=== PATIENT | male | born 1930 | race Caucasian/White ===

== ENCOUNTER 2017-12-14 12:53 | Emergency (ER) | payer MEDICARE, MEDICAID ==
[~2017-12-14] VITALS: Ht 162.6 cm; Wt 77.6 kg
[2017-12-14 12:55] VITALS: BP 145/70
== END 2017-12-14 13:26 | disposition home or self-care (01) ==
LOC: ER 12:56
DX: I95.9 Hypotension, unspecified (principal); F03.90 Unspecified dementia, unspecified severity, without behavioral disturbance, psychotic disturbance, mood disturbance, and anxiety; E11.9 Type 2 diabetes mellitus without complications; I10 Essential (primary) hypertension; I45.10 Unspecified right bundle-branch block; N40.0 Benign prostatic hyperplasia without lower urinary tract symptoms
CPT/HCPCS: A4606; Z7610

== ENCOUNTER 2018-02-24 18:03 | Inpatient (IN) | payer MEDICARE, MEDICAID ==
[~2018-02-24] VITALS: Ht 167.6 cm; Wt 72.1 kg
--- NOTE | 2018-02-24 18:10 | NUR ---
PT BIB RA C/O GENERALIZED WEAKNESS AND LETHARGY. DENIES PAIN, SOB, OR ACUTE DISTRESS. FOUND TO HAVE LOW BP AND BRADYCARDIA. NO CHEST PAIN. CAP REFILL WNL. RESP EVEN UNLABORED. SKIN WARM DRY. IN ER BED 14 ON MONITOR.
[2018-02-24] MEDS ORDERED: IV NS 0.9% 500 ML BAG IV ONE (19:00)
--- NOTE | 2018-02-24 19:09 | NUR ---
REPORT REC'D FROM DIMA ONEILL FOR LILLIAN.
--- NOTE | 2018-02-24 19:09 | NUR ---
Emi wallace in [facility] - 02/24/18 at 1911 by JOAO REPORT BAILEY FROM DIMA ONEILL FOR LILLIAN.
[2018-02-24 19:21] LABS: BASOPHILS # (AUTO) 0.1 /CMM (0.0-0.2); EOSINOPHILS % (AUTO) 0.1 % (0.0-6.0); HEMATOCRIT 31 % (39-51); HEMOGLOBIN 10.7 g/dL (13.5-17.5); LYMPHOCYTES # (AUTO) 0.6 /CMM (0.8-4.8); LYMPHOCYTES % (AUTO) 4.9 % (20.0-44.0); MEAN CORPUSCULAR HGB CONC 35 g/dl (31.0-36.0); MEAN CORPUSCULAR VOLUME 86 fL (80-96); MONOCYTES # (AUTO) 0.6 /CMM (0.1-1.30); MONOCYTES % (AUTO) 5.5 % (2.0-12.0); NEUTROPHILS % (AUTO) 88.5 % (43.0-81.0); PLATELET COUNT (AUTO) 402 /CMM (150-450); RDW COEFFICIENT OF VARIATION 14.1 (11.5-15.0); RED BLOOD CELL COUNT(AUTO) 3.62 MIL/uL (4.5-6.0); WHITE BLOOD COUNT (AUTO) 11.3 K/uL (4.3-11.0)
--- NOTE | 2018-02-24 19:24 | NUR ---
DR. MALONE IS AT THE BEDSIDE SPEAKING TO THE PT. PT IS MARCELLUS AT 39, HYPOXIC WITH O2 SAT AT 89-90% ON RA. PT PLACED ON 3L O2 VIA NC. SATURATING AT 94%. PT HAS 250ML NS INFUSING. PT'S BP IS LOW 89/49.
--- NOTE | 2018-02-24 19:26 | NUR ---
PER DR. MALONE, CALL DR. CARRILLO FOR CONSULT.
--- NOTE | 2018-02-24 19:26 | NUR ---
DR. MALONE IS SPEAKING TO Jarrod RHOD[facility]-
[2018-02-24 19:36] LABS: CALCIUM, SERUM 8.9 mg/dL (8.5-10.1); CARBON DIOXIDE 18 mmol/L (21-32); CHLORIDE 99 mmol/L (98-107); CREATININE 6.8 mg/dL (0.6-1.3); GLUCOSE 217 mg/dL (74-106); SODIUM SERUM 131 mmol/L (136-145); UREA NITROGEN, BLOOD 65 mg/dL (7-18)
[2018-02-24 19:38] LABS: INR 1.06 (0.85-1.15); POTASSIUM 8.2 mmol/L (3.5-5.1)
--- NOTE | 2018-02-24 19:39 | NUR ---
RECEIVED CRITICAL LAB VALUE, POTASSIUM 8.2
[2018-02-24] MEDS ORDERED: Calcium Gluconate 0.465 MEQ/ML VIAL IV ONE (19:46)
[2018-02-24 19:47] LABS: TROPONIN I 0.029 ng/mL (0.00-0.056)
[2018-02-24] MEDS ORDERED: INSULIN REGULAR, HUMAN 100 UNIT/ML 10 ML VIAL ONE (19:47)
[2018-02-24] MEDS ORDERED: DEXTROSE 50%-WATER 50 ML DISP.SYRIN ONE (19:47)
[2018-02-24] MEDS ORDERED: SODIUM POLYSTYRENE SULFONATE 15 G/60 ML BOTTLE ONE (19:47)
--- NOTE | 2018-02-24 19:50 | NUR ---
CALLED [facility] NEPHROLOGY MARKETING COMMUNICATIONS LEADER WAS PAGED.
[2018-02-24] MEDS ORDERED: SODIUM BICARBONATE SYR 50 MEQ/50 ML DISP.SYRIN ONE (19:56)
--- NOTE | 2018-02-24 19:57 | NUR ---
PT IS REC'ING MEDICATION ORDERED.
[2018-02-24] MEDS ORDERED: INSULIN REGULAR, HUMAN 100 UNIT/ML 10 ML VIAL IV ONE (20:00)
[2018-02-24] MEDS ORDERED: SODIUM BICARBONATE SYR 50 MEQ/50 ML DISP.SYRIN IV ONE (20:00)
[2018-02-24] MEDS ORDERED: DEXTROSE 50%-WATER 50 ML DISP.SYRIN IVP ONE (20:00)
[2018-02-24] MEDS ORDERED: ALBUTEROL FS 2.5 MG/3 ML VIAL.NEB NEB ONE (20:00)
[2018-02-24] MEDS ORDERED: Calcium Gluconate 1GM/10ML 4.65 MEQ in IV NS 0.9% 50 ML IV ONE (20:00)
[2018-02-24] MEDS ORDERED: SODIUM POLYSTYRENE SULFONATE 15 G/60 ML BOTTLE PO ONE (20:00)
--- NOTE | 2018-02-24 20:04 | NUR ---
INSULINE DOSAGE VERIFIED WITH HIDE SPLITTER MOISES.
--- NOTE | 2018-02-24 20:10 | NUR ---
CALLED DR FAISAL FLORES WAS PAGED.
--- NOTE | 2018-02-24 20:10 | NUR ---
CALLED RT RE: BREATHING TX FOR PT. PT'S FAMILY IS AT THE BEDSIDE.
--- NOTE | 2018-02-24 20:11 | NUR ---
2ND EKG DONE AT THE BEDSIDE. JUNCTIONAL RHYTHM NOTED. DR. PADILLA IS AWARE. Jarrod RHODES, [facility]
[2018-02-24] MEDS ORDERED: ALBUTEROL FS 2.5 MG/3 ML VIAL.NEB ONE (20:20)
--- NOTE | 2018-02-24 20:20 | NUR ---
CALLED DR CARMONA ON THE PHONE WITH DIA ESPITIA
--- NOTE | 2018-02-24 20:20 | NUR ---
CONSENT FOR JENNY CATH INERSTION IN CHART
[2018-02-24] MEDS ORDERED: HEPARIN SODIUM, PORCINE 5000 UNITS/1 ML VIAL ONE (20:33)
--- NOTE | 2018-02-24 20:45 | NUR ---
DR. CARMONA IS AT THE BEDSIDE FOR JENNY CATH INSERTION.
--- NOTE | 2018-02-24 20:55 | NUR ---
REPORT GIVEN TO DIMA JOHNS - ICU
[2018-02-24] MEDS ORDERED: VANCOMYCIN 1 GM in IV D5W 250 ML IV STA (20:58)
[2018-02-24] MEDS ORDERED: CEFTRIAXONE 2 G in IV D5W 100 ML IV ONE (21:00)
[2018-02-24] MEDS ORDERED: AZITHROMYCIN 500 MG in IV D5W 250 ML IV ONE (21:00)
--- NOTE | 2018-02-24 21:01 | NUR ---
JENNY CATH BEING INSERTED BY DR CARMONA - US GUIDED STERILE PROCEDURE
[2018-02-24] MEDS ORDERED: CEFTRIAXONE 1GM BAG (ER ONLY) 50 ML IV ONE ×2 (21:09→21:19)
--- NOTE | 2018-02-24 21:10 | NUR ---
CXR DONE AT THE BEDSIDE. JENNY CATH IN PLACE PER DR. CARMONA. OK TO USE FOR HD.
--- NOTE | 2018-02-24 21:11 | NUR ---
ENDORSING VANCO AND ZITHROMYCIN IVPB'S TO ICU NURSE. ORDERS IN CHART.
--- NOTE | 2018-02-24 21:25 | NUR ---
BLOOD CULTURES X2 DRAWN
[2018-02-24 21:39] LABS: PHOSPHORUS 3.2 mg/dL (2.5-4.9)
--- NOTE | 2018-02-24 21:43 | NUR ---
PT TRANSPORTED TO ICU PER PROTOCOL.
[2018-02-24 21:50] VITALS: BP 132/49
[2018-02-24 21:54] LABS: MAGNESIUM 1.1 mg/dL (1.8-2.4)
[2018-02-24 22:00] VITALS: BP 132/49
[2018-02-24] MEDS: PANTOPRAZOLE 40 MG VIAL IV SCH (22:10)
[2018-02-24] MEDS ORDERED: VANCOMYCIN 1 GM VIAL ONE (22:22)
--- NOTE | 2018-02-24 22:30 | NUR ---
RN NOTES 2150PM - BIANCA FROM LAB CALLED AND REPORT LACTIC ACID 7.0 AND MAGNESIUM = 1.1 , CALLED DR. DOLAN AND INFORMED THAT PT IS ON DIALYSIS AT THIS TIME. PER MD LACTIC ACID IS OK FOR NOW LONG PT IS ALERT AND NO FEVER. WITH NEW ORDER TO DO BMP AFTER DIALYSIS THEN IF THE POTASSIUM IS => 5.5 GIVE KAYEXALATE 30 GM., CBC AND BMP IN AM, AND GIVE ZOSYN 3.325 MG IV ONCE AND CHECK THE URINE OUTPUT OF THE PT. NOTED AND ACKNOWLEDGE ORDER.
[2018-02-24] MEDS ORDERED: AZITHROMYCIN 500 MG VIAL ONE (22:36)
[2018-02-24] MEDS: IV NS 0.9% 250 ML IV PRN (22:38)
--- NOTE | 2018-02-24 22:40 | NUR ---
RN NOTES 0 PM - ADMITTED AN 87Y/O MALE LATVIAN AOX3 WITH PERIODS OF CONFUSION AND FORGETFUL.UNDER DR. RIOS WITH HISTORY OF DEMENTIA, ALZHEIMER, HTN, BPH, DM, WITH NEW HD CATH INSERTED IN ER ON RIGHT CHEST WALL, NO ACTIVE BLEEDING PRESENT. NO ACUTE RESP DISTRESS ON O2 3LPM VIA NC SATING 95% PLACED ON TELE MONITOR REVEALS JUNCTIONAL RHYTHM HR 83. DENIES PAIN. PT IS PALE LOOKING AND FEELING OF COLD, PT IS AFEBRILE. IV SITE ON LFA G 18 AND RAC G 20 RUNNING WITH CEFTRIAXONE TOLERATED WELL IV SITE INTACT AND PATENT. FLUSHED WELL WITHOUT INFILTRATION. VANCOMYCIN AND AZITHROMYCIN WAS ORDERED IN ER BUT NOT GIVEN YET. PT STARTED DIALYSIS AT BEDSIDE WILL WAIT FOR DIALYSIS TO BE DONE THEN WILL GIVE THE REST OF IV ATB. KEPT PT CLEAN AND DRY. KEPT PT COMFORTABLE IN BED. WILL CLOSELY MONITOR.
[2018-02-24 23:00] VITALS: BP 97/60
[2018-02-24 23:58] LABS: CALCIUM, SERUM 8.2 mg/dL (8.5-10.1); CARBON DIOXIDE 20 mmol/L (21-32); CHLORIDE 99 mmol/L (98-107); GLUCOSE 209 mg/dL (74-106); POTASSIUM 5.6 mmol/L (3.5-5.1); SODIUM SERUM 135 mmol/L (136-145); UREA NITROGEN, BLOOD 44 mg/dL (7-18)
[2018-02-25] VITALS (28 sets, daily range): BP systolic 102–152; BP diastolic 35–94
[2018-02-25 00:04] LABS: BILIRUBIN,DIRECT 0.1 mg/dL (0.0-0.2); BILIRUBIN,TOTAL 0.2 mg/dL (0.2-1.0)
[2018-02-25] MEDS ORDERED: PIPERACILLIN /TAZOBACTAM 3.375 G in IV D5W 50 ML IV SCH (00:30)
[2018-02-25] MEDS ORDERED: SODIUM POLYSTYRENE SULFONATE 15 G/60 ML BOTTLE PO ONE (00:30)
[2018-02-25] MEDS ORDERED: PIPERACILLIN /TAZOBACTAM 3.375 G VIAL IV ONE (01:31)
--- NOTE | 2018-02-25 01:35 | NUR ---
RN NOTES INFORMED PT THAT MD ORDERED TO INSERT WEIR CATHETER TO HIM BUT AFTER EXPLAINING TO PATIENT TRANSLATED TO INDONESIAN LANGUAGE BY DOYLE OPTOMETRIST/PRACTICE OWNER, PT REFUSED RISK AND BENEFITS EXPLAINED BY DOYLE INEFFECTIVE
--- NOTE | 2018-02-25 03:35 | NUR ---
RN NOTES AFTER 15 MINUTES KAYEXALATE 30 GM. GIVEN PT HAD A VERY LARGE AMT. WATERY STOOL WITH SOME PARTICLES EVERY 30 MINUTES EXPLAINED AGAIN TO PATIENT REGARDING THE MEDS THAT HE TOOK. PT ASSISTED TO BEDSIDE COMMODE.
--- NOTE | 2018-02-25 06:24 | NUR ---
RN NOTES PT ASLEEP WELL ON BED AT THIS TIME. AFEBRILE. NO ACUTE RESP DISTRESS NO HYPOTENSION SHOWN. WITH FIRST DEGREE AVB WITH BBB HR 80'S DENIES PAIN. IV SITE INTACT AND PATENT. RCW JENNY CATH INTACT NO ACTIVE BLEEDING SHOWS. DIALYSIS TOLERATED WELL WITHOUT S/S OF HYPOTENSION. KEPT PT CLEAN AND DRY. WILL ENDORSED CONTINUITY OF CARE TO AM NURSE.
[2018-02-25 08:04] LABS: EOSINOPHILS % (AUTO) 0.1 % (0.0-6.0); HEMATOCRIT 29 % (39-51); HEMOGLOBIN 9.9 g/dL (13.5-17.5); LYMPHOCYTES # (AUTO) 0.7 /CMM (0.8-4.8); LYMPHOCYTES % (AUTO) 7.5 % (20.0-44.0); MEAN CORPUSCULAR HGB CONC 34 g/dl (31.0-36.0); MEAN CORPUSCULAR VOLUME 86 fL (80-96); MONOCYTES # (AUTO) 0.6 /CMM (0.1-1.30); MONOCYTES % (AUTO) 6.7 % (2.0-12.0); NEUTROPHILS # (AUTO) 7.9 /CMM (1.8-8.9); NEUTROPHILS % (AUTO) 85.7 % (43.0-81.0); PLATELET COUNT (AUTO) 355 /CMM (150-450); RDW COEFFICIENT OF VARIATION 14.9 (11.5-15.0); RED BLOOD CELL COUNT(AUTO) 3.35 MIL/uL (4.5-6.0); WHITE BLOOD COUNT (AUTO) 9.2 K/uL (4.3-11.0)
[2018-02-25] MEDS: PIPERACILLIN /TAZOBACTAM 2.25 G in IV D5W 50 ML IV SCH ×3 (08:23→21:06)
[2018-02-25] MEDS ORDERED: ACETAMINOPHEN 325 MG/SUPP.RECT RC PRN (08:30)
[2018-02-25] MEDS ORDERED: ASCO500T9 PO (09:25)
[2018-02-25] MEDS ORDERED: AMIN30LI4 PO (09:25)
[2018-02-25] MEDS ORDERED: ONDA4TAB5 PO (09:25)
[2018-02-25] MEDS ORDERED: MAGN400T26 PO (09:25)
[2018-02-25] MEDS ORDERED: MECL-102 PO (09:25)
[2018-02-25] MEDS ORDERED: CLON1PAT TD (09:25)
[2018-02-25] MEDS ORDERED: METF-441 PO (09:25)
[2018-02-25] MEDS ORDERED: PANT40TA2 PO (09:25)
[2018-02-25] MEDS ORDERED: POLY17PO4 PO (09:25)
[2018-02-25] MEDS ORDERED: INSU100V11 SQ (09:25)
[2018-02-25] MEDS ORDERED: BLOO-668 IN (09:25)
[2018-02-25] MEDS ORDERED: AMLO5TAB7 PO (09:25)
[2018-02-25] MEDS ORDERED: TAMS-12 PO (09:25)
[2018-02-25] MEDS ORDERED: DONE5TAB34 PO (09:25)
[2018-02-25] MEDS ORDERED: ACET-868 PO (09:25)
[2018-02-25] MEDS ORDERED: AMIO200T4 PO (09:25)
[2018-02-25] MEDS ORDERED: MULT-447 PO (09:25)
[2018-02-25 09:30] LABS: CALCIUM, SERUM 8.7 mg/dL (8.5-10.1); CHLORIDE 102 mmol/L (98-107); CREATININE 5.8 mg/dL (0.6-1.3); GLUCOSE 200 mg/dL (74-106); POTASSIUM 5.6 mmol/L (3.5-5.1); SODIUM SERUM 139 mmol/L (136-145); UREA NITROGEN, BLOOD 46 mg/dL (7-18)
[2018-02-25 09:41] LABS: CARBON DIOXIDE 24 mmol/L (21-32)
--- NOTE | 2018-02-25 10:02 | NUR ---
SPKE TO ATTENDING NURSE AT 0930, ORDERED WAS CLARIFIED, AND NURSE WILL CALL WHEN READY
[2018-02-25 11:13] LABS: MAGNESIUM 1.4 mg/dL (1.8-2.4)
[2018-02-25] MEDS ORDERED: PIPERACILLIN /TAZOBACTAM 2.25 G in IV D5W 50 ML IV SCH (13:00)
[2018-02-25] MEDS: Magnesium 1GM/D5W 100ML PREMIX 100 ML IV SCH ×2 (14:30→14:55)
[2018-02-25] MEDS ORDERED: ACETAMINOPHEN 650 MG/SUPP.RECT RC PRN (16:30)
[2018-02-25 18:44] LABS: FREE PSA 1.48 ng/mL (0.00-45); PROSTATE SPECIFIC ANTIGEN SCR 3.05 ng/mL (0.00-4.00); THYROID STIMULATING HORMONE 1.261 uIU/mL (0.358-3.74)
[2018-02-25] MEDS: PANTOPRAZOLE 40 MG VIAL IV SCH (21:05)
[2018-02-26] VITALS (24 sets, daily range): BP systolic 102–142; BP diastolic 47–78
[2018-02-26 04:49] LABS: BASOPHILS % (AUTO) 0.3 % (0.0-2.0); EOSINOPHILS % (AUTO) 2.7 % (0.0-6.0); HEMATOCRIT 29 % (39-51); HEMOGLOBIN 10.1 g/dL (13.5-17.5); LYMPHOCYTES # (AUTO) 0.9 /CMM (0.8-4.8); LYMPHOCYTES % (AUTO) 13.3 % (20.0-44.0); MEAN CORPUSCULAR HGB CONC 34 g/dl (31.0-36.0); MEAN CORPUSCULAR VOLUME 87 fL (80-96); MONOCYTES # (AUTO) 0.6 /CMM (0.1-1.30); MONOCYTES % (AUTO) 8.2 % (2.0-12.0); NEUTROPHILS # (AUTO) 5.2 /CMM (1.8-8.9); NEUTROPHILS % (AUTO) 75.5 % (43.0-81.0); PLATELET COUNT (AUTO) 326 /CMM (150-450); RDW COEFFICIENT OF VARIATION 14.8 (11.5-15.0); RED BLOOD CELL COUNT(AUTO) 3.38 MIL/uL (4.5-6.0); WHITE BLOOD COUNT (AUTO) 6.8 K/uL (4.3-11.0)
[2018-02-26 04:59] LABS: ALANINE AMINOTRANSFERASE 27 U/L (12-78); ALBUMIN 2.2 g/dL (3.4-5.0); ALKALINE PHOSPHATASE 51 U/L (46-116); ASPARTATE AMINOTRANSFERASE 17 U/L (15-37); BILIRUBIN,TOTAL 0.3 mg/dL (0.2-1.0); CALCIUM, SERUM 8.2 mg/dL (8.5-10.1); CARBON DIOXIDE 32 mmol/L (21-32); CHLORIDE 104 mmol/L (98-107); GLUCOSE 114 mg/dL (74-106); MAGNESIUM 2.8 mg/dL (1.8-2.4); PHOSPHORUS 3.4 mg/dL (2.5-4.9); POTASSIUM 4.3 mmol/L (3.5-5.1); SODIUM SERUM 141 mmol/L (136-145); TOTAL PROTEIN, SERUM 5.8 g/dL (6.4-8.2); UREA NITROGEN, BLOOD 23 mg/dL (7-18)
[2018-02-26] MEDS: PIPERACILLIN /TAZOBACTAM 2.25 G in IV D5W 50 ML IV SCH ×3 (05:01→21:22)
[2018-02-26] MEDS: IV NS 0.9% 1,000 ML IV PRN (05:43)
--- NOTE | 2018-02-26 06:52 | NUR ---
ICU/WARPER CREELER POSITIVE BLOOD CULTURE OF GRAM COCCI AND CLUSTER IN BLOOD. CHARGE AWARE PT IS ON ANTIBIOTICS, WILL PASS ON TO DAY NURSE.
--- NOTE | 2018-02-26 07:30 | NUR ---
JANITORIAL MAINTENANCE WORKER RECEIVED PATIENT ASLEEP, EASY TO WAKE UP ON 4 LITERS NASAL CANNULA SATURATING 98% WARM TO TOUCH LOW GRADE FEVER AT 99.0 MAINTAINED ON NPO ABLE TO USE URINAL MONITORED CLOSELY
[2018-02-26] MEDS: SOD FERRIC GLUC 125 MG in IV NS 0.9% 100 ML IV SCH (15:00)
[2018-02-26] MEDS: PANTOPRAZOLE 40 MG VIAL IV SCH (21:22)
[2018-02-27] VITALS (24 sets, daily range): BP systolic 122–169; BP diastolic 54–93
[2018-02-27] MEDS: IV NS 0.9% 1,000 ML IV PRN (00:30)
[2018-02-27] MEDS: PIPERACILLIN /TAZOBACTAM 2.25 G in IV D5W 50 ML IV SCH ×2 (04:31→12:59)
[2018-02-27 05:06] LABS: ALANINE AMINOTRANSFERASE 25 U/L (12-78); ALBUMIN 2.2 g/dL (3.4-5.0); ALKALINE PHOSPHATASE 49 U/L (46-116); ASPARTATE AMINOTRANSFERASE 15 U/L (15-37); BILIRUBIN,TOTAL 0.3 mg/dL (0.2-1.0); CALCIUM, SERUM 8.2 mg/dL (8.5-10.1); CARBON DIOXIDE 29 mmol/L (21-32); CHLORIDE 106 mmol/L (98-107); CREATININE 4.4 mg/dL (0.6-1.3); GLUCOSE 135 mg/dL (74-106); SODIUM SERUM 142 mmol/L (136-145); TOTAL PROTEIN, SERUM 5.8 g/dL (6.4-8.2); UREA NITROGEN, BLOOD 25 mg/dL (7-18)
[2018-02-27 05:19] LABS: BASOPHILS % (AUTO) 0.4 % (0.0-2.0); EOSINOPHILS % (AUTO) 4.6 % (0.0-6.0); HEMATOCRIT 31 % (39-51); HEMOGLOBIN 10.4 g/dL (13.5-17.5); LYMPHOCYTES # (AUTO) 1.2 /CMM (0.8-4.8); LYMPHOCYTES % (AUTO) 15.6 % (20.0-44.0); MEAN CORPUSCULAR HGB CONC 34 g/dl (31.0-36.0); MEAN CORPUSCULAR VOLUME 88 fL (80-96); MONOCYTES # (AUTO) 0.6 /CMM (0.1-1.30); MONOCYTES % (AUTO) 7.2 % (2.0-12.0); NEUTROPHILS # (AUTO) 5.6 /CMM (1.8-8.9); NEUTROPHILS % (AUTO) 72.2 % (43.0-81.0); PLATELET COUNT (AUTO) 354 /CMM (150-450); RDW COEFFICIENT OF VARIATION 14.9 (11.5-15.0); RED BLOOD CELL COUNT(AUTO) 3.56 MIL/uL (4.5-6.0); WHITE BLOOD COUNT (AUTO) 7.7 K/uL (4.3-11.0)
[2018-02-27 06:32] LABS: MAGNESIUM 1.6 mg/dL (1.8-2.4); PHOSPHORUS 3.1 mg/dL (2.5-4.9)
--- NOTE | 2018-02-27 07:36 | NUR ---
ICU/RN - Initial Notes Received pt in bed awake, alert and oriented x3, Italian speaking. Respirations even and unlabored on O2 @ 4lpm via nasal cannula. No s/s of pain or discomfort. On tele reading SR 73 1st deg block with BB. IV patent and intact with IVF infusing well. Safety and comfort measures in place. Will continue to monitor pt closely.
[2018-02-27] MEDS ORDERED: Magnesium 1GM/D5W 100ML PREMIX 100 ML IV SCH (11:30)
--- NOTE | 2018-02-27 11:30 | NUR ---
ICU/RN - Notes Hemodialysis completed with no output noted. VSS.
[2018-02-27] MEDS: IV NS 0.9% 250 ML IV PRN (12:59)
[2018-02-27] MEDS: SOD FERRIC GLUC 125 MG in IV NS 0.9% 100 ML IV SCH (13:58)
[2018-02-27] MEDS ORDERED: VANCOMYCIN 500 MG in IV D5W 100 ML IV PRN (14:30)
[2018-02-27] MEDS ORDERED: FEE PK DOSING 1 MIN EA MC ONE (14:44)
[2018-02-27 15:09] LABS: CREATININE, URINE 15.3 MG/DL (30.0-125.0)
[2018-02-27] MEDS ORDERED: VANCOMYCIN 1 GM in IV D5W 250 ML IV ONE (16:00)
--- NOTE | 2018-02-27 18:30 | NUR ---
ICU/RN - Notes Dr Ferrell at bedside for evaluation. Per MD would like to keep pt in ICU for one more night. PT/OT evaluation ordered. Pt in no acute distress at this time. Resting comfortably in bed.
[2018-02-27] MEDS: Magnesium 1GM/D5W 100ML PREMIX 100 ML IV SCH ×2 (18:36→20:09)
--- NOTE | 2018-02-27 19:30 | NUR ---
RN NOTES PT RESTING ON BED WITH RESPIRATION EVEN AND UNLABORED. PT IS AOX3 ABLE TO VERBALIZED NEEDS IN POLISH LANGUAGE. DENIES PAIN. SR WITH FIRST DEGREE BLOCK WITH BBB HR 79 ON TELE MONITOR. IV SITE ON RAC G 20 AND RFA G 22 RUNNING WITH FIRST BAG OF MAGNESIUM INTACT AND PATENT. RIGHT JENNY CATH WITH CLEANED DRESSING. KEPT PT CLEANED AND DRY. BED LOCKED AND SECURED ALARMED ON. WILL MONITORED CLOSELY.
[2018-02-27] MEDS: PANTOPRAZOLE 40 MG VIAL IV SCH (21:24)
[2018-02-28] VITALS (24 sets, daily range): BP systolic 119–183; BP diastolic 48–83
--- NOTE | 2018-02-28 00:50 | NUR ---
RN NOTES REPORT GIVEN TO CASSANDRA CH FOR CONTINUITY OF CARE
[2018-02-28 05:04] LABS: BASOPHILS % (AUTO) 0.3 % (0.0-2.0); EOSINOPHILS % (AUTO) 5.4 % (0.0-6.0); HEMATOCRIT 30 % (39-51); HEMOGLOBIN 10.3 g/dL (13.5-17.5); LYMPHOCYTES % (AUTO) 14.3 % (20.0-44.0); MEAN CORPUSCULAR HGB CONC 34 g/dl (31.0-36.0); MEAN CORPUSCULAR VOLUME 87 fL (80-96); MONOCYTES # (AUTO) 0.6 /CMM (0.1-1.30); NEUTROPHILS # (AUTO) 5.3 /CMM (1.8-8.9); PLATELET COUNT (AUTO) 338 /CMM (150-450); RDW COEFFICIENT OF VARIATION 14.9 (11.5-15.0); RED BLOOD CELL COUNT(AUTO) 3.48 MIL/uL (4.5-6.0); WHITE BLOOD COUNT (AUTO) 7.3 K/uL (4.3-11.0)
[2018-02-28 05:29] LABS: ALANINE AMINOTRANSFERASE 21 U/L (12-78); ALBUMIN 2.1 g/dL (3.4-5.0); ALKALINE PHOSPHATASE 45 U/L (46-116); ASPARTATE AMINOTRANSFERASE 17 U/L (15-37); BILIRUBIN,TOTAL 0.2 mg/dL (0.2-1.0); CALCIUM, SERUM 7.7 mg/dL (8.5-10.1); CARBON DIOXIDE 29 mmol/L (21-32); CHLORIDE 103 mmol/L (98-107); CREATININE 2.8 mg/dL (0.6-1.3); GLUCOSE 133 mg/dL (74-106); MAGNESIUM 2.1 mg/dL (1.8-2.4); PHOSPHORUS 2.7 mg/dL (2.5-4.9); POTASSIUM 3.9 mmol/L (3.5-5.1); SODIUM SERUM 140 mmol/L (136-145); TOTAL PROTEIN, SERUM 5.6 g/dL (6.4-8.2); UREA NITROGEN, BLOOD 13 mg/dL (7-18)
--- NOTE | 2018-02-28 06:59 | NUR ---
RN NOTE NO CHANGES ON MY SHIFT, PATIENT IS STABLE, RESTED WELL AT NIGHT, SO2 99% ON 4 L VIA NASAL CANULA, SR ON THE MONITOR, ALL SAFETY MEASURES TAKEN, BED ALARM ACTIVATED, BED IN THE LOWEST POSITION, CALL LIGHT WITHIN REACH, SIDE RAILS UP X 2, WILL ENDORSE TO THE NEXT SHIFT FOR LILLIAN
--- NOTE | 2018-02-28 07:30 | NUR ---
ICU/RN - AM NOTES RECEIVED PT IN BED, AAO X 3, SYRIAC SPEAKING BUT ABLE TO MAKE NEEDS KNOWN, ON O2 AT 4L NC, NOT IN ANY DISTRESS, BEDSIDE READING SR HR 86 WITH 1ST DEG BLOCK WITH BB, DENIES CHEST PAIN OR DISCOMFORT, RAC G 20 AND LEFT FA GSS, FLUSHES WELL, BOTH SITES CLEAR, IVF TKO. ON CCHO DIET. USES BSC AND URINAL. NEEDS ANTICIPATED, CALL LIGHT WITHIN REACH. SAFETY MEASURES IN PLACE. WILL CONTINUE TO MONITOR.
--- NOTE | 2018-02-28 09:35 | NUR ---
PING PONG TABLE ASSEMBLER NOTES PATIENT SEEN BY DR. DOLAN EARLIER. OK TO TRANSFER TO TELEMETRY.
--- NOTE | 2018-02-28 15:30 | NUR ---
QUALITY AUDITOR NOTES PATIENT TRANSFERRED TO ROOM 314-1 WITH ALL THE BELONGINGS. REPORT GIVEN TO SANDRITA CH FOR LILLIAN. FERRLECIT IV CALLED TO PHARMACY EARLIER NOT YET AVAILABLE.
--- NOTE | 2018-02-28 15:38 | NUR ---
PLUG SORTER INFORMED FIELD APPRAISER THAT MEDICAL RECONCILIATION IS NOT YET DONE, JOHN FIELD APPRAISER WILL CALL DR. DOLAN SHE SAID TO TRANSFER PATIENT RIGHT AWAY
--- NOTE | 2018-02-28 15:45 | NUR ---
WHOLESALER NOTES RECEIVED PATIENT IN STABLE CONDITION FROM ICU VIA HOSPITAL BED. A/O X3 KHMER SPEAKING. HARD OF HEARING, HAS RIGHT HEARING AID ON BEDSIDE. NO ACUTE DISTRESS, NO SOB NOTED. DENIES PAIN OR DISCOMFORT. FAMILY AT BEDSIDE. IV SITE INTACT AND PATENT. KEPT PATIENT SAFE AND COMFORTABLE. ALL BELONGINGS CHECKED AT BEDSIDE, CHECKLIST DONE. BED IN LOW/LOCKED POSITION, SIDERAILS UP, CALL LIGHT IN REACH. WILL CONTINUE TO MONITOR ACCORDINGLY.
[2018-02-28] MEDS: SOD FERRIC GLUC 125 MG in IV NS 0.9% 100 ML IV SCH (17:11)
--- NOTE | 2018-02-28 19:30 | NUR ---
RN CLOSING NOTES PATIENT IN STABLE CONDITION. NO ACUTE DISTRESS, NO SOB NOTED. ALL NEED ATTENDED AND PROVIDED. KEPT PATIENT SAFE AND COMFORTABLE. BED IN LOW/LOCKED POSITION, CALL LIGHT IN REACH. ENDORSED TO FILTERING MACHINE TENDER HELPER RN FOR LILLIAN.
--- NOTE | 2018-02-28 19:31 | NUR ---
RN NOTES RECEIVED PT AWAKE, HOB ELEVATED, WITH O2 INHALATION AT 4LPM VIA NC. PT ALERT AND ORIENTED X3, [place]ER SPEAKING WITH FAMILY AT BEDSIDE. DENIES ANY PAIN AND DISCOMFORT AT THIS TIME. IV ACCESS ON RIGHT FOREARM AND RIGHT AC PATENT AND INTACT. KEPT BED IN THE LOWEST POSITION, LOCKED, SIDE RAILS X2 UP WITH CALL LIGHT WITHIN REACH. PLAN OF CARE DISCUSSED WITH PT AND FAMILY AND VERBALIZED UNDERSTANDING. WILL CONTINUE TO MONITOR PT.
[2018-02-28] MEDS: PANTOPRAZOLE 40 MG VIAL IV SCH (21:59)
[2018-03-01] VITALS (7 sets, daily range): BP systolic 127–154; BP diastolic 56–80
--- NOTE | 2018-03-01 06:20 | NUR ---
RN NOTES PT REMAINS STABLE OVERNIGHT. VITAL SIGNS STABLE, ON O2 INHALATION AT 2LPM VIA NC AND TOLERATED WELL. TELE MONITOR READS SINUS RHYTHM WITH 1ST DEGREE AVB AND BBB WITH HEART RATE AT 66. DENIES PAIN, NAUSEA AND VOMITING. VOIDING WELL WITH GOOD OUTPUT. SAFETY MEASURES AND FALL PRECAUTION OBSERVED. ALL NEEDS ATTENDED. WILL ENDORSE TO MORNING RN FOR CONTINUITY OF CARE.
[2018-03-01 06:45] LABS: BASOPHILS % (AUTO) 0.2 % (0.0-2.0); EOSINOPHILS % (AUTO) 4.7 % (0.0-6.0); HEMATOCRIT 30 % (39-51); HEMOGLOBIN 10.3 g/dL (13.5-17.5); LYMPHOCYTES # (AUTO) 1.1 /CMM (0.8-4.8); MEAN CORPUSCULAR HGB CONC 34 g/dl (31.0-36.0); MEAN CORPUSCULAR VOLUME 87 fL (80-96); MONOCYTES # (AUTO) 0.5 /CMM (0.1-1.30); MONOCYTES % (AUTO) 6.6 % (2.0-12.0); NEUTROPHILS # (AUTO) 5.4 /CMM (1.8-8.9); NEUTROPHILS % (AUTO) 73.5 % (43.0-81.0); PLATELET COUNT (AUTO) 339 /CMM (150-450); RDW COEFFICIENT OF VARIATION 14.9 (11.5-15.0); RED BLOOD CELL COUNT(AUTO) 3.46 MIL/uL (4.5-6.0); WHITE BLOOD COUNT (AUTO) 7.4 K/uL (4.3-11.0)
[2018-03-01 07:11] LABS: CALCIUM, SERUM 7.9 mg/dL (8.5-10.1); CARBON DIOXIDE 32 mmol/L (21-32); CHLORIDE 105 mmol/L (98-107); CREATININE 3.1 mg/dL (0.6-1.3); GLUCOSE 116 mg/dL (74-106); MAGNESIUM 1.9 mg/dL (1.8-2.4); SODIUM SERUM 141 mmol/L (136-145); UREA NITROGEN, BLOOD 15 mg/dL (7-18); VANCOMYCIN,TROUGH 12 ug/ml (12-20)
--- NOTE | 2018-03-01 07:46 | NUR ---
LOAD TALLIER/OPENING NOTES RECEIVED PT. IN BED SLEEPING. BREATHING UNLABORED, AND EVENLY ON OXYGEN AT 4L/MIN VIA NASAL CANNULA. NO S/S OF SOB, AND NO SIGNS OF ACUTE DISTRESS. BED IS IN LOWEST, AND LOCKED POSITION. 2 SIDE RAILS UP, AND CALL LIGHT IS WITHIN REACH. ALL NEEDS MET. WILL CONTINUE TO ASSESS AND MONITOR.
--- NOTE | 2018-03-01 10:13 | NUR ---
RN NOTES PT. WAS SEEN AND EXAMINED BY DR. JOSTIN V. PER PT. NEEDS TO CONTINUE TO TELE MONITORING.
[2018-03-01] MEDS ORDERED: LORAZEPAM 1 MG TABLET ONE (14:58)
[2018-03-01] MEDS: SOD FERRIC GLUC 125 MG in IV NS 0.9% 100 ML IV SCH (15:09)
--- NOTE | 2018-03-01 15:25 | NUR ---
RN NOTES PT. RECEIVED HEMODIALYSIS, AND 2000 CC REMOVED. PT. IS IN MEDICALLY STABLE CONDITION.
--- NOTE | 2018-03-01 16:04 | NUR ---
PT. IS BEING SEEN AND EXAMINED BY PHYSICAL THERAPIST.
--- NOTE | 2018-03-01 18:46 | NUR ---
INTEGRATION SOLUTION ARCHITECT/CLOSING NOTES PT. IS IN BED A&OX3. TELE READING SINUS RHYTHM AV 1 DEGREE BLOCK WITH BUNDLE BRANCH BLOCK AT 76 BPM. BREATHING UNLABORED, AND EVENLY ON ROOM AIR. NO S/S OF SOB, AND NO SIGNS OF ACUTE DISTRESS. IV ACCESS ON RIGHT FOREARM IS INTACT AND PATENT. BED IS IN LOWEST, AND LOCKED POSITION. URINAL NEAR BEDSIDE. PT. RECEIVED PHYSICAL THERAPY TODAY, AND HAS FWW AT BEDSIDE. 2 SIDE RAILS UP, AND CALL LIGHT IS WITHIN REACH. ALL NEEDS MET. WILL CONTINUE TO ASSESS AND MONITOR.
--- NOTE | 2018-03-01 19:23 | NUR ---
RN NOTES RECEIVE PT IN BED A/O X3 , NO S/S OF DISTRESS, STABLE, SAFETY MEASURES IN PLACE, CALL LIGHT WITHIN REACH, WILL CONTINUE TO MONITOR
[2018-03-01] MEDS: PANTOPRAZOLE 40 MG VIAL IV SCH (21:08)
[2018-03-02] VITALS (7 sets, daily range): BP systolic 139–164; BP diastolic 71–87
--- NOTE | 2018-03-02 00:40 | NUR ---
PAGED DR. DOLAN SPOKE TO DR. DOLAN RELAYED M.D BP OF THE PATIENT 164/[address] DOLAN GIVE CLONIDINE 0.1 MG PO 1 TAB PO Q8HR PRN FOR SBP >160 AND NORVASC 5 MG 1 TAB PO Q12HR HOLD IF SBP LESS THAN 110 READ BACK AND VERIFIED NOTED AND CARRIED OUT
[2018-03-02] MEDS ORDERED: CLONIDINE HCL 0.1 MG TABLET PO PRN (01:00)
--- NOTE | 2018-03-02 06:21 | NUR ---
CHAIN BUILDER LOOM CONTROL NOTES PT ASLEEP COMFORTABLY IN BED AND EASILY AWAKEN HEAD OF BED ELEVATED FOR BETTER LUNG EXPANSION AND GOOD CIRCULATION. ON 2LPM VIA NC 02 SAT 94% NOT IN RESPIRATORY DISTRESS. . NO COMPLAINS OF PAIN. STABLE CONDITION. PT KEPT CLEAN AND DRY AND COMFORT. NURSING CARE RENDERED. NEEDS ATTENDED AND ANTICIPATED. GOOD SKIN CARE PROVIDED. ASSISTED REPOSITION EVERY 2 HOURS. ON LOW BED TO ENSURE SAFETY, CALL LIGHT WITHIN REACH, WILL ENDORSE TO THE NEXT SHIFT CONTINUE PLAN OF CARE
--- NOTE | 2018-03-02 07:15 | NUR ---
RN OPENING TELE NOTES RECEIVED PT. IN BED A&OX3. PT. REPORTED HE DID NOT SLEEP WELL LAST NIGHT. TELE MONITOR READING SINUS RHYTHM WITH 1ST DEGREE AV BLOCK AND BBB AT 62 BPM. BREATHING UNLABORED ON OXYGEN AT 3L/MIN VIA NASAL CANNULA. NO SOB. NO S/S OF ACUTE DISTRESS. URINAL AT BEDSIDE. BED IS IN LOWEST, AND LOCKED POSITION, AND 2 SIDE RAILS UP. INSTRUCTED PT. TO USE CALL LIGHT FOR ASSISTANCE. ALL NEEDS MET. WILL CONTINUE TO ASSESS AND MONITOR.
[2018-03-02] MEDS: AMLODIPINE BESYLATE 5 MG TABLET PO SCH ×2 (08:45→20:50)
[2018-03-02] MEDS ORDERED: IRON ASPGLY&PS/C/B12/FA/CA/SUC 1 CAP CAPSULE PO SCH (09:30)
[2018-03-02] MEDS: SOD FERRIC GLUC 125 MG in IV NS 0.9% 100 ML IV SCH (14:08)
[2018-03-02] MEDS: hydrALAZINE HCL 25 MG TABLET PO SCH (17:02)
--- NOTE | 2018-03-02 19:30 | NUR ---
RN CLOSING TELE NOTES PT. IS IN BED A&OX3. PT. REPORTED HE DID NOT SLEEP WELL LAST NIGHT. TELE MONITOR READING SINUS RHYTHM WITH 1ST DEGREE AV BLOCK AND BBB. BREATHING UNLABORED ON ROOM AIR. NO SOB. NO S/S OF ACUTE DISTRESS. URINAL AT BEDSIDE. BED IS IN LOWEST, AND LOCKED POSITION, AND 2 SIDE RAILS UP. INSTRUCTED PT. TO USE CALL LIGHT FOR ASSISTANCE. ALL NEEDS MET. WILL ENDORSE TO NURSE, PT. IS NPO AFTER MIDNIGHT FOR A PERMCATH PLACEMENT PROCEDURE WITH DR. CARMONA SCHEDULED IN THE AFTERNOON, AND PT. WAS INFORMED ABOUT PROCEDURE, AND VERBALIZED UNDERSTANDING.
--- NOTE | 2018-03-02 20:00 | NUR ---
TELE/RN OPENING NOTES PATIENT IN BED, ALERT, ORIENTED, ABLE TO VERBALIZE NEEDS, CAN UNDERSTAND CHINESE BUT SPEAKS SWEDISH, DISCUSSED PLAN OF CARE,CONSENT RECEIVED AND SIGNED FOR PROCEDURE DISCUSSED BY MD FOR PERMACATHETER PLACEMENT TOMORROW, MADE AWARE, BELONGINGS CHECK, WITH DENTURES, YELLOW RING AND WATCH, TELE READING SR AT 70 AV BLOCK WITH BBB, , RFA PATENT W/ NO S/S OF INFILTRATION, PROVIDE FLUIDS, O2 SAT AT 2l, RESPIRATIONS EVEN AND UNLABORED, USES URINAL. CALL LIGHTS WITHIN REACH, BED IN LOCK POSITION, DENIES PAIN. WILL MONITOR, RECEIVED ENDORSEMENT FROM AM RN FOR LILLIAN.
[2018-03-02] MEDS: PANTOPRAZOLE 40 MG VIAL IV SCH (21:27)
[2018-03-03] VITALS: BP 140/62
[2018-03-03 04:00] VITALS: BP 145/74
--- NOTE | 2018-03-03 06:40 | NUR ---
327-2 PATIENT IN BED, ABLE TO SLEEP DURING THE NIGHT, KEEP COMFORTABLE, RESPIRATIONS EVEN AND UNLABORED, USES URINAL,REPOSITION FOR COMFORT. WILL ENDORSE TO AM RN FOR LILLIAN. BED IN LOCK POSITION, WILL ENDORSE TO AM RN FOR LILLIAN.
[2018-03-03 08:00] VITALS: BP 155/77
--- NOTE | 2018-03-03 08:00 | NUR ---
RN NOTES SEEN PATIENT IN THE BED A/O X3,DIVEHI SPEAKER MALE. PATIENT ON TELE MONITOR, SR-69/70 AT THIS TIME. PATIENT ON O2-2L NC, PATIENT HAS NO RESPIRATORY DISTRESS. PATIENT HAS HARD OF HEARING, V/S STABLE, NPO BECAUSE PERMCATH PLACEMENT. SCHEDULED MEDICATION ADMINISTERED, PATIENT AMBULATORY. PATIENT REFUSED PAIN AT THIS TIME. NEEDS ATTENDED AND ANTICIPATED, CONTINUED MONITORING. CALL LIGHT WITHIN TO REACH.
[2018-03-03 08:22] LABS: BASOPHILS % (AUTO) 0.2 % (0.0-2.0); HEMATOCRIT 31 % (39-51); HEMOGLOBIN 10.8 g/dL (13.5-17.5); LYMPHOCYTES # (AUTO) 1.5 /CMM (0.8-4.8); LYMPHOCYTES % (AUTO) 18.2 % (20.0-44.0); MEAN CORPUSCULAR HGB CONC 35 g/dl (31.0-36.0); MEAN CORPUSCULAR VOLUME 85 fL (80-96); MONOCYTES # (AUTO) 0.6 /CMM (0.1-1.30); MONOCYTES % (AUTO) 6.8 % (2.0-12.0); NEUTROPHILS % (AUTO) 70.8 % (43.0-81.0); PLATELET COUNT (AUTO) 317 /CMM (150-450); RDW COEFFICIENT OF VARIATION 13.6 (11.5-15.0); WHITE BLOOD COUNT (AUTO) 8.4 K/uL (4.3-11.0)
[2018-03-03 08:36] LABS: ALANINE AMINOTRANSFERASE 15 U/L (12-78); ALBUMIN 2.3 g/dL (3.4-5.0); ALKALINE PHOSPHATASE 51 U/L (46-116); ASPARTATE AMINOTRANSFERASE 19 U/L (15-37); BILIRUBIN,TOTAL 0.2 mg/dL (0.2-1.0); CALCIUM, SERUM 8.2 mg/dL (8.5-10.1); CARBON DIOXIDE 30 mmol/L (21-32); CHLORIDE 106 mmol/L (98-107); CREATININE 2.8 mg/dL (0.6-1.3); GLUCOSE 142 mg/dL (74-106); MAGNESIUM 2.1 mg/dL (1.8-2.4); POTASSIUM 3.9 mmol/L (3.5-5.1); SODIUM SERUM 142 mmol/L (136-145); TOTAL PROTEIN, SERUM 5.8 g/dL (6.4-8.2); UREA NITROGEN, BLOOD 20 mg/dL (7-18)
[2018-03-03] MEDS: AMLODIPINE BESYLATE 5 MG TABLET PO SCH ×2 (09:42→21:15)
[2018-03-03] MEDS: hydrALAZINE HCL 25 MG TABLET PO SCH ×2 (09:42→18:10)
--- NOTE | 2018-03-03 12:37 | NUR ---
rn notes FINISHED HEMODIALYSIS AT THIS TIME, OUTPUT WAS 2000ML, BP -112/65, P- 68, PATIENT ALSO URINATED 200 ML, CALL LIGHT WITHIN TO REACH. PATIENT STILL NPO GOING TO PERMCATH PLACEMENT SCHEDULED 1499. NO ACUTE DISTRESS. CONTINUED MONITORING.
[2018-03-03] MEDS ORDERED: LIDOCAINE 1% INJ 50 ML MDV IJ ONE (15:14)
[2018-03-03] MEDS ORDERED: HEPARIN SODIUM, PORCINE 1,000 UNIT/ML VIAL ONE (15:14)
[2018-03-03 16:00] VITALS: BP 134/71
--- NOTE | 2018-03-03 16:00 | NUR ---
RN NOTES PATIENT COMPUTER LABORATORY TECHNICIAN AT THIS TIME FOR PERMCATH PLACEMENT.
--- NOTE | 2018-03-03 18:00 | NUR ---
RN NOTES PATIENT BACK FROM SURGERY, AWAKE, A/O X3, NO ACUTE RESPIRATORY DISTRESS, PATIENT HAS A HEMODIALYSIS CATH ON RIGHT UPPER CHEST INTACT. V/S TAKEN BP -158/78, P-68, R-18. PATIENT REFUSED PAIN AT THIS TIME. NEEDS ATTENDED AND ANTICIPATED, CALL LIGHT WITHIN TO REACH, ORDERS FAXED TO THE PHARMACY. SCHEDULED MEDICATION ADMINISTERED. CONTINUED MONITORING.
--- NOTE | 2018-03-03 18:30 | NUR ---
RN NOTES PATIENT EATING AT THIS TIME, NO ACUTE RESPIRATORY DISTRESS, FAMILY NEXT TO THE BED. NEEDS ATTENDED AND ANTICIPATED, CALL LIGHT WITHIN TO REACH, ENDORSED ONCOMING NURSE FOR LILLIAN.
[2018-03-03 20:00] VITALS: BP 135/68
[2018-03-03] MEDS: PANTOPRAZOLE 40 MG VIAL IV SCH (21:15)
[2018-03-03] MEDS ORDERED: CEFAZOLIN 1 GM in IV D5W 50 ML IV SCH (22:30)
[2018-03-03] MEDS ORDERED: CEFAZOLIN 1 GM ONE (22:53)
[2018-03-04 00:37] VITALS: BP 134/57
[2018-03-04 04:44] VITALS: BP 137/60
--- NOTE | 2018-03-04 06:58 | NUR ---
LVN NOTES AWAKE & RESPONSIVE. NOT IN ANY DISTRESS. NO SOB NOTED. DENIES ANY PAIN OR DISCOMFORT AT THIS TIME. ON TELE SR @ 75 WITH IV-HL PATENT & INTACT. MONITORED ACCORDINGLY. CALL LIGHT WITHIN REACH. BED IN LOWEST POSITION. SR UP X 2 FOR SAFETY. WILL ENDORSE TO NEXT SHIFT.
[2018-03-04] MEDS ORDERED: CEFAZOLIN SODIUM/DEXTROSE,ISO 50 ML IV ONE (07:00)
--- NOTE | 2018-03-04 07:15 | NUR ---
MS RN OPENING NOTES RECEIVED PT FROM NIGHTSHIFT NURSE IN STABLE CONDITION .PT IS A/O X3. NO SOB OR SIGNS OF DISTRESS NOTED. BREATHING IS EVEN AND UNLABORED. HE DENIES ANY PAIN AT THIS TIME. OV TO RIGHT FA IS NOTED TO BE PATENT AND INTACT. NO REDNESS OR SIGNS OF INFILTRATION NOTED. NEW HD CATHETER TO RIGHT CHEST WALL NOTED. BED IS IN LOW LOCKED POSITION, SIDE RAILS UP X2, CALL LIGHT WITHIN REACH, WILL CONTINUE TO MONITOR
[2018-03-04 08:00] VITALS: BP 127/69
[2018-03-04] MEDS ORDERED: CEFAZOLIN SODIUM/DEXTROSE,ISO 50 ML IV SCH (09:00)
[2018-03-04 09:07] VITALS: BP 127/69
[2018-03-04] MEDS: AMLODIPINE BESYLATE 5 MG TABLET PO SCH (09:07)
[2018-03-04] MEDS: hydrALAZINE HCL 25 MG TABLET PO SCH (09:07)
[2018-03-04] MEDS ORDERED: ACET650S11 RC (09:10)
[2018-03-04] MEDS ORDERED: [UNRECOGNIZED DRUG - OTHER] PO (09:10)
[2018-03-04] MEDS ORDERED: PANT40VI IV (09:10)
[2018-03-04] MEDS ORDERED: AMLO5TAB7 PO (09:10)
[2018-03-04] MEDS ORDERED: HYDR-4076 PO (09:10)
[2018-03-04] MEDS ORDERED: CLON0.1T14 PO (09:20)
[2018-03-04] MEDS ORDERED: ATOR20TA PO (09:20)
--- NOTE | 2018-03-04 10:28 | NUR ---
MS RN NOTES PT'S DAUGHTER NICOLE CALLED IN REGARDS TO PT'S CONDITION AND TO INQUIRE ABOUT HOME DIALYSIS UPON DISCHARGE. PER NICOLE "WE NEED MY DAD TO HAVE DIALYSIS AT HOME BECAUSE WE CAN'T GET HIM TO THE FACILITY". SHE WAS DIRECTED TO SPEAK TO THE WATER ATTENDANT I HAVE NOT KNOWLEDGE OF THIS. WATER ATTENDANT FATUMA MADE AWARE AND STATES THE SHE WILL SPEAK TO THE FAMILY
--- NOTE | 2018-03-04 11:24 | NUR ---
MS RN NOTES PT'S DAUGHTER IN LAW CHRIS CALLED IN REGARDS TO PT;S D/C AND STATES THAT SHE WILL BE HERE AROUND 3 OR 4 TO TAKE THE PT HOME
--- NOTE | 2018-03-04 16:35 | NUR ---
MS RAIL CAR WELDER NOTES PT WAS DISCHARGED FROM FACILITY IN STABLE CONDITION. ALL NEEDS WERE MET DURING SHIFT AND ORDERS CARRIED OUT ACCORDINGLY. ALL DUE MEDS GIVEN. DISCHARGE INSTRUCTIONS PROVIDED UTILIZING EXITCARE AND DISCHARGE MATERIALS TO BOTH THE PT AND HIS DAUGHTER IN LAW. HE WAS SAFELY ESCORTED TO THE LOBBY AND LEFT VIA PRIVATE VEHICLE.
[2018-03-05] MEDS ORDERED: MULTIVIT, IRON, MIN NO. 8, FA 1 TAB PO SCH (09:00)
[2018-03-23] MEDS ORDERED: INSU100V28 SQ (08:47)
[2018-03-23] MEDS ORDERED: AMLO5TAB7 PO (08:47)
[2018-03-23] MEDS ORDERED: INSU100I30 SQ (08:47)
[2018-03-23] MEDS ORDERED: Blood Sugar Diagnostic IN (08:47)
[2018-03-23] MEDS ORDERED: PANT40VI PO (08:47)
[2018-03-23] MEDS ORDERED: Polyvinyl Alcohol EACHEYE (08:47)
[2018-03-23] MEDS ORDERED: CLON1PAT2 TD (08:47)
[2018-03-23] MEDS ORDERED: HYDR20VI4 IV (08:47)
[2018-05-19] MEDS ORDERED: AMLO5TAB7 GT (19:28)
== END 2018-03-04 16:14 | disposition home or self-care (01) | DRG 871 ==
LOC: ER 18:06 → ICU 20:49 → TELE 02-28 15:16 → MED 03-01 08:00 → TELE 03-01 10:30 → MED 03-02 08:53 → TELE 03-02 08:55 → MED 03-04 08:31
PROVIDERS: ADMIT Family Medicine; ATTEND Family Medicine
PROC: 05HM33Z Insertion of Infusion Device into Right Internal Jugular Vein, Percutaneous Approach (ICD-10-PCS; principal; 2018-02-24)
PROC: B543ZZA Ultrasonography of Right Jugular Veins, Guidance (ICD-10-PCS; 2018-02-24)
PROC: 5A1D70Z Performance of Urinary Filtration, Intermittent, Less than 6 Hours Per Day (ICD-10-PCS; 2018-02-24)
PROC: 5A1D70Z Performance of Urinary Filtration, Intermittent, Less than 6 Hours Per Day (ICD-10-PCS; 2018-02-25)
PROC: 5A1D70Z Performance of Urinary Filtration, Intermittent, Less than 6 Hours Per Day (ICD-10-PCS; 2018-02-27)
PROC: 5A1D70Z Performance of Urinary Filtration, Intermittent, Less than 6 Hours Per Day (ICD-10-PCS; 2018-03-01)
PROC: 5A1D70Z Performance of Urinary Filtration, Intermittent, Less than 6 Hours Per Day (ICD-10-PCS; 2018-03-03)
PROC: 5A1D70Z Performance of Urinary Filtration, Intermittent, Less than 6 Hours Per Day (ICD-10-PCS; 2018-03-04)
DX: A41.9 Sepsis, unspecified organism (principal); N18.6 End stage renal disease; I13.2 Hypertensive heart and chronic kidney disease with heart failure and with stage 5 chronic kidney disease, or end stage renal disease; G93.41 Metabolic encephalopathy; N17.9 Acute kidney failure, unspecified; E87.2 Acidosis; Q61.3 Polycystic kidney, unspecified; E11.22 Type 2 diabetes mellitus with diabetic chronic kidney disease; E11.36 Type 2 diabetes mellitus with diabetic cataract; E83.42 Hypomagnesemia; E87.5 Hyperkalemia; E78.5 Hyperlipidemia, unspecified; G30.9 Alzheimer's disease, unspecified; F02.80 Dementia in other diseases classified elsewhere, unspecified severity, without behavioral disturbance, psychotic disturbance, mood disturbance, and anxiety; R29.6 Repeated falls; Z95.0 Presence of cardiac pacemaker; Z86.73 Personal history of transient ischemic attack (TIA), and cerebral infarction without residual deficits; Z82.49 Family history of ischemic heart disease and other diseases of the circulatory system; Z79.899 Other long term (current) drug therapy; R26.9 Unspecified abnormalities of gait and mobility; H91.90 Unspecified hearing loss, unspecified ear; D63.8 Anemia in other chronic diseases classified elsewhere; M19.90 Unspecified osteoarthritis, unspecified site; M81.0 Age-related osteoporosis without current pathological fracture; J44.9 Chronic obstructive pulmonary disease, unspecified; N40.0 Benign prostatic hyperplasia without lower urinary tract symptoms; I25.10 Atherosclerotic heart disease of native coronary artery without angina pectoris; Z87.442 Personal history of urinary calculi; R63.0 Anorexia; Z68.25 Body mass index [BMI] 25.0-25.9, adult; E66.01 Morbid (severe) obesity due to excess calories; I50.9 Heart failure, unspecified; Z98.890 Other specified postprocedural states
CPT/HCPCS: 36415; 70450-TC; 71045-TC; 71250-TC; 72074-TC; 72100-TC; 72125-TC; 74018; 76700-TC; 76856-TC; 80048-TC; 80053-TC; 80074; 80202-TC; 82247-TC; 82248-TC; 82378; 82570-TC; 82962-TC; 83540-TC; 83605-TC; 83735-TC; 84100-TC; 84132-TC; 84153-TC; 84154-TC; 84300-TC; 84443-TC; 84484-TC; 85025-TC; 85730-TC; 87040-TC; 87081-TC; 90935-TC; 92611-TC; 93307-TC; 93880-TC; 94762-TC; 94799-TC; 97116-TC; 97530-TC; A4216; A4606; A6402; C1750; C1751; C9113; J0456; J0610; J0690; J0696; J1644; J1815; J2543; J2704; J2916; J3370; J3475; J3490; J7030; J7040; J7050; J7060; Z7610

== ENCOUNTER 2018-03-14 20:01 | Inpatient (IN) | payer MEDICARE, MEDICAID ==
[~2018-03-14 20:01] MED LIST: ACET-868 PO; ACET650S11 RC; AMIN30LI4 PO; AMIO200T4 PO; AMLO5TAB7 PO; ASCO500T9 PO; ATOR20TA PO; BLOO-668 IN; CLON0.1T14 PO; CLON1PAT TD; DONE5TAB34 PO; HYDR-4076 PO; INSU100V11 SQ; MAGN400T26 PO; MECL-102 PO; METF-441 PO; MULT-447 PO; ONDA4TAB5 PO; PANT40TA2 PO; PANT40VI IV; POLY17PO4 PO; TAMS-12 PO; [UNRECOGNIZED DRUG - OTHER] PO
[2018-03-14] MEDS ORDERED: methylPREDNISolone SOD SUCC 125 MG/2ML VIAL ONE (20:29)
[2018-03-14] MEDS ORDERED: IPRATROPIUM NEB FS 0.5 MG/2.5 ML AMPUL.NEB NEB ONE ×2 (20:30→21:30)
[2018-03-14] MEDS ORDERED: methylPREDNISolone SOD SUCC 125 MG/2ML VIAL IV ONE (20:30)
[2018-03-14] MEDS ORDERED: ALBUTEROL FS 2.5 MG/3 ML VIAL.NEB NEB ONE ×3 (20:30→22:00)
[2018-03-14] MEDS ORDERED: IPRATROPIUM NEB FS 0.5 MG/2.5 ML AMPUL.NEB ONE ×2 (20:52→21:48)
[2018-03-14] MEDS ORDERED: ALBUTEROL FS 2.5 MG/3 ML VIAL.NEB ONE ×2 (20:52→21:48)
[2018-03-14] MEDS ORDERED: DEXTROSE 50%-WATER 50 ML DISP.SYRIN ONE (21:41)
[2018-03-14] MEDS ORDERED: INSULIN REGULAR, HUMAN 100 UNIT/ML 10 ML VIAL ONE (21:42)
[2018-03-14] MEDS ORDERED: CALCIUM CHLORIDE 1,000 MG/10 ML DISP.SYRIN ONE (21:44)
[2018-03-14] MEDS ORDERED: SODIUM BICARBONATE SYR 50 MEQ/50 ML DISP.SYRIN ONE (21:44)
[2018-03-14] MEDS ORDERED: SODIUM BICARBONATE SYR 50 MEQ/50 ML DISP.SYRIN IV ONE ×2 (22:00→23:30)
[2018-03-14] MEDS ORDERED: IV NS 0.9% 1,000 ML BAG IV ONE ×2 (22:00→23:30)
[2018-03-14] MEDS ORDERED: CALCIUM CHLORIDE 1,000 MG/10 ML DISP.SYRIN IV ONE (22:00)
[2018-03-14] MEDS ORDERED: INSULIN REGULAR, HUMAN 100 UNIT/ML 10 ML VIAL IV ONE (22:00)
[2018-03-14] MEDS ORDERED: DEXTROSE 50%-WATER 50 ML DISP.SYRIN IV ONE (22:00)
[2018-03-14] MEDS ORDERED: VANCOMYCIN 1 GM in IV D5W 250 ML IV ONE (22:30)
[2018-03-14] MEDS ORDERED: PIPERACILLIN /TAZOBACTAM 3.375 G in IV D5W 50 ML IV ONE (22:30)
[2018-03-14] MEDS ORDERED: PIPERACILLIN /TAZOBACTAM 3.375 G VIAL IV ONE ×2 (23:12→23:16)
[2018-03-14] MEDS ORDERED: VANCOMYCIN 1 GM VIAL ONE (23:12)
[2018-03-14] MEDS ORDERED: NOREPINEPHRINE 4 MG/4 ML AMPUL IV ONE (23:16)
[2018-03-14] MEDS ORDERED: VANCOMYCIN 1 GM in IV D5W 250 ML IV SCH (23:30)
[2018-03-14] MEDS ORDERED: IV D5W 500 ML IV PRN (23:30)
[2018-03-14] MEDS: NOREPINEPHRINE 16 MG in IV D5W 500 ML IV PRN (23:31)
[2018-03-14] MEDS: IV NS 0.9% 1,000 ML BAG IV PRN (23:35)
[2018-03-15] MEDS ORDERED: PROPOFOL 100 ML ONE (00:01)
[2018-03-15] MEDS: PROPOFOL 100 ML IV PRN ×3 (00:09→21:26)
[2018-03-15] MEDS ORDERED: SODIUM BICARBONATE SYR 50 MEQ/50 ML DISP.SYRIN IV ONE ×3 (01:00→08:37)
[2018-03-15] MEDS ORDERED: VANCOMYCIN 1 GM in IV NS 0.9% 250 ML IV ONE (01:00)
[2018-03-15] MEDS ORDERED: IV NS 0.9% 500 ML IV ONE (01:45)
[2018-03-15] MEDS ORDERED: IV NS 0.9% 250 ML IV PRN (02:00)
[2018-03-15] MEDS: BLOOD SUGAR DIAGNOSTIC 1 EACH STRIP IN SCH ×12 (02:52→23:51)
[2018-03-15] MEDS: PANTOPRAZOLE 40 MG VIAL IV SCH (02:53)
[2018-03-15] MEDS: INSULIN REGULAR, HUMAN 100 UNIT/ML 3 ML VIAL SQ PRN ×6 (02:55→13:45)
[2018-03-15] MEDS ORDERED: BLOOD SUGAR DIAGNOSTIC 1 EACH STRIP IN SCH ×2 (03:00→07:30)
[2018-03-15] MEDS ORDERED: PIPERACILLIN /TAZOBACTAM 2.25 G VIAL IV ONE (04:36)
[2018-03-15] MEDS: PIPERACILLIN /TAZOBACTAM 2.25 G in IV D5W 50 ML IV SCH ×3 (04:43→21:25)
[2018-03-15] MEDS: IV NS 0.9% 1,000 ML BAG IV PRN ×2 (05:51→06:11)
[2018-03-15] MEDS ORDERED: SODIUM BICARBONATE SYR 50 MEQ/50 ML DISP.SYRIN ONE (06:22)
[2018-03-15] MEDS: Sodium Bicarbonate 100 MEQ in IV D5/0.45 NACL 1,000 ML IV PRN ×2 (06:29→17:27)
[2018-03-15] MEDS ORDERED: IV NS 0.9% 1,000 ML BAG IV PRN (06:30)
[2018-03-15] MEDS ORDERED: FEE PK DOSING 1 MIN EA MC ONE (08:23)
[2018-03-15] MEDS ORDERED: ROCURONIUM BROMIDE 50 MG/5 ML IV ONE (08:29)
[2018-03-15] MEDS ORDERED: ETOMIDATE 2 MG/ML VIAL IV ONE (08:29)
[2018-03-15] MEDS ORDERED: VANCOMYCIN 500 MG in IV D5W 100 ML IV PRN (09:00)
[2018-03-15] MEDS ORDERED: DEXTROSE 50%-WATER 50 ML DISP.SYRIN IV PRN (09:30)
[2018-03-15] MEDS: NOREPINEPHRINE 16 MG in IV D5W 500 ML IV PRN (11:19)
[2018-03-15] MEDS: DEXTROSE 50%-WATER 50 ML DISP.SYRIN IV PRN (20:03)
[2018-03-15] MEDS: INSULIN GLARGINE, 100 UNIT/ML CARTRIDGE SQ SCH (23:00)
[2018-03-16] MEDS: BLOOD SUGAR DIAGNOSTIC 1 EACH STRIP IN SCH ×6 (00:56→21:11)
[2018-03-16] MEDS ORDERED: RENAL NOVASOURCE 1,000 ML BOTTLE GT PRN (01:00)
[2018-03-16] MEDS: PANTOPRAZOLE 40 MG VIAL IV SCH (03:08)
[2018-03-16] MEDS: Sodium Bicarbonate 100 MEQ in IV D5/0.45 NACL 1,000 ML IV PRN (05:01)
[2018-03-16] MEDS: PROPOFOL 100 ML IV PRN ×4 (05:02→23:17)
[2018-03-16] MEDS: PIPERACILLIN /TAZOBACTAM 2.25 G in IV D5W 50 ML IV SCH ×3 (05:02→20:52)
[2018-03-16] MEDS: INSULIN REGULAR, HUMAN 100 UNIT/ML 3 ML VIAL SQ PRN ×2 (09:11→21:13)
[2018-03-16] MEDS: NOREPINEPHRINE 16 MG in IV D5W 500 ML IV PRN (09:12)
[2018-03-16] MEDS: IV NS 0.9% 1,000 ML IV PRN (10:52)
[2018-03-16] MEDS ORDERED: NEPRO 1,000 ML BOTTLE GT PRN (12:30)
[2018-03-16] MEDS: DEXTROSE 50%-WATER 50 ML DISP.SYRIN IV PRN (13:33)
[2018-03-16] MEDS: SOD FERRIC GLUC 125 MG in IV NS 0.9% 100 ML IV SCH (15:50)
[2018-03-16] MEDS ORDERED: IV NS 0.9% 500 ML IV ONE (16:00)
[2018-03-16] MEDS ORDERED: VANCOMYCIN 1 GM in IV D5W 250 ML IV ONE (16:00)
[2018-03-16] MEDS: INSULIN GLARGINE, 100 UNIT/ML CARTRIDGE SQ SCH (22:48)
[2018-03-17] MEDS: BLOOD SUGAR DIAGNOSTIC 1 EACH STRIP IN SCH ×6 (02:05→20:14)
[2018-03-17] MEDS: PANTOPRAZOLE 40 MG VIAL IV SCH (02:08)
[2018-03-17] MEDS: IV NS 0.9% 1,000 ML IV PRN ×2 (03:20→22:05)
[2018-03-17] MEDS: PROPOFOL 100 ML IV PRN (03:38)
[2018-03-17] MEDS ORDERED: VANCOMYCIN 500 MG in IV D5W 100 ML IV PRN (06:00)
[2018-03-17] MEDS: PIPERACILLIN /TAZOBACTAM 2.25 G in IV D5W 50 ML IV SCH ×3 (06:01→20:14)
[2018-03-17] MEDS ORDERED: POTASSIUM CHLORIDE 20 MEQ POWDER PACKET GT ONE (09:00)
[2018-03-17] MEDS ORDERED: POTASSIUM CHLORIDE 20 MEQ POWDER PACKET GT SCH (09:00)
[2018-03-17] MEDS: CYANOCOBALAMIN 1,000 MCG/ML VIAL IM SCH (09:20)
[2018-03-17] MEDS: FOLIC ACID 1 MG TABLET GT SCH (09:20)
[2018-03-17] MEDS: PROSOURCE / PROSTAT (PYXIS) 30 ML UDC GT SCH ×2 (09:21→17:00)
[2018-03-17] MEDS: Magnesium 1GM/D5W 100ML PREMIX 100 ML IV SCH ×2 (09:21→10:27)
[2018-03-17] MEDS: HEPARIN SODIUM, PORCINE 5000 UNITS/1 ML VIAL SQ SCH ×2 (09:23→20:15)
[2018-03-17] MEDS ORDERED: NEUTRA PHOS 1 POWD.PACKET PO ONE (09:30)
[2018-03-17] MEDS ORDERED: DC PROPOFOL WHEN EXTUBATED XX PRN (10:00)
[2018-03-17] MEDS: SOD FERRIC GLUC 125 MG in IV NS 0.9% 100 ML IV SCH (15:17)
[2018-03-17] MEDS: DEXTROSE 50%-WATER 50 ML DISP.SYRIN IV PRN (20:06)
[2018-03-17] MEDS: INSULIN GLARGINE, 100 UNIT/ML CARTRIDGE SQ SCH (22:00)
[2018-03-18] MEDS: BLOOD SUGAR DIAGNOSTIC 1 EACH STRIP IN SCH ×6 (01:33→21:30)
[2018-03-18] MEDS: PANTOPRAZOLE 40 MG VIAL IV SCH (01:33)
[2018-03-18] MEDS ORDERED: CEFEPIME 1 GM in IV D5W 50 ML IV SCH (05:00)
[2018-03-18] MEDS ORDERED: CEFEPIME 1 GM VIAL ONE (06:09)
[2018-03-18] MEDS: FOLIC ACID 1 MG TABLET GT SCH (09:00)
[2018-03-18] MEDS: PROSOURCE / PROSTAT (PYXIS) 30 ML UDC GT SCH ×2 (09:00→17:00)
[2018-03-18] MEDS: Magnesium 1GM/D5W 100ML PREMIX 100 ML IV SCH ×2 (10:00→11:12)
[2018-03-18] MEDS: CYANOCOBALAMIN 1,000 MCG/ML VIAL IM SCH (10:01)
[2018-03-18] MEDS: HEPARIN SODIUM, PORCINE 5000 UNITS/1 ML VIAL SQ SCH ×2 (10:02→21:30)
[2018-03-18] MEDS ORDERED: POTASSIUM CHLORIDE 20 MEQ TAB.PRT.SR PO ONE (11:00)
[2018-03-18] MEDS ORDERED: IPRATROPIUM NEB FS 0.5 MG/2.5 ML AMPUL.NEB NEB PRN (11:30)
[2018-03-18] MEDS ORDERED: POTASSIUM CL. PREMIX PERIPHER. 50 ML IV ONE (12:00)
[2018-03-18] MEDS: Z GUARD REMEDY 4 OZ OINT TP PRN (12:28)
[2018-03-18] MEDS: INSULIN REGULAR, HUMAN 100 UNIT/ML 3 ML VIAL SQ PRN (12:29)
[2018-03-18] MEDS: methylPREDNISolone SOD SUCC 40 MG/ML VIAL IV SCH ×2 (14:55→17:02)
[2018-03-18] MEDS: ALBUTEROL FS 2.5 MG/3 ML VIAL.NEB NEB SCH ×2 (15:04→22:56)
[2018-03-18] MEDS: IPRATROPIUM NEB FS 0.5 MG/2.5 ML AMPUL.NEB NEB SCH ×3 (15:04→22:56)
[2018-03-18] MEDS: SOD FERRIC GLUC 125 MG in IV NS 0.9% 100 ML IV SCH (15:50)
[2018-03-18] MEDS: POLYVINYL ALCOHOL 15 ML BOTTLE EACHEYE PRN (17:25)
[2018-03-18] MEDS: INSULIN GLARGINE, 100 UNIT/ML CARTRIDGE SQ SCH (22:14)
[2018-03-19] MEDS: BLOOD SUGAR DIAGNOSTIC 1 EACH STRIP IN SCH ×6 (00:24→21:45)
[2018-03-19] MEDS: INSULIN REGULAR, HUMAN 100 UNIT/ML 3 ML VIAL SQ PRN ×4 (00:29→21:44)
[2018-03-19] MEDS: PANTOPRAZOLE 40 MG VIAL IV SCH (02:38)
[2018-03-19] MEDS: CEFEPIME 1 GM in IV D5W 50 ML IV SCH (05:52)
[2018-03-19] MEDS: FOLIC ACID 1 MG TABLET GT SCH (08:06)
[2018-03-19] MEDS: PROSOURCE / PROSTAT (PYXIS) 30 ML UDC GT SCH ×2 (08:06→17:00)
[2018-03-19] MEDS: methylPREDNISolone SOD SUCC 40 MG/ML VIAL IV SCH (08:36)
[2018-03-19] MEDS: HEPARIN SODIUM, PORCINE 5000 UNITS/1 ML VIAL SQ SCH ×2 (08:36→21:43)
[2018-03-19] MEDS: ALBUTEROL FS 2.5 MG/3 ML VIAL.NEB NEB SCH ×3 (08:40→23:15)
[2018-03-19] MEDS: IPRATROPIUM NEB FS 0.5 MG/2.5 ML AMPUL.NEB NEB SCH ×3 (08:40→23:15)
[2018-03-19] MEDS: POLYVINYL ALCOHOL 15 ML BOTTLE EACHEYE PRN (08:44)
[2018-03-19] MEDS: Z GUARD REMEDY 4 OZ OINT TP PRN (08:45)
[2018-03-19] MEDS: CYANOCOBALAMIN 1,000 MCG/ML VIAL IM SCH (11:40)
[2018-03-19] MEDS: SOD FERRIC GLUC 125 MG in IV NS 0.9% 100 ML IV SCH (14:50)
[2018-03-19] MEDS ORDERED: CLONIDINE HCL 0.2MG/24H PTWK 1 EA PATCH TD SCH (19:30)
[2018-03-19] MEDS ORDERED: AMLODIPINE BESYLATE 5 MG TABLET PO PRN (19:30)
[2018-03-19] MEDS: INSULIN GLARGINE, 100 UNIT/ML CARTRIDGE SQ SCH (21:43)
[2018-03-20] MEDS: BLOOD SUGAR DIAGNOSTIC 1 EACH STRIP IN SCH ×6 (00:35→21:16)
[2018-03-20] MEDS: INSULIN REGULAR, HUMAN 100 UNIT/ML 3 ML VIAL SQ PRN ×3 (00:35→21:37)
[2018-03-20] MEDS: PANTOPRAZOLE 40 MG VIAL IV SCH (02:56)
[2018-03-20] MEDS: DEXTROSE 50%-WATER 50 ML DISP.SYRIN IV PRN (05:16)
[2018-03-20] MEDS: CEFEPIME 1 GM in IV D5W 50 ML IV SCH (05:59)
[2018-03-20] MEDS: ALBUTEROL FS 2.5 MG/3 ML VIAL.NEB NEB SCH ×3 (07:35→22:47)
[2018-03-20] MEDS: FOLIC ACID 1 MG TABLET GT SCH (08:18)
[2018-03-20] MEDS: POLYVINYL ALCOHOL 15 ML BOTTLE EACHEYE PRN (08:19)
[2018-03-20] MEDS: PROSOURCE / PROSTAT (PYXIS) 30 ML UDC GT SCH ×2 (08:20→17:51)
[2018-03-20] MEDS: CYANOCOBALAMIN 1,000 MCG/ML VIAL IM SCH (08:20)
[2018-03-20] MEDS: Z GUARD REMEDY 4 OZ OINT TP PRN (08:31)
[2018-03-20] MEDS: HEPARIN SODIUM, PORCINE 5000 UNITS/1 ML VIAL SQ SCH ×2 (08:38→21:30)
[2018-03-20] MEDS ORDERED: methylPREDNISolone SOD SUCC 40 MG/ML VIAL IV SCH (09:00)
[2018-03-20] MEDS: IPRATROPIUM NEB FS 0.5 MG/2.5 ML AMPUL.NEB NEB SCH ×3 (09:52→22:46)
[2018-03-20] MEDS: Potassium Phosphate meq 11 MEQ in IV D5W 100 ML IV SCH ×2 (12:37→17:08)
[2018-03-20] MEDS ORDERED: FEE PK DOSING 1 MIN EA MC ONE (13:54)
[2018-03-20] MEDS ORDERED: GENTAMICIN 100 MG in IV D5W 100 ML IV PRN ×2 (14:00→21:00)
[2018-03-20] MEDS ORDERED: GENTAMICIN 140 MG in IV D5W 100 ML IV ONE (14:00)
[2018-03-20] MEDS ORDERED: VANCOMYCIN 1 GM in IV D5W 250 ML IV ONE (15:00)
[2018-03-20] MEDS: SOD FERRIC GLUC 125 MG in IV NS 0.9% 100 ML IV SCH (15:46)
[2018-03-20] MEDS ORDERED: VANCOMYCIN 500 MG in IV D5W 100 ML IV PRN (21:00)
[2018-03-20] MEDS ORDERED: GENTAMICIN 80 MG/2 ML VIAL ONE (21:14)
[2018-03-20] MEDS: INSULIN GLARGINE, 100 UNIT/ML CARTRIDGE SQ SCH (21:38)
[2018-03-21] MEDS: BLOOD SUGAR DIAGNOSTIC 1 EACH STRIP IN SCH ×6 (01:21→21:10)
[2018-03-21] MEDS: INSULIN REGULAR, HUMAN 100 UNIT/ML 3 ML VIAL SQ PRN ×5 (01:26→17:50)
[2018-03-21] MEDS: PANTOPRAZOLE 40 MG VIAL IV SCH (03:21)
[2018-03-21] MEDS: hydrALAZINE HCL IV 20 MG VIAL IV PRN (04:00)
[2018-03-21] MEDS: CEFEPIME 1 GM in IV D5W 50 ML IV SCH (05:18)
[2018-03-21] MEDS: IPRATROPIUM NEB FS 0.5 MG/2.5 ML AMPUL.NEB NEB SCH ×3 (07:46→23:26)
[2018-03-21] MEDS: ALBUTEROL FS 2.5 MG/3 ML VIAL.NEB NEB SCH ×3 (07:46→23:26)
[2018-03-21] MEDS: FOLIC ACID 1 MG TABLET GT SCH (08:17)
[2018-03-21] MEDS: HEPARIN SODIUM, PORCINE 5000 UNITS/1 ML VIAL SQ SCH ×2 (08:18→21:12)
[2018-03-21] MEDS: PROSOURCE / PROSTAT (PYXIS) 30 ML UDC GT SCH ×2 (08:19→16:08)
[2018-03-21] MEDS ORDERED: DEXTROSE 50%-WATER 50 ML DISP.SYRIN IV PRN (09:00)
[2018-03-21] MEDS ORDERED: GENTAMICIN 140 MG in IV D5W 100 ML IV ONE (12:00)
[2018-03-21] MEDS: CYANOCOBALAMIN 1,000 MCG/ML VIAL IM SCH (12:09)
[2018-03-21] MEDS ORDERED: VANCOMYCIN 1 GM in IV D5W 250 ML IV ONE (17:00)
[2018-03-21] MEDS: AMLODIPINE BESYLATE 5 MG TABLET PO SCH (21:11)
[2018-03-21] MEDS: INSULIN GLARGINE, 100 UNIT/ML CARTRIDGE SQ SCH (21:31)
[2018-03-22] MEDS: PANTOPRAZOLE 40 MG VIAL IV SCH (02:07)
[2018-03-22] MEDS: IPRATROPIUM NEB FS 0.5 MG/2.5 ML AMPUL.NEB NEB SCH ×3 (07:58→23:30)
[2018-03-22] MEDS: ALBUTEROL FS 2.5 MG/3 ML VIAL.NEB NEB SCH ×3 (07:58→23:30)
[2018-03-22] MEDS: PROSOURCE / PROSTAT (PYXIS) 30 ML UDC GT SCH ×2 (08:02→16:49)
[2018-03-22] MEDS: BLOOD SUGAR DIAGNOSTIC 1 EACH STRIP IN SCH ×4 (08:03→21:19)
[2018-03-22] MEDS: FOLIC ACID 1 MG TABLET GT SCH (09:52)
[2018-03-22] MEDS: AMLODIPINE BESYLATE 5 MG TABLET PO SCH ×2 (09:52→21:00)
[2018-03-22] MEDS: HEPARIN SODIUM, PORCINE 5000 UNITS/1 ML VIAL SQ SCH ×2 (09:53→21:20)
[2018-03-22] MEDS: CYANOCOBALAMIN 1,000 MCG/ML VIAL IM SCH (10:36)
[2018-03-22] MEDS: INSULIN REGULAR, HUMAN 100 UNIT/ML 3 ML VIAL SQ PRN (16:50)
[2018-03-22] MEDS: INSULIN GLARGINE, 100 UNIT/ML CARTRIDGE SQ SCH (21:23)
[2018-03-23] MEDS: PANTOPRAZOLE 40 MG VIAL IV SCH (02:16)
[2018-03-23] MEDS: hydrALAZINE HCL IV 20 MG VIAL IV PRN (03:38)
[2018-03-23] MEDS: BLOOD SUGAR DIAGNOSTIC 1 EACH STRIP IN SCH ×2 (08:18→11:56)
[2018-03-23] MEDS: CYANOCOBALAMIN 1,000 MCG/ML VIAL IM SCH (08:19)
[2018-03-23] MEDS: AMLODIPINE BESYLATE 5 MG TABLET PO SCH (08:19)
[2018-03-23] MEDS: FOLIC ACID 1 MG TABLET GT SCH (08:19)
[2018-03-23] MEDS: HEPARIN SODIUM, PORCINE 5000 UNITS/1 ML VIAL SQ SCH (08:31)
[2018-03-23] MEDS ORDERED: AMLO5TAB7 PO (08:47)
[2018-03-23] MEDS ORDERED: HYDR20VI4 IV (08:47)
[2018-03-23] MEDS ORDERED: INSU100I30 SQ (08:47)
[2018-03-23] MEDS ORDERED: PANT40VI PO (08:47)
[2018-03-23] MEDS ORDERED: Blood Sugar Diagnostic IN (08:47)
[2018-03-23] MEDS ORDERED: INSU100V28 SQ (08:47)
[2018-03-23] MEDS ORDERED: CLON1PAT2 TD (08:47)
[2018-03-23] MEDS ORDERED: Polyvinyl Alcohol EACHEYE (08:47)
[2018-03-23] MEDS: PROSOURCE / PROSTAT (PYXIS) 30 ML UDC GT SCH (09:00)
[2018-03-23] MEDS: ALBUTEROL FS 2.5 MG/3 ML VIAL.NEB NEB SCH ×2 (09:15→14:33)
[2018-03-23] MEDS: IPRATROPIUM NEB FS 0.5 MG/2.5 ML AMPUL.NEB NEB SCH ×2 (09:15→14:33)
[2018-03-23] MEDS: INSULIN REGULAR, HUMAN 100 UNIT/ML 3 ML VIAL SQ PRN (11:57)
[2018-05-19] MEDS ORDERED: MEGE40TA PO (19:28)
[2018-05-19] MEDS ORDERED: ACET650S11 RC (19:28)
[2018-05-19] MEDS ORDERED: PANT40VI IV (19:28)
[2018-05-19] MEDS ORDERED: METO25TA20 PO (19:28)
[2018-05-19] MEDS ORDERED: AMLO5TAB7 GT (19:28)
[2018-05-19] MEDS ORDERED: DOXA4TAB19 PO (19:28)
[2018-05-19] MEDS ORDERED: ALLA266C2 TP (19:28)
[2018-05-19] MEDS ORDERED: METO10TA3 PO (19:28)
[2018-05-19] MEDS ORDERED: HYDR25TA4 PO (19:28)
[2018-05-19] MEDS ORDERED: IPRA0.2S9 NEB (19:28)
[2018-05-19] MEDS ORDERED: ONDA4TAB11 PO (19:28)
[2018-05-19] MEDS ORDERED: CLON0.1T14 PO (19:28)
[2018-05-19] MEDS ORDERED: ALBUT2 NEB (19:28)
== END 2018-03-23 15:50 | DRG 871 ==
DX: A41.9 Sepsis, unspecified organism (principal); J96.02 Acute respiratory failure with hypercapnia; J69.0 Pneumonitis due to inhalation of food and vomit; J96.01 Acute respiratory failure with hypoxia; R65.21 Severe sepsis with septic shock; E87.4 Mixed disorder of acid-base balance; I13.2 Hypertensive heart and chronic kidney disease with heart failure and with stage 5 chronic kidney disease, or end stage renal disease; G92 Toxic encephalopathy; N18.6 End stage renal disease; Q61.3 Polycystic kidney, unspecified; E87.6 Hypokalemia; E83.42 Hypomagnesemia; E87.5 Hyperkalemia; E11.22 Type 2 diabetes mellitus with diabetic chronic kidney disease; E11.42 Type 2 diabetes mellitus with diabetic polyneuropathy; E11.649 Type 2 diabetes mellitus with hypoglycemia without coma; D63.8 Anemia in other chronic diseases classified elsewhere; Z79.4 Long term (current) use of insulin; Z79.84 Long term (current) use of oral hypoglycemic drugs; Z79.899 Other long term (current) drug therapy; Z86.73 Personal history of transient ischemic attack (TIA), and cerebral infarction without residual deficits; H26.9 Unspecified cataract; H10.9 Unspecified conjunctivitis; Z99.2 Dependence on renal dialysis; Z87.891 Personal history of nicotine dependence; Z87.442 Personal history of urinary calculi; Z87.01 Personal history of pneumonia (recurrent); Z82.49 Family history of ischemic heart disease and other diseases of the circulatory system; G89.29 Other chronic pain; E78.5 Hyperlipidemia, unspecified; I25.10 Atherosclerotic heart disease of native coronary artery without angina pectoris; R29.6 Repeated falls; I45.10 Unspecified right bundle-branch block; H91.90 Unspecified hearing loss, unspecified ear; E53.8 Deficiency of other specified B group vitamins; I50.9 Heart failure, unspecified; F07.81 Postconcussional syndrome; K21.9 Gastro-esophageal reflux disease without esophagitis; M19.90 Unspecified osteoarthritis, unspecified site; M81.0 Age-related osteoporosis without current pathological fracture; N40.0 Benign prostatic hyperplasia without lower urinary tract symptoms

== ENCOUNTER 2018-05-09 15:18 | Inpatient (IN) | payer MEDICARE, OTHER ==
[~2018-05-09] VITALS: Ht 167.6 cm; Wt 63.5 kg
[2018-05-09] VITALS (24 sets, daily range): BP systolic 71–106; BP diastolic 27–51
[~2018-05-09 15:18] MED LIST changes: +AMIO200T2 PO; -AMIO200T4 PO; +AMLO5TAB2 PO; -AMLO5TAB7 PO; +Blood Sugar Diagnostic IN; +CLON1PAT2 TD; +HYDR20VI4 IV; +INSU100I30 SQ; +INSU100V28 SQ; -METF-441 PO; +METF850T2 PO; +PANT40VI PO; +Polyvinyl Alcohol EACHEYE
--- NOTE | 2018-05-09 15:24 | NUR ---
BIB RA C/O EPISODE OF LOW BP (85 SBP) AT HOME. PT IS DIVEHI SPEAKING ONLY. PERMACATH NOTED TO RT CHEST WALL. PT GOWNED AND PLACED ON CONT CARDIAC AND POX MONITORING. ALL NEEDS ARE ATTENDED, KEPT COMFORTABLE. PENDING ER MD QUEVEDO
[2018-05-09] MEDS ORDERED: IV NS 0.9% 1,000 ML BAG IV ONE ×2 (15:30→17:00)
[2018-05-09 15:45] LABS: BASOPHILS # (AUTO) 0.4 /CMM (0.0-0.2); BASOPHILS % (AUTO) 2.6 % (0.0-2.0); EOSINOPHILS % (AUTO) 0.1 % (0.0-6.0); HEMATOCRIT 45 % (39-51); HEMOGLOBIN 15.1 g/dL (13.5-17.5); LYMPHOCYTES # (AUTO) 1.2 /CMM (0.8-4.8); LYMPHOCYTES % (AUTO) 7.4 % (20.0-44.0); MEAN CORPUSCULAR HEMOGLOBIN 30 PG (26.0-33.0); MEAN CORPUSCULAR HGB CONC 33 g/dl (31.0-36.0); MEAN CORPUSCULAR VOLUME 90 fL (80-96); MONOCYTES # (AUTO) 0.5 /CMM (0.1-1.30); MONOCYTES % (AUTO) 3.2 % (2.0-12.0); NEUTROPHILS # (AUTO) 13.6 /CMM (1.8-8.9); NEUTROPHILS % (AUTO) 86.7 % (43.0-81.0); PLATELET COUNT (AUTO) 226 /CMM (150-450); RDW COEFFICIENT OF VARIATION 17.9 (11.5-15.0); RED BLOOD CELL COUNT(AUTO) 5.02 MIL/uL (4.5-6.0); WHITE BLOOD COUNT (AUTO) 15.8 K/uL (4.3-11.0)
[2018-05-09 15:59] LABS: INR 1.21 (0.85-1.15)
--- NOTE | 2018-05-09 16:00 | NUR ---
CALLED NURSE SUP FOR ALESHIA BED
[2018-05-09 16:01] LABS: ALANINE AMINOTRANSFERASE 14 U/L (12-78); ALBUMIN 2.9 g/dL (3.4-5.0); ALKALINE PHOSPHATASE 84 U/L (46-116); ASPARTATE AMINOTRANSFERASE 17 U/L (15-37); BILIRUBIN,DIRECT 0.1 mg/dL (0.0-0.2); BILIRUBIN,TOTAL 0.4 mg/dL (0.2-1.0); CALCIUM, SERUM 10.4 mg/dL (8.5-10.1); CHLORIDE 93 mmol/L (98-107); CREATININE 6.1 mg/dL (0.6-1.3); GLUCOSE 119 mg/dL (74-106); POTASSIUM 4.7 mmol/L (3.5-5.1); SODIUM SERUM 134 mmol/L (136-145); TOTAL PROTEIN, SERUM 7.8 g/dL (6.4-8.2); UREA NITROGEN, BLOOD 24 mg/dL (7-18)
[2018-05-09 16:03] LABS: TROPONIN I 0.023 ng/mL (0.00-0.056)
[2018-05-09 16:12] LABS: APPEARANCE,URINE Turbid (CLEAR); BILIRUBIN,URINE Negative (NEGATIVE); BLOOD, URINE Large Ery/uL (NEGATIVE); COLOR,URINE Yellow (YELLOW); KETONES,URINE 15 (NEGATIVE); LEUKOCYTE ESTERASE ,URINE Large (NEGATIVE); NITRITE, URINE Negative (NEGATIVE); PROTEIN,URINE >=300 mg/dl (NEGATIVE); UGLUCOSE Negative (NEGATIVE); UROBILINOGEN,URINE 0.2 EU/dL (0.2)
[2018-05-09] MEDS ORDERED: METO25TA20 PO (16:14)
[2018-05-09] MEDS ORDERED: LOSA100T15 PO (16:14)
[2018-05-09] MEDS ORDERED: DOXE75CA4 PO (16:14)
[2018-05-09] MEDS ORDERED: INSU100V11 SQ (16:14)
[2018-05-09] MEDS ORDERED: ESOM40CA PO (16:14)
[2018-05-09] MEDS ORDERED: DOXA4TAB2 PO (16:14)
[2018-05-09] MEDS ORDERED: UMEC1BLS IH (16:14)
[2018-05-09] MEDS ORDERED: GLIM4TAB2 PO (16:14)
[2018-05-09] MEDS ORDERED: CLON0.1T PO (16:14)
[2018-05-09] MEDS ORDERED: BLOO-668 IN (16:14)
[2018-05-09] MEDS ORDERED: SIMV10TA6 PO (16:14)
[2018-05-09] MEDS ORDERED: MEGE40TA PO (16:14)
[2018-05-09] MEDS ORDERED: HYDR25TA4 PO (16:14)
[2018-05-09] MEDS ORDERED: NIFE60TA69 PO (16:14)
--- NOTE | 2018-05-09 16:17 | NUR ---
TRANSFER TO BED 119-1
--- NOTE | 2018-05-09 16:19 | NUR ---
INFORMED NURSE SUP THAT PATIENT IS UPGRADED TO ICU BED
[2018-05-09 16:20] LABS: BACTERIA,URINE Few /HPF (None Seen); SQUAMOUS EPITHELIAL CELL,UR Few /HPF (None Seen); WBC,URINE TOO NUMEROUS TO COUN /HPF (0-3)
--- NOTE | 2018-05-09 16:28 | NUR ---
Emi wallace in [facility] - 05/09/18 at 1629 by KARLI CO2- 5
--- NOTE | 2018-05-09 16:29 | NUR ---
CO2- 5
--- NOTE | 2018-05-09 16:37 | NUR ---
PAGED DR DOLAN
[2018-05-09] MEDS ORDERED: VANCOMYCIN 1 GM in IV D5W 250 ML IV ONE (17:00)
[2018-05-09] MEDS ORDERED: PIPERACILLIN /TAZOBACTAM 3.375 G in IV D5W 50 ML IV ONE (17:00)
--- NOTE | 2018-05-09 17:25 | NUR ---
REPORT GIVEN TO PORTIA CH
--- NOTE | 2018-05-09 17:40 | NUR ---
PT TRANSFERRED TO FLOOR VIA [facility] PROTOCOL
--- NOTE | 2018-05-09 18:10 | NUR ---
ASSESSMENT MANAGER RECEIVED PATIENT FORM ED ON A GURNEY. AGONAL BREATHING NOTED. 2L NC AT THIS TIME. AFEBRILE. STABLE VITAL SINGS. TURNED AND REPOSITIONED FOR COMFORT AND WOUND PREVENTION. WILL CONTINUE TO MONITOR AND PROVIDE CARE.
[2018-05-09 18:23] LABS: ABG BASE EXCESS -31.6 mmol/L; ABG OXYGEN SATURATION 97.1 % (92.0-98.5); ABG PCO2 13.2 mmHg (35.0-45.0); ABG PH 6.793 (7.350-7.450); ABG PO2 159.5 mmHg (75.0-100.0); AaDO2 53.2 mmHg; COHb 0.3 % (0.5-1.5); MetHb 0.9 % (0.0-1.5); O2Hb 95.9 % (94.0-97.0); SITE, ABG Right Radial; VENT MODE, BG 3L/MIN N/C
--- NOTE | 2018-05-09 18:59 | NUR ---
PT ORALLY INTUBATED WITH 7.5 ETT @ 23 CM AT THE LIP LINE ON [facility] VENT WITH NOTED SETTINGS, AC 24,500, PEEP O ,100%. PT IS TOLERATING VENT SETTINGS. VENT ALARMS SET AND AUDIBLE, VENT PLUGGED INTO RED OUTLET, AMBU BAG @ BEDSIDE. SUCTIONED SMALL AMOUNT OF WHITE THICK SECRETIONS. NO RESPIRATORY DISTRESS NOTED AT THIS TIME. WILL CONTINUE TO MONITOR.
--- NOTE | 2018-05-09 18:59 | NUR ---
COMMUNITY RESOURCE CONSULTANT RN SPOKE TO PRIMARY MD AND ER MD REGARDING PATIENT'S CODE STATUS. PRIMARY MD AND ER MD SPOKE TO FAMILY REGARDING PATIENT'S CODE STATUS. FULL CODE STATUS ESTABLISHED. ORALLY INTUBATED PER MD ORDER AT 1859H DUE TO ABNORMAL ABG. FAMILY AWARE. REPORT GIVEN TO RECEIVING RN ON SAFE CONDITIONS FOR CONTINUITY OF CARE.
[2018-05-09] MEDS ORDERED: PROPOFOL 100 ML IV PRN (19:00)
[2018-05-09] MEDS ORDERED: ETOMIDATE 2 MG/ML VIAL IV ONE (19:08)
[2018-05-09] MEDS ORDERED: SUCCINYLCHOLINE CHLORIDE 20 MG/ML VIAL IV ONE (19:08)
[2018-05-09] MEDS ORDERED: FEE PK DOSING 1 MIN EA MC ONE (19:18)
[2018-05-09] MEDS ORDERED: VANCOMYCIN 500 MG in IV D5W 100 ML IV PRN (19:30)
--- NOTE | 2018-05-09 19:48 | NUR ---
Dr rajan called and notified of pt low bp, new orders received, dr rajan ordered a central line. I called nursing building services supervisor for a picc line and called ER for a central line, awaiting response, will follow up
[2018-05-09] MEDS ORDERED: ENOXAPARIN SODIUM 40 MG/0.4 ML DISP.SYRIN SQ SCH (20:00)
[2018-05-09] MEDS ORDERED: SODIUM BICARBONATE SYR 50 MEQ/50 ML DISP.SYRIN IV ONE ×4 (20:00→21:30)
[2018-05-09] MEDS ORDERED: ACETAMINOPHEN 650 MG/SUPP.RECT RC PRN (20:00)
[2018-05-09] MEDS ORDERED: IV NS 0.9% 1,000 ML IV ONE (20:00)
[2018-05-09] MEDS ORDERED: IV NS 0.9% 250 ML IV ONE (20:00)
[2018-05-09] MEDS: PANTOPRAZOLE 40 MG VIAL IV SCH (20:03)
[2018-05-09 20:25] LABS: ABG OXYGEN SATURATION 98.7 % (92.0-98.5); ABG PCO2 16.2 mmHg (35.0-45.0); ABG PH 6.875 (7.350-7.450); ABG PO2 376.5 mmHg (75.0-100.0); AaDO2 320.3 mmHg; COHb 0.3 % (0.5-1.5); MetHb 1.1 % (0.0-1.5); O2Hb 97.3 % (94.0-97.0); PEEP,BG 0 cm H2O; SITE, ABG Right Radial; VT, ABG 500 mL
[2018-05-09] MEDS: Z GUARD REMEDY 2 OZ OINT TP SCH (20:43)
[2018-05-09] MEDS: NOREPINEPHRINE 16 MG in IV D5W 500 ML IV PRN (20:51)
[2018-05-09] MEDS ORDERED: IV NS 0.9% 1,000 ML IV PRN (21:00)
--- NOTE | 2018-05-09 21:14 | NUR ---
picc line nurse at bedside to insert picc line
[2018-05-09] MEDS ORDERED: SODIUM BICARBONATE SYR 50 MEQ/50 ML DISP.SYRIN ONE (21:32)
--- NOTE | 2018-05-09 22:35 | NUR ---
picc line nurse unable to place picc line after [address] kaur notified, he said to get ER doctor to place central line.
--- NOTE | 2018-05-09 23:00 | NUR ---
nursing shipping track supervisor Petra notified about no picc line and need for central line, ER doctor notified about pts need for central line, but ER doctor is very busy with critical pts, will see if able to place central line later. will follow up
[2018-05-09] MEDS: PIPERACILLIN /TAZOBACTAM 2.25 G in IV D5W 50 ML IV SCH (23:34)
[2018-05-09] MEDS: Sodium Bicarbonate 150 MEQ in IV D5W 1,000 ML IV PRN (23:38)
[2018-05-10] VITALS (102 sets, daily range): BP systolic 76–176; BP diastolic 31–131
[2018-05-10] MEDS ORDERED: IPRATROPIUM NEB FS 0.5 MG/2.5 ML AMPUL.NEB NEB PRN ×2 (01:00→01:22)
[2018-05-10] MEDS ORDERED: ALBUTEROL FS 2.5 MG/3 ML VIAL.NEB NEB PRN (01:00)
[2018-05-10] MEDS: PIPERACILLIN /TAZOBACTAM 2.25 G in IV D5W 50 ML IV SCH ×3 (05:38→17:16)
[2018-05-10 05:57] LABS: ALANINE AMINOTRANSFERASE 16 U/L (12-78); ALBUMIN 2.1 g/dL (3.4-5.0); ALKALINE PHOSPHATASE 92 U/L (46-116); ASPARTATE AMINOTRANSFERASE 23 U/L (15-37); BILIRUBIN,TOTAL 0.4 mg/dL (0.2-1.0); CALCIUM, SERUM 7.9 mg/dL (8.5-10.1); CHLORIDE 98 mmol/L (98-107); CREATININE 5.7 mg/dL (0.6-1.3); MAGNESIUM 1.9 mg/dL (1.8-2.4); POTASSIUM 4.5 mmol/L (3.5-5.1); SODIUM SERUM 141 mmol/L (136-145); TOTAL PROTEIN, SERUM 5.6 g/dL (6.4-8.2); UREA NITROGEN, BLOOD 30 mg/dL (7-18)
[2018-05-10 05:58] LABS: VANCOMYCIN,TROUGH 11 ug/ml (12-20)
[2018-05-10 06:26] LABS: CARBON DIOXIDE 6 mmol/L (21-32)
[2018-05-10 06:27] LABS: GLUCOSE 368 mg/dL (74-106)
[2018-05-10 06:59] LABS: IRON, SERUM 55 ug/dl (50-175); THYROID STIMULATING HORMONE 1.548 uIU/mL (0.358-3.74)
[2018-05-10] MEDS ORDERED: INSULIN REGULAR, HUMAN 100 UNIT/ML 3 ML VIAL SQ ONE (07:00)
[2018-05-10 07:28] LABS: BASOPHILS % (AUTO) 0.1 % (0.0-2.0); HEMATOCRIT 30 % (39-51); HEMOGLOBIN 10.1 g/dL (13.5-17.5); LYMPHOCYTES # (AUTO) 0.4 /CMM (0.8-4.8); LYMPHOCYTES % (AUTO) 2.1 % (20.0-44.0); MEAN CORPUSCULAR HEMOGLOBIN 33 PG (26.0-33.0); MEAN CORPUSCULAR HGB CONC 34 g/dl (31.0-36.0); MEAN CORPUSCULAR VOLUME 98 fL (80-96); MONOCYTES # (AUTO) 0.6 /CMM (0.1-1.30); MONOCYTES % (AUTO) 3.1 % (2.0-12.0); NEUTROPHILS # (AUTO) 16.9 /CMM (1.8-8.9); NEUTROPHILS % (AUTO) 94.7 % (43.0-81.0); PLATELET COUNT (AUTO) 144 /CMM (150-450); RDW COEFFICIENT OF VARIATION 19.3 (11.5-15.0); RED BLOOD CELL COUNT(AUTO) 3.04 MIL/uL (4.5-6.0); WHITE BLOOD COUNT (AUTO) 17.9 K/uL (4.3-11.0)
--- NOTE | 2018-05-10 07:36 | NUR ---
GRAPHIC PRODUCTION ARTIST RECEIVED PATIENT FROM THE PREVIOUS SHIFT. PATIENT IS IN BED. RESTING COMFORTABLY. ON 12 MCG LEVOPHED FOR BP SUPPORT. VENT SETTINGS REVIEWED AND VERIFIED. LABS MONITORED. WILL CONTINUE TO MONITOR AND PROVIDE CARE.
--- NOTE | 2018-05-10 07:43 | NUR ---
SHIFT PRODUCTION ASSOCIATE RN INFORMED DRAWER IN STITCH BONDING MACHINE ON AN URGENT MESSAGE REGARDING NO CENTRAL VENOUS ACCESS FOR LEVOPHED. PATIENT IS RECEIVING 12 MCG/MIN LEVOPHED THROUGH PERIPHERAL ACCESS. RN CONNECTED LEVOPHED GTT TO LEFT CHEST JENNY CATH DUE TO THE URGENT NATURE OF THE SITUATION.
[2018-05-10 08:13] LABS: ABG BASE EXCESS -22.1 mmol/L; ABG OXYGEN SATURATION 98.5 % (92.0-98.5); ABG PH 7.124 (7.350-7.450); ABG PO2 219.1 mmHg (75.0-100.0); AaDO2 191.1 mmHg; COHb 0.3 % (0.5-1.5); MetHb 1.1 % (0.0-1.5); O2Hb 97.1 % (94.0-97.0); SITE, ABG Right Radial; VT, ABG 500 mL
[2018-05-10] MEDS: Sodium Bicarbonate 150 MEQ in IV D5W 1,000 ML IV PRN ×2 (08:29→15:36)
[2018-05-10] MEDS: Z GUARD REMEDY 2 OZ OINT TP SCH ×2 (08:30→21:35)
[2018-05-10] MEDS ORDERED: HEPARIN SODIUM, PORCINE 5000 UNITS/1 ML VIAL SQ SCH (09:00)
--- NOTE | 2018-05-10 10:43 | NUR ---
VIRTUAL ASSISTANT NO SEDATION PER COUNTY NURSE.
--- NOTE | 2018-05-10 10:49 | NUR ---
CONSTRUCTION SALES REPRESENTATIVE PRIMARY MD SPOKE TO FAMILY REGARDING CODE STATUS. CHEMICAL CODE STATUS ESTABLISHED WITH FAMILY. EVENT WITNESSED BY SALES RELATIONSHIP MANAGER. ORDERS PLACED.
[2018-05-10] MEDS ORDERED: ALBUMIN 25% 25 GM in PREMIX 1 EA IV ONE (11:00)
--- NOTE | 2018-05-10 11:17 | NUR ---
WOUND CARE CONSULT: PT HAVING DIALYSIS AT THIS TIME. UNABLE TO DO SKIN ASSESSMENT DUE TO DIALYSIS IN PROGRESS. PER NURSING DOCUMENTATION PT HAS SACRAL INTACT DEEP TISSUE INJURY PRESENT ON ADMISSION. RECOMMENDATIONS MADE BASED ON PHOTO DOCUMENTATION AND NURSING DOCUMENTATION. FIRST STEP MATTRESS ORDERED. ALL SKIN PROTECTION MEASURES IN PLACE AND DISCUSSED WITH NURSING STAFF. WILL SEE PRN. VANESSA IN AGREEMENT WITH PLAN OF CARE.
[2018-05-10] MEDS: BLOOD SUGAR DIAGNOSTIC 1 EACH STRIP IN SCH ×2 (12:20→17:16)
[2018-05-10] MEDS: INSULIN REGULAR, HUMAN 100 UNIT/ML 3 ML VIAL SQ PRN (12:21)
[2018-05-10 15:00] LABS: ABG BASE EXCESS -8.7 mmol/L; ABG OXYGEN SATURATION 54.1 % (92.0-98.5); ABG PCO2 27.6 mmHg (35.0-45.0); ABG PH 7.366 (7.350-7.450); ABG PO2 25.1 mmHg (75.0-100.0); AaDO2 156.4 mmHg; COHb 0.3 % (0.5-1.5); O2Hb 53.4 % (94.0-97.0); PEEP,BG 0 cm H2O; SITE, ABG Left Radial; VT, ABG 500 mL
[2018-05-10 15:16] LABS: ABG BASE EXCESS -7.4 mmol/L; ABG OXYGEN SATURATION 97.1 % (92.0-98.5); ABG PCO2 19.5 mmHg (35.0-45.0); ABG PH 7.488 (7.350-7.450); ABG PO2 101.1 mmHg (75.0-100.0); AaDO2 89.9 mmHg; COHb 0.2 % (0.5-1.5); MetHb 0.9 % (0.0-1.5); PEEP,BG 0 cm H2O; SITE, ABG Right Radial
[2018-05-10] MEDS: LORAZEPAM INJ 2 MG/ML VIAL IV PRN ×2 (15:42→21:36)
[2018-05-10] MEDS ORDERED: HEPARIN SODIUM, PORCINE 5000 UNITS/1 ML VIAL IV ONE (16:00)
[2018-05-10] MEDS ORDERED: VANCOMYCIN 1 GM in IV D5W 250 ML IV ONE (16:00)
[2018-05-10] MEDS: NOREPINEPHRINE 16 MG in IV D5W 500 ML IV PRN (17:15)
--- NOTE | 2018-05-10 17:37 | NUR ---
RT SHIFT REPORT, PT. 87 Y OLD MALE REMAIN NON RESPONSIVE ORALLY INTUBATED ETT # 7.5 @ 23 CM LIP LINE SECURED. WITH NOTED SETTINGS, VENT ALARMS ARE SET AND AUDIBLE WITH AMBU BAG AT THE BEDSIDE. GUEST SERVICE REPRESENTATIVE CUFF PRESSURE NOTED. HME CHANGES, X2 ABG'S DONE AND NO CHANGES DONE PER PULMO. VENT IS PLUGGED INTO RED OUTLET. B/S BILATERALLY RALES EQUAL CHEST RISE NOTED. SX'D FOR SMALL WHITE SECRETIONS. NO RESPIRATORY DISTRESS NOTED T/O SHIFT, NO CHANGES AMBU BAG REMAIN AT THE BEDSIDE. PT. REMAIN STABLE WILL CONTINUE TO MONITOR. REPORT WILL BE GIVEN TO PM SHIFT. Addendum: 05/10/18 at 1740 by MARISOL WHITFIELD RT Amended: Links added.
[2018-05-10] MEDS: HEPARIN INFUSION/D5W 500 ML IV PRN (17:57)
--- NOTE | 2018-05-10 19:30 | NUR ---
RN NOTES RECEIVED PT WITH ETT 7. @ LIP CONNECTED TO VENT SETTING AC 24 TV 500 FIO2 30%, ZERO PEEP. PT IS OBTUNDED ST ON TELE MONITOR. NO ACUTE RESP DISTRESS. BILATERAL BREATH SOUND DIMINISHED. OGT INTACT AND PATENT WITH NO RESIDUAL. IV SITE ON RIGHT FEMORAL TLC WITH HEPARIN @ 1100 UNITS/ HR WILL TITRATE ACCORDING TO PTT RESULT , LEVOPHED @ 8 MCG/MIN, AND TKO, IV ON RIGHT FOREARM RUNNING WITH BICARB 3AMP IN D5W @ 75 ML/HR INTACT AND PATENT WITH GOOD BLOOD RETURN. UPPER EXT AND LOWER EXT SWOLLEN . REPOSITIONED PROTOCOL AND PRN. TEMP AT THIS TIME WAS 99.6. REPOSITIONED PT FOR SKIN MANAGEMENT. KEPT PT CLEAN AND DRY. WILL CONTINUE TO MONITOR.
[2018-05-10] MEDS: PANTOPRAZOLE 40 MG VIAL IV SCH (19:33)
[2018-05-10] MEDS: FLUCONAZOLE IN NS 100 MG in PREMIX 1 EA IV SCH ×2 (19:34)
--- NOTE | 2018-05-10 20:36 | NUR ---
RECEIVED PT INTUBATED 7.5 ETT SECURED AT 23CM AT THE LIP. AC 24, 500, 30%. PT TOLERATING SETTINGS. SX'D FOR SML AMT OF THIN WHITE SECRETIONS. BS CL/DM BILAT. VENT ALARMS SET AND AUDIBLE. AMBU BAG AT BEDSIDE. VENT PLUGGED INTO RED OUTLET. WILL CONTINUE TO MONITOR. Addendum: 05/10/18 at 2039 by ELIDA PARK RT Amended: Links added.
[2018-05-11] VITALS (110 sets, daily range): BP systolic 84–158; BP diastolic 23–112
[2018-05-11] MEDS: PIPERACILLIN /TAZOBACTAM 2.25 G in IV D5W 50 ML IV SCH ×5 (00:20→23:18)
[2018-05-11] MEDS: BLOOD SUGAR DIAGNOSTIC 1 EACH STRIP IN SCH ×5 (00:33→23:20)
--- NOTE | 2018-05-11 00:35 | NUR ---
RN NOTES RECEIVED A CALL FROM LAB REPORTING ABOUT PT PTT RESULT OF 300. CALL TIFFANI ALVARES AND INFORMED THAT THE PT IS ON HEPARIN DRIP DUE TO LEFT LEG DVT , NO ACTIVE BLEEDING PRESENT. WITH ORDER TO HOLD HEPARIN AND REPEAT PTT BEFORE RESTART THE HEPARIN DRIP. NOTED AND CARRIED OUT THE ORDER.
[2018-05-11] MEDS: INSULIN REGULAR, HUMAN 100 UNIT/ML 3 ML VIAL SQ PRN ×2 (00:42→12:22)
--- NOTE | 2018-05-11 04:00 | NUR ---
RN NOTES REPORTED BY GIULIA SILVA THAT PTT= 95 PER PROTOCOL DECREASED DRIP BY 3 UNIT/KG/HR = 60 KG X 3U =180U/KG. PREVIOUS DOSE WAS 1100. CURRENT DOSE WILL BE 1100 - 180 = 920 UNITS/KG/HR
[2018-05-11] MEDS: Sodium Bicarbonate 150 MEQ in IV D5W 1,000 ML IV PRN ×2 (05:21→21:14)
[2018-05-11] MEDS: DEXTROSE 50%-WATER 50 ML DISP.SYRIN IV PRN (05:37)
--- NOTE | 2018-05-11 06:54 | NUR ---
RN NOTES PT ASLEEP WELL ON BED. NO ACUTE RESP DISTRESS. AFEBRILE TMAX 99.6. OGT INTACT AND PATENT. CONTINUE WITH LEVOPHED @ 8 MCG/MIN., BP REMAINED STABLE., HEPARIN @ 920 UNITS, BICARB @ 75 CC/HR. IV SITE REMAINED INTACT AND PATENT. NO ACTIVE BLEEDING NOTED, WILL ENDORSED CONTINUITY OFCARE TO AM NURSE AND TO CHECKED PTT @ 1000AM TODAY.
--- NOTE | 2018-05-11 07:53 | NUR ---
RT PT RECEIVED ORALLY INTUBATED WITH A 7.5 ET SECURED AT 23CM AT THE LIP LINE. PT IS ON THE VENT WITH NOTED SETTINGS. PT RESPONDS TO STIMULI WHEN SX'D. VENT ALARMS ARE SET AND AUDIBLE WITH BVM BY BEDSIDE. PRODUCTION LAPPING MACHINE OPERATOR CUFF PRESSURE NOTED. VENT IS PLUGGED INTO RED OUTLET. PT SX'D SMALL THICK PALE YELLOW SECRETIONS. NO RESPIRATORY DISTRESS NOTED AT THIS TIME, WILL CONTINUE TO MONITOR. Addendum: 05/11/18 at 0755 by RIVKA DECKER RT Amended: Links added.
[2018-05-11] MEDS: HYDROCHLOROTHIAZIDE 25 MG TABLET PO SCH (09:00)
[2018-05-11] MEDS ORDERED: CLONIDINE HCL 0.1 MG TABLET PO PRN (09:00)
[2018-05-11] MEDS: NIFEdipine XL 60 MG TAB PO SCH (09:00)
[2018-05-11] MEDS: DOXAZOSIN MESYLATE (4 MG) 4 MG TABLET PO SCH (09:00)
[2018-05-11] MEDS: METOPROLOL TARTRATE 25 MG TABLET PO SCH ×2 (09:00→16:22)
[2018-05-11 09:39] LABS: BASOPHILS % (AUTO) 0.1 % (0.0-2.0); HEMATOCRIT 28 % (39-51); HEMOGLOBIN 9.2 g/dL (13.5-17.5); LYMPHOCYTES # (AUTO) 0.7 /CMM (0.8-4.8); LYMPHOCYTES % (AUTO) 6.1 % (20.0-44.0); MEAN CORPUSCULAR HEMOGLOBIN 30 PG (26.0-33.0); MEAN CORPUSCULAR HGB CONC 33 g/dl (31.0-36.0); MEAN CORPUSCULAR VOLUME 91 fL (80-96); MONOCYTES # (AUTO) 1.6 /CMM (0.1-1.30); MONOCYTES % (AUTO) 14.3 % (2.0-12.0); NEUTROPHILS # (AUTO) 8.6 /CMM (1.8-8.9); NEUTROPHILS % (AUTO) 79.5 % (43.0-81.0); PLATELET COUNT (AUTO) 121 /CMM (150-450); RDW COEFFICIENT OF VARIATION 18.3 (11.5-15.0); RED BLOOD CELL COUNT(AUTO) 3.06 MIL/uL (4.5-6.0); WHITE BLOOD COUNT (AUTO) 10.8 K/uL (4.3-11.0)
[2018-05-11 09:55] LABS: ALANINE AMINOTRANSFERASE 12 U/L (12-78); ALKALINE PHOSPHATASE 67 U/L (46-116); ASPARTATE AMINOTRANSFERASE 25 U/L (15-37); BILIRUBIN,TOTAL 0.4 mg/dL (0.2-1.0); CALCIUM, SERUM 7.4 mg/dL (8.5-10.1); CARBON DIOXIDE 23 mmol/L (21-32); CHLORIDE 97 mmol/L (98-107); CREATININE 2.8 mg/dL (0.6-1.3); GLUCOSE 160 mg/dL (74-106); POTASSIUM 3.2 mmol/L (3.5-5.1); SODIUM SERUM 141 mmol/L (136-145); TOTAL PROTEIN, SERUM 4.8 g/dL (6.4-8.2); UREA NITROGEN, BLOOD 13 mg/dL (7-18)
[2018-05-11] MEDS ORDERED: ONDANSETRON 4 MG TAB.RAPDIS PO PRN (10:00)
[2018-05-11] MEDS: GLIMEPIRIDE 4 MG TABLET PO SCH (10:17)
[2018-05-11] MEDS: MEGESTROL ACETATE 40 MG TABLET PO SCH ×3 (10:17→16:22)
[2018-05-11] MEDS: Z GUARD REMEDY 2 OZ OINT TP SCH ×2 (10:20→20:27)
--- NOTE | 2018-05-11 10:45 | NUR ---
aptt 166. Dr. Ferrell notified. will hold for 1h than decrease bu 3units/kg/h. = 720 u/h at 11:45
--- NOTE | 2018-05-11 10:45 | NUR ---
Dr. Ferrell notified that pt is on Levo, OK to hold BP meds. K 3.2 will give 20 meq voa ngt.
[2018-05-11] MEDS ORDERED: POTASSIUM CHLORIDE 20 MEQ POWDER PACKET GT ONE (11:30)
--- NOTE | 2018-05-11 11:45 | NUR ---
Heparin restarted at 720 unit/h. will recheck in 6h.
[2018-05-11] MEDS ORDERED: BLOOD SUGAR DIAGNOSTIC 1 EACH STRIP IN SCH (12:00)
[2018-05-11 12:03] LABS: ABG BASE EXCESS -2.3 mmol/L; ABG OXYGEN SATURATION 93.6 % (92.0-98.5); ABG PCO2 22.7 mmHg (35.0-45.0); ABG PH 7.544 (7.350-7.450); ABG PO2 65.3 mmHg (75.0-100.0); AaDO2 121.9 mmHg; COHb 0.3 % (0.5-1.5); MetHb 0.9 % (0.0-1.5); O2Hb 92.5 % (94.0-97.0); PEEP,BG 0 cm H2O; SITE, ABG Left Radial; VT, ABG 500 mL
[2018-05-11] MEDS ORDERED: UMECLIDINIUM VILANTEROL INH SCH (17:00)
--- NOTE | 2018-05-11 18:00 | NUR ---
aptt sent to lab, result pending.
[2018-05-11] MEDS: NOREPINEPHRINE 16 MG in IV D5W 500 ML IV PRN (18:29)
[2018-05-11] MEDS: VANCOMYCIN 500 MG in IV D5W 100 ML IV PRN (18:30)
[2018-05-11] MEDS: SIMVASTATIN 10 MG TABLET PO SCH (18:35)
--- NOTE | 2018-05-11 19:05 | NUR ---
aptt 80. heparin gtt decreased by 2unit/kg/h = 620 units/h. as per cindy Washington RN, it is ok to round up to 600.
--- NOTE | 2018-05-11 19:21 | NUR ---
PT RECEIVED ORALLY INTUBATED WITH A 7.5 ET SECURED AT 23CM AT THE LIP LINE. PT IS ON THE VENT WITH NOTED SETTINGS. VENT ALARMS ARE SET AND AUDIBLE, AMBU BAG @ BEDSIDE. PEST CONTROL CHEMICAL TECHNICIAN CUFF PRESSURE NOTED. VENT IS PLUGGED INTO RED OUTLET. PT SX'D SMALL THICK PALE YELLOW SECRETIONS. NO RESPIRATORY DISTRESS NOTED AT THIS TIME, WILL CONTINUE TO MONITOR.
--- NOTE | 2018-05-11 20:00 | NUR ---
RN NOTES PT IS RESPONSIVE TO TACTILE STIMULI WITH ETT CONNECTED TO VENT SETTING TOLERATED WELL. TELE MONITOR REVEALS ST. HEPARIN DRIP CHANGED TO 600 U PROTOCOL FOLLOWED FOR PTT 80, LEVOPHED @ 2 MCG/MIN AND BICARB WITH D5W @ 75 ML/HR ONGOING ON RIGHT FEMORAL TLC. . REPOSITIONED FOR SKIN MANAGEMENT, PT IS CLEANED AND DRY. WILL CONTINUE TO MONITOR.
[2018-05-11] MEDS: LORAZEPAM INJ 2 MG/ML VIAL IV PRN (20:27)
[2018-05-11] MEDS: PANTOPRAZOLE 40 MG VIAL IV SCH (20:27)
[2018-05-11] MEDS: FLUCONAZOLE IN NS 100 MG in PREMIX 1 EA IV SCH ×2 (20:27)
[2018-05-11] MEDS: PROPOFOL 100 ML IV PRN (21:02)
--- NOTE | 2018-05-11 21:15 | NUR ---
RN NOTES RECEIVED A CALL FROM DR. RIOS WITH ORDER TO START DIPRIVAN TO TITRATE PER PROTOCOL ORDER NOTED AND CARRIED OUT. FAMILY AT BEDSIDE. AND MADE AWARE. PT IS MODERATE AGITATED AT THIS TIME. STARTED DIPRIVAN @ 5 MCG/KG/MIN. WILL MONITOR CLOSELY
[2018-05-12] VITALS (106 sets, daily range): BP systolic 57–177; BP diastolic 25–95
--- NOTE | 2018-05-12 02:22 | NUR ---
RN NOTES PTT = 56 SECS. , NO CHANGE RATE. CONTINUE WITH HEPARIN @ 600 UNITS, CHECKED PTT TOMORROW @ 2AM. PER PROTOCOL.
[2018-05-12 04:45] LABS: BASOPHILS # (AUTO) 0.2 /CMM (0.0-0.2); BASOPHILS % (AUTO) 1.8 % (0.0-2.0); EOSINOPHILS % (AUTO) 0.5 % (0.0-6.0); HEMATOCRIT 27 % (39-51); LYMPHOCYTES # (AUTO) 0.9 /CMM (0.8-4.8); LYMPHOCYTES % (AUTO) 9.3 % (20.0-44.0); MEAN CORPUSCULAR HEMOGLOBIN 31 PG (26.0-33.0); MEAN CORPUSCULAR HGB CONC 34 g/dl (31.0-36.0); MEAN CORPUSCULAR VOLUME 91 fL (80-96); MONOCYTES # (AUTO) 0.2 /CMM (0.1-1.30); MONOCYTES % (AUTO) 2.2 % (2.0-12.0); NEUTROPHILS # (AUTO) 8.2 /CMM (1.8-8.9); NEUTROPHILS % (AUTO) 86.2 % (43.0-81.0); PLATELET COUNT (AUTO) 106 /CMM (150-450); RDW COEFFICIENT OF VARIATION 18.4 (11.5-15.0); RED BLOOD CELL COUNT(AUTO) 2.94 MIL/uL (4.5-6.0); WHITE BLOOD COUNT (AUTO) 9.5 K/uL (4.3-11.0)
[2018-05-12 04:59] LABS: CALCIUM, SERUM 7.5 mg/dL (8.5-10.1); CARBON DIOXIDE 27 mmol/L (21-32); CHLORIDE 97 mmol/L (98-107); CREATININE 3.5 mg/dL (0.6-1.3); GLUCOSE 51 mg/dL (74-106); POTASSIUM 2.9 mmol/L (3.5-5.1); SODIUM SERUM 141 mmol/L (136-145); UREA NITROGEN, BLOOD 18 mg/dL (7-18)
[2018-05-12] MEDS: PIPERACILLIN /TAZOBACTAM 2.25 G in IV D5W 50 ML IV SCH ×4 (05:25→23:40)
[2018-05-12] MEDS: HEPARIN INFUSION/D5W 500 ML IV PRN (05:27)
[2018-05-12 05:28] LABS: BAND % (MANUAL) 18 % (0.0-5.0); LYMPHOCYTES % (MANUAL) 6 % (16-48); MONOCYTES % (MANUAL) 1 % (0-11.0); NEUTROPHILS % (MANUAL) 75 (42-76)
[2018-05-12] MEDS: DEXTROSE 50%-WATER 50 ML DISP.SYRIN IV PRN (05:36)
[2018-05-12] MEDS: BLOOD SUGAR DIAGNOSTIC 1 EACH STRIP IN SCH ×4 (05:36→23:40)
--- NOTE | 2018-05-12 06:48 | NUR ---
RN NOTES PT IS SEDATED WITH DIPRIVAN @ 10 MCG/KG.MIN. ETT AND VENT SETTING TOLERATED WELL SATURATION >92%. AFEBRILE. IV SITE KEPT TACT AND PATENT WITH ONGOING HEPARIN DRIP @ 600 UNIT/HR =12 ML/HR TITRATED PER PROTOCOL ORDER, BICARB @ 75 CC/HR, DIPRIVAN @ 10 MCG/KG/MIN AND LEVOPHED AT 2 MCG/MIN. TOLERATED WELL.VS WNL. ALL DUE MEDICINE ADMINISTERED WITHOUT ASE SHOWN. NO ACTIVE BLEEDING NOTED. BUE OOZING FROM THE SWELLING. F/C DRAINED WITH YELLOW CLOUDY URINE. KEPT CLEAN AND DRY WILL ENDORSED CONTINUITY OF CARE TO AM NURSE.
--- NOTE | 2018-05-12 07:15 | NUR ---
POTATO CHIP SACKING MACHINE OPERATOR NOTES RECEIVED PATIENT SEDATED , RESPONSIVE TO TACTILE STIMULI , NOT IN ACUTE DISTRESS , RESPIRATIONS EVEN AND AND UNLABORED WITH SPO2 OF 100% VIA MECHANICAL VENT SETTINGS ORDERED , ETT 7.[address] , ST 105 ON BEDSIDE MONITOR , OGT PATENT AND INTACT , FC DRAINING WELL VIA GRAVITY , RIGHT FEMORAL TLC WITH HEPARIN DRIP @ 600UNITS/HR , LEVOPHED @ 2MCG/MIN , D5W WITH 3 AMPS SODIUM BICARBONATE @ 75ML/HR INFUSING WELL , BILATERAL SOFT WRIST RESTRAINS IN PLACE , ALL NEEDS ATTENDED , BED ON LOW AND LOCKED POSITION , SIDE RAILS X2 , CALL LIGHT WITHIN REACH , HOB @ 35, WILL CONTINUE TO MONITOR
[2018-05-12] MEDS: METOPROLOL TARTRATE 25 MG TABLET PO SCH ×2 (08:02→17:00)
[2018-05-12] MEDS: MEGESTROL ACETATE 40 MG TABLET PO SCH ×3 (08:02→17:00)
[2018-05-12] MEDS: HYDROCHLOROTHIAZIDE 25 MG TABLET PO SCH (08:02)
[2018-05-12] MEDS: DOXAZOSIN MESYLATE (4 MG) 4 MG TABLET PO SCH (08:03)
[2018-05-12] MEDS: GLIMEPIRIDE 4 MG TABLET PO SCH (08:03)
[2018-05-12] MEDS: NIFEdipine XL 60 MG TAB PO SCH (08:03)
[2018-05-12] MEDS: Z GUARD REMEDY 2 OZ OINT TP SCH ×2 (08:04→21:35)
--- NOTE | 2018-05-12 08:06 | NUR ---
ASSOCIATE PROFESSOR OF EDUCATION NOTES GLIMEPIRIDE HELD PATIENT IS NPO WITH EPISODES OF HYPOGLYCEMIA , WILL CONTINUE TO MONITOR
[2018-05-12] MEDS ORDERED: FLUTICASONE/VILANTEROL 1 EACH BLST.W.DEV IH SCH (09:00)
[2018-05-12] MEDS ORDERED: POTASSIUM CHLORIDE 20 MEQ POWDER PACKET GT ONE (11:00)
[2018-05-12 11:03] LABS: ABG BASE EXCESS 4.3 mmol/L; ABG OXYGEN SATURATION 97.7 % (92.0-98.5); ABG PCO2 22.2 mmHg (35.0-45.0); ABG PH 7.656 (7.350-7.450); AaDO2 68.8 mmHg; COHb 0.3 % (0.5-1.5); MetHb 0.8 % (0.0-1.5); O2Hb 96.6 % (94.0-97.0); PEEP,BG 0 cm H2O; SITE, ABG Right Radial; VT, ABG 500 mL
--- NOTE | 2018-05-12 11:05 | NUR ---
RT NOTE: ABG REPORTED AND DECREASED SET RR TO 16 PER 'S ORDER.
--- NOTE | 2018-05-12 11:32 | NUR ---
MEASURING CLERK NOTES RESTARTED DIPRIVAN DUE TO MODERATE AGITATION , AWAKE , DROWSY , WILL CONTINUE TO MONITOR
[2018-05-12 11:44] LABS: IRON, SERUM 21 ug/dl (50-175); TOTAL IRON BINDING CAPACITY 65 ug/dl (250-450)
--- NOTE | 2018-05-12 11:58 | NUR ---
DIRECTOR TALENT ACQUISITION NOTES SPOKE WITH DR MALONE , DISCUSSED LABS , CHEST XRAY , PATIENT IS OFF DIPRIVAN SINCE 0900 , NOTED WITH AGITATION , OPENS EYES , ABLE TO FOLLOW SIMPLE COMMANDS IN [place] , OH HEPARIN DRIP @ 600U/HR , LEVO @ 2MCG/MIN , AND D5W WITH NA BICARB 3 AMPS @ 75ML/HR , PER MD CHANGE IVF RATE TO 50ML , MAY START FEEDING PER DIETARY AND CHANGE SSI TO Q6 MILD SLIDING SCALE , ORDER IRON PANEL , IF IRON IS BELOW 40 , START PT ON FERRLECIT IV X 3 DAYS , ORDERS CARRIED OUT
--- NOTE | 2018-05-12 13:15 | NUR ---
PROPERTY FIELD INSPECTOR NOTES PATIENT STABLE PRIOR TO HD , V/S STABLE ,AFEBRILE , WILL CONTINUE TO MONITOR
[2018-05-12] MEDS: Sodium Bicarbonate 150 MEQ in IV D5W 1,000 ML IV PRN (13:42)
--- NOTE | 2018-05-12 13:47 | NUR ---
RT NOTE: PATIENT RECEIVED ORALLY INTUBATED WITH 7.5 SECURED AT 23CM MID LIP LINE ON VENT. ALARMS VERIFIED AND AUDIBLE. SUCTIONED AND LAVAGED MODERATE-LARGE AMOUNT OF THICK GONZALEZ SECRETIONS. VENT PLUGGED INTO RED OUTLET. AMBU BAG AT [facility].
[2018-05-12] MEDS: PROPOFOL 100 ML IV PRN ×2 (14:00→20:41)
--- NOTE | 2018-05-12 14:20 | NUR ---
VEHICLE FUEL SYSTEMS CONVERTER NOTES HD DONE 1.5L OUT , WILL CONTINUE TO MONITOR
--- NOTE | 2018-05-12 14:30 | NUR ---
OIL HEATER INSTALLER NOTES PATIENT STABLE S/P HD, REMOVED 1.5L , BP OF 120 / 48, HR OF SR 85 , SPO2 OF 100% RR OF 17 , ON LEVOPHED @ 8MCG/MIN
[2018-05-12] MEDS: SOD FERRIC GLUC 125 MG in IV NS 0.9% 100 ML IV SCH (14:52)
[2018-05-12] MEDS: GLUCERNA 1.2 1,000 ML BOTTLE NG PRN (15:39)
[2018-05-12] MEDS: NOREPINEPHRINE 16 MG in IV D5W 500 ML IV PRN (17:00)
[2018-05-12] MEDS: SIMVASTATIN 10 MG TABLET PO SCH (17:00)
--- NOTE | 2018-05-12 19:00 | NUR ---
DIRECTOR OF OPERATIONS HOME HEALTH NOTES PATIENT STABLE AT THIS TIME , NOT IN ACUTE DISTRESS , RESPIRATIONS EVEN AND AND UNLABORED WITH SPO2 OF 100% VIA MECHANICAL VENT SETTINGS ORDERED , ETT 7.04/[address] , SR 80 ON BEDSIDE MONITOR , OGT PATENT AND INTACT WITH GLUCERNA @ 50ML/HR TOLERATING WELL WITH NO RESIDUALS NOTED , FC DRAINING WELL VIA GRAVITY , RIGHT FEMORAL TLC WITH HEPARIN DRIP @ 600UNITS/HR , LEVOPHED @ 6MCG/MIN , D5W WITH 3 AMPS SODIUM BICARBONATE @ 50ML/HR INFUSING WELL , BILATERAL SOFT WRIST RESTRAINS IN PLACE , ALL NEEDS ATTENDED , BED ON LOW AND LOCKED POSITION , SIDE RAILS X2 , CALL LIGHT WITHIN REACH , HOB @ 35, REPORT GIVEN TO SHAYLA FOR CONTINUITY OF CARE
--- NOTE | 2018-05-12 19:10 | NUR ---
PT RECEIVED ORALLY INTUBATED WITH A 7.5 ET SECURED AT 23CM AT THE LIP LINE. PT IS ON THE VENT WITH NOTED SETTINGS. VENT ALARMS ARE SET AND AUDIBLE, AMBU BAG @ BEDSIDE. SUPERVISOR AGRICULTURAL EDUCATION CUFF PRESSURE NOTED. VENT IS PLUGGED INTO RED OUTLET. PT SX'D MODERATE THICK PALE YELLOW SECRETIONS. NO RESPIRATORY DISTRESS NOTED AT THIS TIME, WILL CONTINUE TO MONITOR.
--- NOTE | 2018-05-12 20:10 | NUR ---
RADIATION THERAPY TECHNOLOGIST. INITIAL ASSESSMENT. RECEIVED THE PT REST ON THE BED. ORALLY INTUBATED. SEDATED WITH DIPRIVAN. ETT 7.5,LIP 23CM,AC 16,TV 500,FIO2 30%. SAT 98%. DRIER HELPER SHOWING NSR. OGT INTACT. GLUCERNA 50ML/H,GOAL IS 65ML/H,MARIZOL SOFT WRIST RESTRAINT CHECKED AND RELEASED. NO INJURY OR REDNESS NOTED. IV RT FEMORAL TRIPLE LUMEN DIPRIVAN 20MCG/KG/MIN,,LEVO 6MCG/MIN,IVF D5W ION BICARB 3AMP 50ML/H. HEPARIN 600U/H HOB ELEVATED. RT SUBCLAVIAN HD CATH INTACT. FC PATENT. WILL CONTINUE TO MONITOR VITALS.
[2018-05-12] MEDS: FLUCONAZOLE (100 MG) 100 MG TABLET PO SCH (20:48)
[2018-05-12] MEDS: PANTOPRAZOLE 40 MG VIAL IV SCH (20:48)
[2018-05-12] MEDS: INSULIN REGULAR, HUMAN 100 UNIT/ML 3 ML VIAL SQ PRN (23:44)
[2018-05-13] VITALS (75 sets, daily range): BP systolic 82–159; BP diastolic 28–97
--- NOTE | 2018-05-13 00:43 | NUR ---
INTERNAL CONTROLS ANALYST. RT FEMORAL CENTRAL LINE DRESSING CHANGED
--- NOTE | 2018-05-13 03:50 | NUR ---
MUSEUM SECURITY CHIEF. AM CARE, ORAL CARE, BED BATH GIVEN. LINEN CHANGED, REMAINING SAME VENT SETTING TOLERATED WELL. SAT 99%,MARIZOL SOFT WRIST RESTRAINT CHECKED AND RELEASED. NO INJURY OR REDNESS NOTED, TIRE TRIMMER HAND SHOWING NSR, IV RT FEMORAL TRIPLE LUMEN. DIPRIVAN 20MCG/KG/MIN. LEVOPHED 4MCG/MIN,BICARB DRIP 50ML/H,HEPARIN VOAE892F/H. OGT FEEDING TOLERATED WELL. HOB ELEVATED, FC PATENT. TURN AND REPOSITION Q2H, MARIZOL HAND WEEPING. RT HIP BRUISE. AFEBRILE. WILL CONTINUE TO MONITOR VITALS.
[2018-05-13 04:42] LABS: BASOPHILS # (AUTO) 0.1 /CMM (0.0-0.2); BASOPHILS % (AUTO) 0.7 % (0.0-2.0); EOSINOPHILS % (AUTO) 0.7 % (0.0-6.0); HEMATOCRIT 29 % (39-51); HEMOGLOBIN 9.8 g/dL (13.5-17.5); LYMPHOCYTES % (AUTO) 9.2 % (20.0-44.0); MEAN CORPUSCULAR HEMOGLOBIN 31 PG (26.0-33.0); MEAN CORPUSCULAR HGB CONC 34 g/dl (31.0-36.0); MEAN CORPUSCULAR VOLUME 91 fL (80-96); MONOCYTES # (AUTO) 0.3 /CMM (0.1-1.30); MONOCYTES % (AUTO) 2.8 % (2.0-12.0); NEUTROPHILS # (AUTO) 9.6 /CMM (1.8-8.9); NEUTROPHILS % (AUTO) 86.6 % (43.0-81.0); PLATELET COUNT (AUTO) 102 /CMM (150-450); RDW COEFFICIENT OF VARIATION 17.9 (11.5-15.0); RED BLOOD CELL COUNT(AUTO) 3.22 MIL/uL (4.5-6.0); WHITE BLOOD COUNT (AUTO) 11.1 K/uL (4.3-11.0)
[2018-05-13 04:57] LABS: ALANINE AMINOTRANSFERASE 13 U/L (12-78); ALBUMIN 1.6 g/dL (3.4-5.0); ALKALINE PHOSPHATASE 89 U/L (46-116); ASPARTATE AMINOTRANSFERASE 18 U/L (15-37); BILIRUBIN,TOTAL 0.5 mg/dL (0.2-1.0); CALCIUM, SERUM 7.3 mg/dL (8.5-10.1); CARBON DIOXIDE 28 mmol/L (21-32); CHLORIDE 94 mmol/L (98-107); CREATININE 3.1 mg/dL (0.6-1.3); GLUCOSE 152 mg/dL (74-106); MAGNESIUM 1.3 mg/dL (1.8-2.4); PHOSPHORUS 1.5 mg/dL (2.5-4.9); POTASSIUM 3.1 mmol/L (3.5-5.1); SODIUM SERUM 137 mmol/L (136-145); TOTAL PROTEIN, SERUM 4.6 g/dL (6.4-8.2); UREA NITROGEN, BLOOD 18 mg/dL (7-18)
[2018-05-13] MEDS: BLOOD SUGAR DIAGNOSTIC 1 EACH STRIP IN SCH ×3 (05:11→17:54)
[2018-05-13] MEDS: PROPOFOL 100 ML IV PRN ×2 (05:11→18:25)
[2018-05-13] MEDS: PIPERACILLIN /TAZOBACTAM 2.25 G in IV D5W 50 ML IV SCH ×3 (05:11→18:23)
--- NOTE | 2018-05-13 05:41 | NUR ---
INTERACTIVE MEDIA MARKETING DIRECTOR.PTT 63. HEPARIN 600U/MIN NO CHANGES PER PROTOCOL
--- NOTE | 2018-05-13 06:35 | NUR ---
STUDENT LOAN COUNSELOR. OGT RESIDUAL 70ML AT 0600. WILL CONTINUE TO MONITOR.
--- NOTE | 2018-05-13 07:15 | NUR ---
CLOTH DOFFER NOTES RECEIVED PATIENT SEDATED , RESPONSIVE TO TACTILE STIMULI , , NOT IN ACUTE DISTRESS , RESPIRATIONS EVEN AND AND UNLABORED WITH SPO2 OF 100% VIA MECHANICAL VENT SETTINGS ORDERED , ETT 7.[address] , SR 82 ON BEDSIDE MONITOR , OGT PATENT AND INTACT WITH GLUCERNA @ 65ML/HR NOTED WITH 120ML RESIDUALS , FC DRAINING WELL VIA GRAVITY , RIGHT FEMORAL TLC WITH HEPARIN DRIP @ 600UNITS/HR , LEVOPHED @ 2MCG/MIN , D5W WITH 3 AMPS SODIUM BICARBONATE @ 50ML/HR INFUSING WELL , BILATERAL SOFT WRIST RESTRAINS IN PLACE , ALL NEEDS ATTENDED , BED ON LOW AND LOCKED POSITION , SIDE RAILS X2 , CALL LIGHT WITHIN REACH , HOB @ 35, WILL CONTINUE TO MONITOR
--- NOTE | 2018-05-13 08:00 | NUR ---
HOME INSPECTOR NOTES SEEN AND EVALUATED BY DR KILPATRICK , DISCUSSED LABS , , LATEST V/S PATIENT CURRENTLY OFF PRESSORS , TOLERATING CURRENT VENT SETTINGS , SEDATED WITH DIPRIVAN @ 10MCG/KG/MIN , GT FEEDING OF GLUCERNA @ 65ML/HR NOTED WITH 120ML RESIDUALS , AWARE , AWAITING FOR ORDERS
[2018-05-13] MEDS ORDERED: Magnesium 1GM/D5W 100ML PREMIX 100 ML IV SCH ×2 (08:30→09:00)
[2018-05-13] MEDS: HYDROCHLOROTHIAZIDE 25 MG TABLET PO SCH (09:00)
[2018-05-13] MEDS: DOXAZOSIN MESYLATE (4 MG) 4 MG TABLET PO SCH (09:00)
[2018-05-13] MEDS: NIFEdipine XL 60 MG TAB PO SCH (09:00)
[2018-05-13] MEDS: K PHOS NEUTRAL 250 MG TABLET PO SCH ×4 (09:04→20:34)
[2018-05-13] MEDS: METOPROLOL TARTRATE 25 MG TABLET PO SCH ×3 (09:04→17:42)
[2018-05-13] MEDS: GLIMEPIRIDE 4 MG TABLET PO SCH (09:04)
[2018-05-13] MEDS: METOCLOPRAMIDE HCL 10 MG TABLET PO SCH ×3 (09:04→20:33)
[2018-05-13] MEDS: MEGESTROL ACETATE 40 MG TABLET PO SCH ×3 (09:04→16:36)
[2018-05-13] MEDS: Z GUARD REMEDY 2 OZ OINT TP SCH ×2 (09:05→20:34)
--- NOTE | 2018-05-13 09:38 | NUR ---
DEAF TEACHER NOTES VERIFIED MAGNESIUM ORDER WITH DR KILPATRICK , PER MD GIVE MAGNESIUM 2GM TODAY AND TOMORROW , NOTIFIED PHARMACIST , NOTIFIED THAT PT IS HAVING HD AT THIS TIME FOR 2 HOURS , ASKED PHARMACIST TO ADJUST TIME TO 1200
--- NOTE | 2018-05-13 10:00 | NUR ---
AQUARIUM TANK ATTENDANT NOTES SEEN AND EVALUATED BY DR ENGLAND , DISCUSSED PT IS OFF SEDATION SINCE 0900 AM , PATIENT IS WAKING UP , DROWSY, OPENS EYES , BUT DOESN'T REALLY FOLLOW COMMANDS , NOTED WITH MINIMAL AGITATION , TOLERATING CURRENT VENT SETTINGS WITH SPO2 OF 100% WITH NO SIGNS OF DISTRESS , WITH ONGOING HD AT THIS TIME , ON 1 MCG/MIN OF LEVOPHED FOR BP SUPPORT DURING HD , PER MD MONITOR PT UNTIL FULLY AWAKE FOR WEANING , WILL CONTINUE TO MONITOR
--- NOTE | 2018-05-13 10:20 | NUR ---
PICKLE CUTTER NOTES SEEN AND EVALUATED BY DR ELIAS , DISCUSSED LABS , CHEST XRAY AND LATEST V/S , AFEBRILE , DISCUSSED ABG RESULT YESTERDAY , VERIFIED IF HE WANTS TO CONTINUE IVF OF D5W WITH 3 AMPS OF BICARB @ 50ML/HR , VERIFIED ELECTROLYTES ORDER OF DR ANDRES VANESSA AGREES WITH ELECTROLYTES REPLACEMENT BY DR CAMPOS .
[2018-05-13] MEDS ORDERED: POTASSIUM CHLORIDE 20 MEQ TAB.PRT.SR PO ONE (10:30)
[2018-05-13] MEDS ORDERED: acetaZOLAMIDE SODIUM 500 MG/VIAL VIAL IV ONE (10:30)
[2018-05-13] MEDS: INSULIN REGULAR, HUMAN 100 UNIT/ML 3 ML VIAL SQ PRN ×2 (11:39→17:55)
--- NOTE | 2018-05-13 11:41 | NUR ---
TRUCKING SUPERVISOR NOTES PT STABLE S/P HD , 3L OUT , TOLERATED WELL , AFEBRILE BP OF 82/35 , LEVOPHED INCREASED TO 2MCG/MIN , WILL CONTINUE TO MONITOR
[2018-05-13] MEDS: Magnesium 1GM/D5W 100ML PREMIX 100 ML IV SCH ×2 (12:24→13:13)
[2018-05-13 14:38] LABS: ABG BASE EXCESS 4.4 mmol/L; ABG PCO2 32.8 mmHg (35.0-45.0); ABG PH 7.533 (7.350-7.450); ABG PO2 207.9 mmHg (75.0-100.0); COHb 0.3 % (0.5-1.5); MetHb 0.6 % (0.0-1.5); O2Hb 97.1 % (94.0-97.0); SITE, ABG Right Radial; VT, ABG 500 mL
[2018-05-13] MEDS: GLUCERNA 1.2 1,000 ML BOTTLE NG PRN (16:21)
--- NOTE | 2018-05-13 16:25 | NUR ---
ORACLE DATABASE CONSULTANT NOTES VERIFIED WITH DR SANCHEZ IF HE WANTS TO DC HEPARIN DRIP , DISCUSSED LATEST PTT , ON HEPARIN DRIP @ 600U/HR PER DR FRANKEL , PER CONTINUE HEPARIN DRIP UNTIL EXTUBATION , WILL CONTINUE TO MONITOR
[2018-05-13] MEDS: SOD FERRIC GLUC 125 MG in IV NS 0.9% 100 ML IV SCH (17:10)
[2018-05-13] MEDS: VANCOMYCIN 500 MG in IV D5W 100 ML IV PRN (17:10)
[2018-05-13] MEDS: SIMVASTATIN 10 MG TABLET PO SCH (17:42)
[2018-05-13] MEDS: HEPARIN INFUSION/D5W 500 ML IV PRN (17:49)
--- NOTE | 2018-05-13 18:33 | NUR ---
HVAC OPERATIONS TECHNICIAN NOTE Noted patient with frequent movement and agitation, restarted patient on Diprivan, will titrate as ordered.
--- NOTE | 2018-05-13 19:25 | NUR ---
agricultural produce sorter. initial assessment. received the pt rest on the bed. orally intubated. sedated with diprivan. ett 7.5cm, ac 16,lip 23cm,tv 500,fio2 30%. sat 98%. no acute distress noted. creative services producer showing nsr. iv rt femoral triple lumen, diprivan 17mcg/kg/min, heparin 600u/h, ogt intact. glucerna 65ml/h,hob elevated, fc patent. laura soft rest restraint checked and released, no injury or redness noted. will continue to monitor vitals.
[2018-05-13] MEDS: PANTOPRAZOLE 40 MG VIAL IV SCH (20:33)
[2018-05-13] MEDS: FLUCONAZOLE (100 MG) 100 MG TABLET PO SCH (20:37)
--- NOTE | 2018-05-13 21:26 | NUR ---
PATIENT RECEIVED ORALLY INTUBATED WITH 7.5 ON VENT. ALARMS VERIFIED AND AUDIBLE. SUCTIONED AND LAVAGED MODERATE-LARGE AMOUNT OF THICK GONZALEZ SECRETIONS. VENT PLUGGED INTO RED OUTLET. DIGNAU BAG AT HOB. Addendum: 05/13/18 at 2127 by CAREY LÓPEZ RT Amended: Links added.
[2018-05-14] VITALS (63 sets, daily range): BP systolic 84–138; BP diastolic 34–59
[2018-05-14] MEDS: PIPERACILLIN /TAZOBACTAM 2.25 G in IV D5W 50 ML IV SCH ×5 (00:25→23:55)
[2018-05-14] MEDS: BLOOD SUGAR DIAGNOSTIC 1 EACH STRIP IN SCH ×5 (00:25→23:55)
[2018-05-14] MEDS: PROPOFOL 100 ML IV PRN (00:25)
--- NOTE | 2018-05-14 03:06 | NUR ---
CRM ARCHITECT AM CARE. ORAL CARE, BED BATH GIVEN. LINEN CHANGED. REMAINING SAME VENT SETTING TOLERATED WELL. SAT 99%. NO ACUTE DISTRESS NOTED, TRANSACTION PROCESSOR SHOWING NSR,IV RT FEMORAL TRIPLE LUMEN, IV DIPRIVAN 20MCG/KG/MIN, HEPARIN 600UNIT/HOGT FEEDING TOLERATED WELL. FC PATENT. MARIZOL SOFT WRIST RESTRAINT CHECKED AND RELEASED. NO INJURY OR REDNESS NOTED, HOB ELEVATED. TURN AND REOSITION Q2H. WILL CONTINUE TO MONITOR VITALR
[2018-05-14 04:44] LABS: BASOPHILS % (AUTO) 0.5 % (0.0-2.0); EOSINOPHILS % (AUTO) 1.2 % (0.0-6.0); HEMATOCRIT 29 % (39-51); HEMOGLOBIN 9.6 g/dL (13.5-17.5); LYMPHOCYTES # (AUTO) 1.1 /CMM (0.8-4.8); LYMPHOCYTES % (AUTO) 15.2 % (20.0-44.0); MEAN CORPUSCULAR HEMOGLOBIN 30 PG (26.0-33.0); MEAN CORPUSCULAR HGB CONC 34 g/dl (31.0-36.0); MEAN CORPUSCULAR VOLUME 91 fL (80-96); MONOCYTES # (AUTO) 0.4 /CMM (0.1-1.30); MONOCYTES % (AUTO) 5.1 % (2.0-12.0); NEUTROPHILS # (AUTO) 5.8 /CMM (1.8-8.9); PLATELET COUNT (AUTO) 98 /CMM (150-450); RDW COEFFICIENT OF VARIATION 18.1 (11.5-15.0); RED BLOOD CELL COUNT(AUTO) 3.16 MIL/uL (4.5-6.0); WHITE BLOOD COUNT (AUTO) 7.4 K/uL (4.3-11.0)
[2018-05-14] MEDS: METOCLOPRAMIDE HCL 10 MG TABLET PO SCH ×3 (04:51→20:45)
[2018-05-14 05:05] LABS: CALCIUM, SERUM 7.4 mg/dL (8.5-10.1); CARBON DIOXIDE 29 mmol/L (21-32); CHLORIDE 98 mmol/L (98-107); CREATININE 3.2 mg/dL (0.6-1.3); GLUCOSE 116 mg/dL (74-106); MAGNESIUM 1.9 mg/dL (1.8-2.4); PHOSPHORUS 1.2 mg/dL (2.5-4.9); POTASSIUM 3.2 mmol/L (3.5-5.1); SODIUM SERUM 137 mmol/L (136-145); UREA NITROGEN, BLOOD 21 mg/dL (7-18)
[2018-05-14 05:50] LABS: BAND % (MANUAL) 1 % (0.0-5.0); EOSINOPHILS % (MANUAL) 1 % (0-4); LYMPHOCYTES % (MANUAL) 7 % (16-48); MONOCYTES % (MANUAL) 3 % (0-11.0); NEUTROPHILS % (MANUAL) 88 (42-76)
--- NOTE | 2018-05-14 07:15 | NUR ---
received patient. intubated ett 7.04/13 lip vent settings as ordered. no sob, difficulty breathing. patient sedated on dip at 15mcg moves to painful stimuli. patient nsr tele. ogt in place. tube feeding paused due to residual of 150ml. cabrera cath in place per rn 20ml output last night. patient bue hands noted weeping. right fem triple lumen in place clean dry intact ns tko. right ij hd cath in place clean and dry. heparin drip running per protocol aptt 51 this am no change to drip rate. safety precautions in place and aspiration precautions in place. will round prn needs.
--- NOTE | 2018-05-14 07:48 | NUR ---
dr rajan at bedside. updated on patient condition, labs, vs. aware patient bue weeping. continuing to elevate bue above heart per md.
[2018-05-14] MEDS ORDERED: POTASSIUM CHLORIDE 20 MEQ POWDER PACKET GT ONE (08:00)
--- NOTE | 2018-05-14 08:00 | NUR ---
per dr rajan order 20meq of potassium. and for low albumin and weeping order 25% albumin 100ml x3 q8h
[2018-05-14] MEDS: MEGESTROL ACETATE 40 MG TABLET PO SCH ×3 (08:22→16:02)
[2018-05-14] MEDS: Magnesium 1GM/D5W 100ML PREMIX 100 ML IV SCH ×2 (08:22→09:44)
[2018-05-14] MEDS: DOXAZOSIN MESYLATE (4 MG) 4 MG TABLET PO SCH (08:22)
[2018-05-14] MEDS: K PHOS NEUTRAL 250 MG TABLET PO SCH (08:22)
[2018-05-14] MEDS: GLIMEPIRIDE 4 MG TABLET PO SCH (08:22)
[2018-05-14] MEDS: Z GUARD REMEDY 2 OZ OINT TP SCH ×2 (08:28→20:45)
[2018-05-14] MEDS: METOPROLOL TARTRATE 25 MG TABLET PO SCH ×2 (08:29→17:00)
[2018-05-14] MEDS: NIFEdipine XL 60 MG TAB PO SCH (08:29)
[2018-05-14] MEDS: HYDROCHLOROTHIAZIDE 25 MG TABLET PO SCH (09:00)
[2018-05-14] MEDS: ALBUMIN 25% 25 GM in PREMIX 1 EA IV SCH ×2 (09:44→15:50)
--- NOTE | 2018-05-14 10:34 | NUR ---
patient family at bedside. patent following commands to squeeze hands and move however refusing to open eyes. daughter said patient prior had been at times refusing to open eyes at times as well. continuing to hold dip as patient comfortable. no increased rr rate or biting of ett
--- NOTE | 2018-05-14 11:00 | NUR ---
PATIENT TUBE RESIDUAL 25ML RESUMING FEEDING AT 30 WILL TITRATE PATIENT TOLERATES
--- NOTE | 2018-05-14 11:05 | NUR ---
dr padilla at bedside updating family. per md patient needs to be more awake before attempting to wean. family states understanding. patient is comfortable. continuing to hold dip drip
--- NOTE | 2018-05-14 11:37 | NUR ---
DR ELIAS AT BEDSIDE. UPDATED PATIENT CONDITION, LABS, VS.
[2018-05-14] MEDS: INSULIN REGULAR, HUMAN 100 UNIT/ML 3 ML VIAL SQ PRN ×2 (12:13→23:54)
[2018-05-14] MEDS: SOD FERRIC GLUC 125 MG in IV NS 0.9% 100 ML IV SCH (13:51)
[2018-05-14] MEDS ORDERED: NEUTRA PHOS 1 POWD.PACKET GT ONE (15:30)
[2018-05-14] MEDS: GLUCERNA 1.2 1,000 ML BOTTLE NG PRN (15:53)
[2018-05-14] MEDS: SIMVASTATIN 10 MG TABLET PO SCH (17:38)
[2018-05-14] MEDS: HEPARIN INFUSION/D5W 500 ML IV PRN (18:16)
--- NOTE | 2018-05-14 18:46 | NUR ---
ALL DUE MEDS GIVEN AND ALL NEEDS MET. PATIENT VS STABLE. AFEBRILE. TUBE FEEDING RUNNING AT 50ML/HR AT THIS TIME WITH 30 ML RESIDUAL. IV SITE INTACT PATENT. FEM SITE INTACT PATENT. VENT STABLE. NO CHANGE. ETT IN PLACE. OGT IN PLACE. ASPIRATION, SKIN, AND SAFETY PRECAUTIONS IN PLACE AND MONITORED THROUGHOUT DAY. PATIENT CONTINUES WITH HEP DRIP PER PROTOCOL AND PROPOFOL STOPPED THIS AM. PATIENT PER FAMILY WILL AT TIMES FOLLOW COMMANDS TO SQUEEZE HANDS BUT DOES NOT WANT TO OPEN EYES. PATIENT APPEARS COMFORTABLE. NO INDICATION TO RESUME SEDATION. CARE WILL BE ENDORSED TO RN FOR LILLIAN.
[2018-05-14] MEDS: PANTOPRAZOLE 40 MG VIAL IV SCH (20:44)
[2018-05-14] MEDS: FLUCONAZOLE (100 MG) 100 MG TABLET PO SCH (20:45)
--- NOTE | 2018-05-14 20:45 | NUR ---
PATIENT RECEIVED ORALLY INTUBATED WITH 7.5 SECURED AT 23CM MID LIP LINE ON VENT. ALARMS VERIFIED AND AUDIBLE. SUCTIONED AND LAVAGED MODERATE-LARGE AMOUNT OF THICK GONZALEZ SECRETIONS. VENT PLUGGED INTO RED OUTLET. AMBU BAG AT HOB. Addendum: 05/14/18 at 2045 by MAYCOL YANES RT Amended: Links added.
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
[2018-05-15] VITALS (59 sets, daily range): BP systolic 68–155; BP diastolic 36–84
[2018-05-15] MEDS: ALBUMIN 25% 25 GM in PREMIX 1 EA IV SCH (00:04)
[2018-05-15] MEDS: METOCLOPRAMIDE HCL 10 MG TABLET PO SCH ×3 (04:44→21:22)
[2018-05-15 04:46] LABS: BASOPHILS % (AUTO) 0.2 % (0.0-2.0); EOSINOPHILS % (AUTO) 1.1 % (0.0-6.0); HEMATOCRIT 21 % (39-51); HEMOGLOBIN 7.1 g/dL (13.5-17.5); LYMPHOCYTES # (AUTO) 1.5 /CMM (0.8-4.8); LYMPHOCYTES % (AUTO) 27.4 % (20.0-44.0); MEAN CORPUSCULAR HEMOGLOBIN 30 PG (26.0-33.0); MEAN CORPUSCULAR HGB CONC 33 g/dl (31.0-36.0); MEAN CORPUSCULAR VOLUME 91 fL (80-96); MONOCYTES # (AUTO) 0.4 /CMM (0.1-1.30); MONOCYTES % (AUTO) 8.3 % (2.0-12.0); NEUTROPHILS # (AUTO) 3.4 /CMM (1.8-8.9); PLATELET COUNT (AUTO) 103 /CMM (150-450); RED BLOOD CELL COUNT(AUTO) 2.36 MIL/uL (4.5-6.0); WHITE BLOOD COUNT (AUTO) 5.4 K/uL (4.3-11.0)
[2018-05-15] MEDS: DEXTROSE 50%-WATER 50 ML DISP.SYRIN IV PRN (04:51)
[2018-05-15 05:07] LABS: CALCIUM, SERUM 7.7 mg/dL (8.5-10.1); CARBON DIOXIDE 33 mmol/L (21-32); CHLORIDE 97 mmol/L (98-107); CREATININE 3.9 mg/dL (0.6-1.3); MAGNESIUM 2.6 mg/dL (1.8-2.4); PHOSPHORUS 1.3 mg/dL (2.5-4.9); POTASSIUM 3.4 mmol/L (3.5-5.1); SODIUM SERUM 138 mmol/L (136-145); UREA NITROGEN, BLOOD 32 mg/dL (7-18)
[2018-05-15 05:08] LABS: INR 1.18 (0.87-1.13)
[2018-05-15 05:18] LABS: GLUCOSE 40 mg/dL (74-106)
[2018-05-15] MEDS: BLOOD SUGAR DIAGNOSTIC 1 EACH STRIP IN SCH ×4 (06:00→23:20)
[2018-05-15] MEDS: INSULIN REGULAR, HUMAN 100 UNIT/ML 3 ML VIAL SQ PRN ×2 (06:42→23:11)
[2018-05-15] MEDS: PIPERACILLIN /TAZOBACTAM 2.25 G in IV D5W 50 ML IV SCH ×4 (06:44→23:09)
--- NOTE | 2018-05-15 06:53 | NUR ---
HAT CUTTER - PT'S BS WAS #36 AT 5AM. REPEATED = #30. SERUM GLUCOSE FROM LAB = #40 AT 05:19 AM. PT. WAS ADM. D50. BS REPEATED IN ONE HR. WAS #110. PTT THIS AM IS #84. RN & ENTRY LEVEL PARALEGAL REVIEWED HEPARIN NON-ACS PROTOCOL. HEPARIN GTT. IS NOW AT 500 UNITS/HR. THAPA PUMP ALARMS SET. COMPLETE BEDBATH ADM. WITH ORAL,LAURYN,OGT,SKIN/WOUND CARE ADM. WEIR CATH TO GRAVITY = 235 CC/UOP THIS SHIFT. RESIDUALS HAVE DECREASED SIGNIFICANTLY. CONT.POC.
--- NOTE | 2018-05-15 07:30 | NUR ---
received patient. intubated ett 7.04/13 lip vent settings as ordered. no sob, difficulty breathing. patient nsr tele. ogt in place. tube feeding running at goal of 65 ml per hour with 50 ml residual will monitor. cabrera cath in place draining to gravity. patient bue hands noted weeping and continued elevation above heart per md. right fem triple lumen in place clean dry intact ns tko. right ij hd cath in place clean and dry. heparin drip running per protocol aptt 84 this am; per protocol decreased drip by 100u/hour now running at 500u/hour. safety, aspiration, and skin precautions in place. will monitor
[2018-05-15] MEDS: DOXAZOSIN MESYLATE (4 MG) 4 MG TABLET PO SCH (08:13)
[2018-05-15] MEDS: Z GUARD REMEDY 2 OZ OINT TP SCH ×2 (08:13→21:22)
[2018-05-15] MEDS: MEGESTROL ACETATE 40 MG TABLET PO SCH ×3 (08:13→16:19)
[2018-05-15] MEDS: GLIMEPIRIDE 4 MG TABLET PO SCH (08:13)
--- NOTE | 2018-05-15 08:14 | NUR ---
holding patient bp medications as he is due for hd today. will admin s/p hd if applicable
--- NOTE | 2018-05-15 08:45 | NUR ---
family at bedside. inserted patient hearing aids and attempted to interact with patient. patient continues to not want to open eyes, no attempt at communication and at times will squeeze hands at family's request. patient moves limbs independently and still requires restraints for safety.
[2018-05-15] MEDS: HYDROCHLOROTHIAZIDE 25 MG TABLET PO SCH (09:00)
[2018-05-15] MEDS: METOPROLOL TARTRATE 25 MG TABLET PO SCH ×2 (09:00→17:00)
[2018-05-15] MEDS: NIFEdipine XL 60 MG TAB PO SCH (09:00)
--- NOTE | 2018-05-15 10:41 | NUR ---
hd rn bill at bedside
--- NOTE | 2018-05-15 10:45 | NUR ---
message to dr rajan to notify of hbf 7.1 today from 9.6 yesterday. no s/s bleeding.
--- NOTE | 2018-05-15 11:02 | NUR ---
per dr rajan in re to hgb 7.1 redraw cbc and complete a type and screen and notify him of results
--- NOTE | 2018-05-15 11:23 | NUR ---
dr padilla at bedside updated on patient condition, vs no new orders
[2018-05-15 11:32] LABS: BASOPHILS % (AUTO) 1.6 % (0.0-2.0); EOSINOPHILS % (AUTO) 1.6 % (0.0-6.0); HEMATOCRIT 22 % (39-51); HEMOGLOBIN 7.3 g/dL (13.5-17.5); LYMPHOCYTES # (AUTO) 0.7 /CMM (0.8-4.8); LYMPHOCYTES % (AUTO) 27.1 % (20.0-44.0); MEAN CORPUSCULAR HEMOGLOBIN 30 PG (26.0-33.0); MEAN CORPUSCULAR HGB CONC 34 g/dl (31.0-36.0); MEAN CORPUSCULAR VOLUME 90 fL (80-96); MONOCYTES # (AUTO) 0.1 /CMM (0.1-1.30); MONOCYTES % (AUTO) 3.5 % (2.0-12.0); NEUTROPHILS # (AUTO) 1.6 /CMM (1.8-8.9); NEUTROPHILS % (AUTO) 66.2 % (43.0-81.0); PLATELET COUNT (AUTO) 104 /CMM (150-450); RED BLOOD CELL COUNT(AUTO) 2.42 MIL/uL (4.5-6.0); WHITE BLOOD COUNT (AUTO) 2.5 K/uL (4.3-11.0)
--- NOTE | 2018-05-15 11:38 | NUR ---
MESSAGE TO DR DOLAN IN RE OF UPDATED CBC.
--- NOTE | 2018-05-15 12:10 | NUR ---
noon accu check 62 repeated. gave patient sugar through g tube will re check
--- NOTE | 2018-05-15 12:15 | NUR ---
ANOTHER MESSAGE TO DR DOLAN PER HIS REQUEST TO FOLLOW UP WITH HIM IN REGARDS TO FOLLOW UP CBC. PATIENT STABLE NO S/S BLEEDING AT THIS TIME. HEPARIN DRIP STILL ON HOLD PER MD ORDER
--- NOTE | 2018-05-15 13:58 | NUR ---
DR DOLAN AT BEDSIDE. UPDATED ON LABS, VS, PATIENT CONDITION. PER MD PLEASE TRANSFUSE 2 UNITS WITH HD IF ABLE; IF HD COMPLETED THEN TRANSFUSE OVER STANDARD TIME. PER MD ONCE TRANSFUSIONS COMPLETED ORDER H&H AT 8PM. FAMILY AT BEDSIDE AND SPEAKING WITH MD WEATHER TO GO AHEAD WITH TRANSFUSION OR NOT.
--- NOTE | 2018-05-15 14:00 | NUR ---
PER DR DOLAN REQUEST MESSAGE LEFT TO DR ELIAS TO CONFIRM HOW MUCH EXTRA REPLACEMENT NEEDED FOR K OF 3.4 THIS IS CONTINUALLY LOW EVEN WITH HD AND PHOS OF 1.3. PER DR DOLAN CONTINUE TO HOLD HEPARIN DRIP
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
--- NOTE | 2018-05-15 15:00 | NUR ---
PER DR DOLAN ORDER PATIENT BLOOD TRANSFUSION HANGING WITH JORDON FOX RN. 1ST PRBC INFUSING
--- NOTE | 2018-05-15 15:25 | NUR ---
1ST PRBC COMPLETED. 2ND BEGINNING
--- NOTE | 2018-05-15 15:45 | NUR ---
PATIENT 2 PRBC COMPLETED PER MD ORDER. VS STABLE. NO S/S REACTIONS.
--- NOTE | 2018-05-15 16:10 | NUR ---
HD COMPLETED. 6L OUT. VS STABLE. PATIENT RESTING COMFORTABLY. BED BATH COMPLETED.
[2018-05-15] MEDS: VANCOMYCIN 500 MG in IV D5W 100 ML IV PRN (16:20)
[2018-05-15] MEDS: GLUCERNA 1.2 1,000 ML BOTTLE NG PRN (16:22)
--- NOTE | 2018-05-15 17:44 | NUR ---
NON ADMIN METOP. PATIENT BP LABILE AT TIMES.
--- NOTE | 2018-05-15 18:49 | NUR ---
ALL DUE MEDS GIVEN AND ALL NEEDS MET. PATIENT VS STABLE. AFEBRILE. TUBE FEEDING RUNNING AT 65ML/HR AT THIS TIME WITH 40 ML RESIDUAL. IV SITE INTACT PATENT. FEM SITE INTACT PATENT. VENT STABLE. NO CHANGE. ETT IN PLACE. OGT IN PLACE. ASPIRATION, SKIN, AND SAFETY PRECAUTIONS IN PLACE AND MONITORED THROUGHOUT DAY. PATIENT PER FAMILY WILL AT TIMES FOLLOW COMMANDS TO SQUEEZE HANDS. PATIENT IS ATTEMPTING TO OPEN EYES TODAY DURING ADL'S. PATIENT APPEARS COMFORTABLE. NO INDICATION TO RESUME SEDATION. CARE WILL BE ENDORSED TO RN FOR LILLIAN. S/P 2 PRBC STABLE NO S/S REACTIONS
--- NOTE | 2018-05-15 20:21 | NUR ---
RECEIVED PT INTUBATED ON VENT 7.5 ETT SECURED AT 23CM AT THE LIP. PT TOLERATING VENT SETTINGS. BS CL/DM BILAT. SX'D FOR SML AMT OF THIN WHITE SECRETIONS. VENT ALARMS SET AND AUDIBLE. AMBU BAG AT BEDSIDE. WILL CONTINUE TO MONITOR. Addendum: 05/15/18 at 2022 by ELIDA PARK RT Amended: Links added.
[2018-05-15 20:31] LABS: HEMOGLOBIN 10.4 g/dL (13.5-17.5)
[2018-05-15] MEDS: PANTOPRAZOLE 40 MG VIAL IV SCH (21:22)
[2018-05-15] MEDS: FLUCONAZOLE (100 MG) 100 MG TABLET PO SCH (21:22)
[2018-05-15] MEDS: SIMVASTATIN 10 MG TABLET PO SCH (21:25)
[2018-05-16] VITALS (37 sets, daily range): BP systolic 105–174; BP diastolic 21–90
[2018-05-16] MEDS: METOCLOPRAMIDE HCL 10 MG TABLET PO SCH ×3 (04:21→20:12)
[2018-05-16] MEDS: INSULIN REGULAR, HUMAN 100 UNIT/ML 3 ML VIAL SQ PRN (05:23)
[2018-05-16] MEDS: PIPERACILLIN /TAZOBACTAM 2.25 G in IV D5W 50 ML IV SCH ×3 (05:23→17:20)
[2018-05-16] MEDS: BLOOD SUGAR DIAGNOSTIC 1 EACH STRIP IN SCH ×4 (05:24→23:56)
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
[2018-05-16] MEDS: METOPROLOL TARTRATE 25 MG TABLET PO SCH ×3 (09:00→17:00)
[2018-05-16] MEDS: HYDROCHLOROTHIAZIDE 25 MG TABLET PO SCH ×2 (09:00→09:31)
[2018-05-16] MEDS: GLIMEPIRIDE 4 MG TABLET PO SCH (09:00)
[2018-05-16] MEDS: DOXAZOSIN MESYLATE (4 MG) 4 MG TABLET PO SCH ×2 (09:00→09:32)
[2018-05-16] MEDS: NIFEdipine XL 60 MG TAB PO SCH (09:00)
[2018-05-16] MEDS: MEGESTROL ACETATE 40 MG TABLET PO SCH (09:31)
[2018-05-16] MEDS: Z GUARD REMEDY 2 OZ OINT TP SCH ×2 (09:34→20:12)
--- NOTE | 2018-05-16 10:11 | NUR ---
WOUND CARE CONSULT: RECEIVED CONSULT FOR FOLLOW UP. UNABLE TO TURN PT AT THIS TIME DUE TO DIALYSIS IN PROGRESS. WILL SEE PT PT CONDITION PERMITS.
[2018-05-16] MEDS ORDERED: ALBUMIN 25% 25 GM in PREMIX 1 EA IV PRN (11:00)
[2018-05-16] MEDS ORDERED: NEPRO 1,000 ML BOTTLE GT PRN (12:30)
[2018-05-16 13:26] LABS: ABG OXYGEN SATURATION 95.4 % (92.0-98.5); ABG PCO2 38.6 mmHg (35.0-45.0); ABG PH 7.527 (7.350-7.450); AaDO2 70.5 mmHg; COHb 0.1 % (0.5-1.5); O2Hb 94.4 % (94.0-97.0); SITE, ABG Right Radial; VT, ABG 500 mL
--- NOTE | 2018-05-16 14:15 | NUR ---
WOUND CARE CONSULT: PT PRESENTS WITH SACRAL DEEP TISSUE INJURY, PRESENT ON ADMISSION, WHICH IS NOW IN EVOLUTION. WOUND CONTINUES TO EVOLVE. CONTINUE PROTECTION AND MONITORING OF AREA. RT HAND SKIN TEAR NOTED. RT FLANK/HIP, GROIN AREA NOTED TO HAVE LARGE AREA OF BRUISING. LEFT HAND NOTED TO HAVE WEEPING EDEMA. RECOMMENDATIONS MADE FOR SKIN PROTECTION AND WOUND CARE AND DISCUSSED WITH NURSING STAFF. PT ON FIRST STEP LOW AIRLOSS MATTRESS. ALL SKIN PROTECTION MEASURES IN PLACE. PT IS INCONTINENT OF LOOSE STOOL. WILL SEE PRN. VANESSA IN AGREEMENT WITH PLAN OF CARE. Addendum: 05/16/18 at 1419 by FABIAN LYN WNDNU Amended: Links added.
--- NOTE | 2018-05-16 14:25 | NUR ---
RN NOTE PT EXTUBATED BY RT, ETT AND OG TUBE REMOVED, PT TOLERATED WELL, PT PUT ON NC 4 L/MIN, SATURATION 98%, RR 24, WILL MONITOR PT CLOSELY.
[2018-05-16] MEDS ORDERED: DC PROPOFOL WHEN EXTUBATED XX PRN (14:30)
[2018-05-16] MEDS: SIMVASTATIN 10 MG TABLET PO SCH (17:21)
[2018-05-16] MEDS: VANCOMYCIN 500 MG in IV D5W 100 ML IV PRN (18:42)
[2018-05-16] MEDS: FLUCONAZOLE (100 MG) 100 MG TABLET PO SCH (20:00)
--- NOTE | 2018-05-16 20:00 | NUR ---
[employer]S [employer]BLER - NOTES - PT RECEIVED IN BED ON 4L NC TOLERATING WELL 100% O2SAT, VITAL SIGNS WNL. PT IS RESTING, ABLE TO OPEN EYES BENGALI SPEAKING. SR HR 90S, BP WNL. PT IS NPO PENDING SWALLOW EVAL, SKIN ISSUES NOTED. PT HAS R FEM TLC AND R CHEST HD CATH. WILL CONTINUE TO MONITOR
[2018-05-16] MEDS: PANTOPRAZOLE 40 MG VIAL IV SCH (20:10)
[2018-05-16] MEDS: AMLODIPINE BESYLATE 5 MG TABLET GT SCH (20:11)
--- NOTE | 2018-05-16 23:30 | NUR ---
restraints removed, pt not pulling on tubes or lines
[2018-05-17] VITALS (21 sets, daily range): BP systolic 92–146; BP diastolic 35–77
[2018-05-17] MEDS: METOCLOPRAMIDE HCL 10 MG TABLET PO SCH ×3 (05:00→21:04)
[2018-05-17 05:15] LABS: CARBON DIOXIDE 34 mmol/L (21-32); CHLORIDE 103 mmol/L (98-107); GLUCOSE 52 mg/dL (74-106); POTASSIUM 3.3 mmol/L (3.5-5.1); SODIUM SERUM 142 mmol/L (136-145); UREA NITROGEN, BLOOD 26 mg/dL (7-18)
[2018-05-17] MEDS: BLOOD SUGAR DIAGNOSTIC 1 EACH STRIP IN SCH ×3 (05:22→17:13)
[2018-05-17] MEDS: DEXTROSE 50%-WATER 50 ML DISP.SYRIN IV PRN ×2 (05:22→14:26)
--- NOTE | 2018-05-17 07:05 | NUR ---
RN INITIAL NOTES RECEIVED PT AWAKE, A/OX1, PUERTO RICAN SPEAKING. NO RESPIRATORY DISTRESS NOTED. NO SOB NOTED. NO SIGNS OF PAIN NOTED. ON 02 AT 4LPM VIA NC. HOB ELEVATED. RIGHT CHESTWALL HD CATH AND RIGHT FEMORAL TLC IN PLACE. FC IN PLACE. NO HEMATURIA NOTED. PT FOR SWALLOW EVAL TODAY. BLE ELEVATED. WILL MONITOR
[2018-05-17] MEDS: Z GUARD REMEDY 2 OZ OINT TP SCH ×2 (08:28→21:15)
[2018-05-17] MEDS: DOXAZOSIN MESYLATE (4 MG) 4 MG TABLET PO SCH (09:07)
[2018-05-17] MEDS: GLIMEPIRIDE 4 MG TABLET PO SCH (09:07)
[2018-05-17] MEDS: AMLODIPINE BESYLATE 5 MG TABLET GT SCH ×2 (09:07→21:06)
[2018-05-17] MEDS: METOPROLOL TARTRATE 25 MG TABLET PO SCH ×2 (09:07→17:00)
[2018-05-17] MEDS: HYDROCHLOROTHIAZIDE 25 MG TABLET PO SCH (09:07)
--- NOTE | 2018-05-17 09:15 | NUR ---
RN NOTES SWALLOW EVAL DONE BY VIDHI HERRERA). PT TOLERATED PUREED DIET WITH NTL. WILL PROVIDE MAXIMUM ASSISTANCE WHILE EATING. WILL MONITOR.
--- NOTE | 2018-05-17 09:45 | NUR ---
RN NOTES SEEN AND EXAMINED BY DR DOLAN. PT A/OX1, DROWSY. ON 02 AT 4LPM VIA NC. SP EXTUBATION YESTERDAY. SWALLOW EVAL DONE, WILL START ON PUREED DIET NTL. MD AWARE OF LAB VALUES: POTASSIUM 3.3, WILL REPLACE WITH KCL 20MEQ PO ORDERED. BUN 26, CREA 3.0. PT LAST HD YESTERDAY, 3L OUT. PER MD, DO ABG AT 1400. PLAN OF CARE DISCUSSED WITH FAMILY MEMBERS AT BEDSIDE. WILL CONTINUE TO MONITOR.
[2018-05-17] MEDS ORDERED: POTASSIUM CHLORIDE 20 MEQ POWDER PACKET PO ONE (10:00)
--- NOTE | 2018-05-17 12:00 | NUR ---
RN NOTES PT ONLY ATE 5% OF LUNCH. PT REFUSED TO EAT. SPITTING OUT HIS FOOD. BLOOD SUGAR LEVEL, 63. NOTIFIED CHRIS (DTR IN LAW). WILL MONITOR.
[2018-05-17 14:39] LABS: ABG BASE EXCESS 6.3 mmol/L; ABG OXYGEN SATURATION 97.6 % (92.0-98.5); ABG PCO2 39.7 mmHg (35.0-45.0); ABG PH 7.496 (7.350-7.450); ABG PO2 120.3 mmHg (75.0-100.0); AaDO2 90.3 mmHg; COHb 0.3 % (0.5-1.5); MetHb 0.8 % (0.0-1.5); O2Hb 96.5 % (94.0-97.0); SITE, ABG Right Radial; VENT MODE, BG 4/MIN N/C
[2018-05-17] MEDS: IV 10% DEXTROSE 1,000 ML IV PRN (14:48)
--- NOTE | 2018-05-17 14:55 | NUR ---
RN NOTES 1400 SEEN AND EXAMINED BY DR. FRANKEL. PT DROWSY, ON 02 AT 4LPM VIA NC. NO SOB NOTED. NO SIGNS OF PAIN NOTED. PER MD, PT NOTED WITH FACIAL DROOPING AND LEFT SIDED WEAKNESS. ORDERED STAT CT HEAD WO CONTRAST. REASSESSED PT, PT'S LIPS LOOKS OFF BEC HE DOESN'T HAVE DENTURES ON. PT HAS BUE AND BLE WEAKNESS. PT REACTS TO PAINFUL STIMULI. PT WAS EXTUBATED YESTERDAY AND WAS ABLE TO PASS SWALLOW EVAL THIS AM. 1426 PT DROWSY. FACIAL GRIMACING NOTED UPON PAINFUL STIMULI. CHECKED BLOOD SUGAR,46. GIVEN D50 IVP ORDERED. WILL RECHECK BLOOD SUGAR IN 30MINS. CALLED DR. MALONE AND OBTAINED AN ORDER FOR D10 AT 30ML/HR. MD ALSO AWARE OF DR. FRANKEL'S ORDER FOR HEAD CT WO CONTRAST. PER DR. MALONE, ASK THE FAMILY MEMBERS TO BRING DENTURES. WILL CLOSELY MONITOR PT. [address] FRANKEL TO CLARIFY CT HEAD WO CONTRAST ORDER FOR FACIAL DROOPING AND LEFT SIDE WEAKNESS. CLARIFIED IF ACTIVATION OF CODE STROKE IS NEEDED. NOTIFIED OF LOW BLOOD SUGAR LEVEL, GIVEN D50 AND IVF ORDER. DR. FRANKEL SAID "NO NEED TO CALL CODE STROKE. JUST DO HEAD CT WO CONTRAST STAT". NOTIFIED THAT RADIOLOGY DEPT WAS CALLED AND WILL GET PROCEDURE DONE WITHIN 30MINS. 1500 RECHECKED BLOOD SUGAR, 155. PT ON D10 AT 30ML/HR. PT REACTS TO VERBAL AND TACTILE STIMULI. WILL CLOSELY MONITOR. Addendum: 05/17/18 at 1519 by MELINDA LABOY RN 1428 TONI (CHARGE NURSE) AND KOMAL (CRUISE COUNSELOR) AWARE.
[2018-05-17] MEDS ORDERED: Sodium Chloride 154 MEQ in IV 10% DEXTROSE 1,000 ML IV PRN (15:00)
--- NOTE | 2018-05-17 15:45 | NUR ---
KOMAL , PROCESS MANUFACTURING ENGINEER SPEAKING TO DR. FRANKEL REGARDING STAT HEAD CT ORDER DUE TO FACIAL DROOP/LEFT SIDE WEAKNESS. PER MD-DO NOT CALL CODE STROKE. NO ADDITONAL ORDERS NEEDED EXCEPT FOR HEAD CT.
--- NOTE | 2018-05-17 17:05 | NUR ---
RN NOTES CT HEAD WO CONTRAST RELAYED TO DR. FRANKEL. PT REMAINS DROWSY. OPENS EYES UPON TACTILE AND VERBAL STIMULI. PER MD, " DO NOT PUT PT ON ANY ANTICOAGULANTS". WILL CONTINUE TO MONITOR.
[2018-05-17] MEDS: SIMVASTATIN 10 MG TABLET PO SCH (17:09)
--- NOTE | 2018-05-17 18:53 | NUR ---
RN NOTES PT TRANSFERRED TO ROOM 116-1. PT CLEAN AND DRY. PT PLACED COMFORTABLE TO BED. NO SOB NOTED. NO SIGNS OF PAIN NOTED. WILL ENDORSE TO DIMA WONG FOR CONTINUITY OF CARE. PT IN STABLE CONDITION.
[2018-05-17] MEDS: PANTOPRAZOLE 40 MG VIAL IV SCH (21:05)
[2018-05-17] MEDS: FLUCONAZOLE (100 MG) 100 MG TABLET PO SCH (21:05)
[2018-05-18] VITALS (7 sets, daily range): BP systolic 110–164; BP diastolic 54–78
[2018-05-18] MEDS: BLOOD SUGAR DIAGNOSTIC 1 EACH STRIP IN SCH ×4 (01:35→17:15)
[2018-05-18] MEDS: INSULIN REGULAR, HUMAN 100 UNIT/ML 3 ML VIAL SQ PRN ×2 (01:37→05:49)
[2018-05-18] MEDS: METOCLOPRAMIDE HCL 10 MG TABLET PO SCH ×3 (05:10→20:58)
[2018-05-18] MEDS: DEXTROSE 50%-WATER 50 ML DISP.SYRIN IV PRN (05:46)
--- NOTE | 2018-05-18 05:50 | NUR ---
SALES PROJECT ENGINEER NOTES, NOTES PATIENT WITH BLOOD SUGAR OF 47MG/dL, 50% DEXTROSE ADMINISTERED ORDERED, WILL CONTINUE TO MONITOR CLOSELY. Addendum: 05/18/18 at 0637 by ENRIKE OLMEDO RN PATIENT ALERT AND RESPONSIVE NO CHANGE IN LOC BUT NOTED RESTLESSNESS AT THIS TIME.
--- NOTE | 2018-05-18 06:34 | NUR ---
COMPLIANCE TECHNICIAN NOTES, RE-CHECKED BLOOD SUGAR AFTER ADMINISTRATION OF 50% DEXTROSE AND BLOOD SUGAR AT THIS TIME 153MG/dL, WILL ENDORSE CONTINUITY OF CARE TO ONCOMING NURSE.
[2018-05-18 06:43] LABS: ALANINE AMINOTRANSFERASE 12 U/L (12-78); ALBUMIN 1.9 g/dL (3.4-5.0); ALKALINE PHOSPHATASE 73 U/L (46-116); ASPARTATE AMINOTRANSFERASE 26 U/L (15-37); BILIRUBIN,TOTAL 0.5 mg/dL (0.2-1.0); CARBON DIOXIDE 28 mmol/L (21-32); CHLORIDE 103 mmol/L (98-107); CREATININE 3.9 mg/dL (0.6-1.3); GLUCOSE 167 mg/dL (74-106); POTASSIUM 3.7 mmol/L (3.5-5.1); SODIUM SERUM 139 mmol/L (136-145); TOTAL PROTEIN, SERUM 5.1 g/dL (6.4-8.2); UREA NITROGEN, BLOOD 31 mg/dL (7-18)
[2018-05-18 06:49] LABS: BASOPHILS % (AUTO) 0.2 % (0.0-2.0); EOSINOPHILS % (AUTO) 1.6 % (0.0-6.0); HEMATOCRIT 32 % (39-51); HEMOGLOBIN 10.7 g/dL (13.5-17.5); LYMPHOCYTES # (AUTO) 1.4 /CMM (0.8-4.8); LYMPHOCYTES % (AUTO) 27.1 % (20.0-44.0); MEAN CORPUSCULAR HEMOGLOBIN 30 PG (26.0-33.0); MEAN CORPUSCULAR HGB CONC 33 g/dl (31.0-36.0); MEAN CORPUSCULAR VOLUME 90 fL (80-96); MONOCYTES # (AUTO) 0.6 /CMM (0.1-1.30); MONOCYTES % (AUTO) 11.7 % (2.0-12.0); NEUTROPHILS # (AUTO) 3.1 /CMM (1.8-8.9); NEUTROPHILS % (AUTO) 59.4 % (43.0-81.0); PLATELET COUNT (AUTO) 172 /CMM (150-450); RDW COEFFICIENT OF VARIATION 18.1 (11.5-15.0); RED BLOOD CELL COUNT(AUTO) 3.53 MIL/uL (4.5-6.0); WHITE BLOOD COUNT (AUTO) 5.2 K/uL (4.3-11.0)
[2018-05-18 07:08] LABS: IRON, SERUM 32 ug/dl (50-175)
--- NOTE | 2018-05-18 07:35 | NUR ---
RN OPENING NOTES RECEIVED PT. PT IS STABLE AND RESTING IN BED. NO S/S OF RESP DISTRESS OR SOB. PT IS A/OX1, YI SPEAKING ONLY. NO C/O PAIN AT THIS TIME. PER SUPERVISOR MICROFILM DUPLICATING UNIT REPORT, PT HAS HAD FREQUENT ISSUES WITH HYPOGLYCEMIA. PER FAMILY REQUEST, PT IS NOT TO BE PUT ON ANTICOAGULANTS. SAFETY MEASURES IN MILES, CALL LIGHT WITHIN REACH. WILL CONTINUE TO MONITOR.
[2018-05-18] MEDS: HYDROCHLOROTHIAZIDE 25 MG TABLET PO SCH (08:46)
[2018-05-18] MEDS: AMLODIPINE BESYLATE 5 MG TABLET GT SCH ×2 (08:46→20:58)
[2018-05-18] MEDS: DOXAZOSIN MESYLATE (4 MG) 4 MG TABLET PO SCH (08:46)
[2018-05-18] MEDS: GLIMEPIRIDE 4 MG TABLET PO SCH (08:47)
[2018-05-18] MEDS: METOPROLOL TARTRATE 25 MG TABLET PO SCH ×2 (08:48→16:46)
[2018-05-18] MEDS: ALBUMIN 25% 25 GM in PREMIX 1 EA IV SCH ×2 (09:18→16:41)
[2018-05-18] MEDS: MEGESTROL ACETATE 40 MG TABLET PO SCH ×2 (09:19→16:42)
[2018-05-18] MEDS: Z GUARD REMEDY 2 OZ OINT TP SCH ×2 (09:19→21:34)
--- NOTE | 2018-05-18 09:40 | NUR ---
RN NOTES AM GLIMEPRIDE HELD DUE TO PT'S REFUSAL TO EAT BREAKFAST AND EPISODE OF HYPOGLYCEMIA IN EARLY AM. WILL CONTINUE TO MONITOR BLOOD SUGAR.
[2018-05-18] MEDS: SOD FERRIC GLUC 125 MG in IV NS 0.9% 100 ML IV SCH (15:01)
[2018-05-18] MEDS: SIMVASTATIN 10 MG TABLET PO SCH (18:00)
--- NOTE | 2018-05-18 19:42 | NUR ---
RN CLOSING NOTES PT IN BED RESTING. NO S/S OF RESP DISTRESS OR SOB. NO C/O PAIN. ALL PT NEEDS ANTICIPATED AND MET. SAFETY MEASURES IN PLACE, CALL LIGHT WITHIN REACH. WILL ENDORSE TO DIRECTOR OF INTELLIGENCE FOR LILLIAN.
[2018-05-18] MEDS: FLUCONAZOLE (100 MG) 100 MG TABLET PO SCH (20:00)
[2018-05-18] MEDS: PANTOPRAZOLE 40 MG VIAL IV SCH (21:07)
[2018-05-19] VITALS (7 sets, daily range): BP systolic 109–164; BP diastolic 55–86
[2018-05-19] MEDS: BLOOD SUGAR DIAGNOSTIC 1 EACH STRIP IN SCH ×5 (00:10→23:50)
[2018-05-19] MEDS: ALBUMIN 25% 25 GM in PREMIX 1 EA IV SCH (00:16)
[2018-05-19] MEDS: METOCLOPRAMIDE HCL 10 MG TABLET PO SCH ×3 (05:00→21:44)
[2018-05-19] MEDS: IV 10% DEXTROSE 1,000 ML IV PRN (05:33)
[2018-05-19] MEDS: DEXTROSE 50%-WATER 50 ML DISP.SYRIN IV PRN (05:47)
[2018-05-19 06:41] LABS: CARBON DIOXIDE 31 mmol/L (21-32); CHLORIDE 105 mmol/L (98-107); CREATININE 3.3 mg/dL (0.6-1.3); GLUCOSE 264 mg/dL (74-106); POTASSIUM 3.3 mmol/L (3.5-5.1); SODIUM SERUM 141 mmol/L (136-145); UREA NITROGEN, BLOOD 17 mg/dL (7-18)
[2018-05-19 07:09] LABS: CALCIUM, SERUM 8.4 mg/dL (8.5-10.1)
--- NOTE | 2018-05-19 07:10 | NUR ---
RN NOTES PT IN STABLE CONDITION. NO ACUTE DISTRESS NOTED. NO SIGNS OF PAIN. ALL NEEDS ATTENDED. SAFETY MEASURES AND ASPIRATION PRECAUTION OBSERVED AT ALL TIMES. ENDORSED TO PM NURSE FOR [facility] Addendum: 05/19/18 at 1940 by CYNDI DUVALL RN NOTES FOR 1909
--- NOTE | 2018-05-19 07:15 | NUR ---
TELE/RN NOTES RECEIVED PT IN BED ASLEEP BUT EASILY AROUSABLE. NO SOB NOTED. NO C/O PAIN. SR ON TELE MONITOR. FC IN PLACED DRAINING YELLOW COLORED URINE. WITH INTACT RCHEST WALL HD CATH. WITH ONGOING IVF D10 @ 30 ML/HR INFUSING WELL ON R FEMORAL TLC. WITH SOFT BILATERAL WRIST RESTRAINT WITH NO SIGNS OF COMPROMISE CIRCULATION NOTED. PER PM NURSE ENORSEMENT, PT'S BS FOR 0600 IS 54, D50 GIVEN. PT IN NO ACUTE SIGNS OF HYPOGLYCEMIA. SAFETY MEASURES OBSERVED. ASPIRATION PRECAUTION MAINTAINED. CALL LIGHT WITHIN REACH. WILL CONTINUE TO MONITOR
--- NOTE | 2018-05-19 08:00 | NUR ---
RN NOTES CAREGIVER AND FAMILY AT BEDSIDE. BILAT SOFT WRIST RESTRAINT REMOVED AT THIS TIME PER FAMILY REQUEST. PT IS CALM AND NOT REMOVING IV LINES. WILL CONT TO MONITOR
--- NOTE | 2018-05-19 08:30 | NUR ---
RN NOTES SEEN BY ST, SWALLOW TREAT DONE. PT TOLERATED WELL. PER ST, PT CAN RPOGRESS TO PUREED WITH THIN LIQUIDS
[2018-05-19] MEDS: DOXAZOSIN MESYLATE (4 MG) 4 MG TABLET PO SCH (08:57)
[2018-05-19] MEDS: MEGESTROL ACETATE 40 MG TABLET PO SCH ×2 (08:57→17:18)
[2018-05-19] MEDS: GLIMEPIRIDE 4 MG TABLET PO SCH (08:57)
[2018-05-19] MEDS: METOPROLOL TARTRATE 25 MG TABLET PO SCH ×2 (08:58→17:19)
[2018-05-19] MEDS: HYDROCHLOROTHIAZIDE 25 MG TABLET PO SCH (08:58)
[2018-05-19] MEDS: AMLODIPINE BESYLATE 5 MG TABLET GT SCH ×2 (08:58→21:47)
[2018-05-19] MEDS: Z GUARD REMEDY 2 OZ OINT TP SCH ×2 (08:59→21:50)
[2018-05-19] MEDS: INSULIN REGULAR, HUMAN 100 UNIT/ML 3 ML VIAL SQ PRN (12:37)
--- NOTE | 2018-05-19 13:30 | NUR ---
RN NOTES NOTIFIED DR. DOLAN RE: POTASSIUM LEVEL 3.3, AWAITING FOR ORDERS
[2018-05-19] MEDS: SOD FERRIC GLUC 125 MG in IV NS 0.9% 100 ML IV SCH (14:50)
--- NOTE | 2018-05-19 17:15 | NUR ---
RN NOTES CURRENT BS: 57, NO SIGNS OF HYPOGLYCEMIA SUCH SWEATING, SHAKING, SEIZURES, OR LOSS OF CONSCIOUSNESS NOTED AT THIS TIME. WILL RECHECK AFTER 15 MIN
[2018-05-19] MEDS: SIMVASTATIN 10 MG TABLET PO SCH (17:18)
--- NOTE | 2018-05-19 17:30 | NUR ---
RN NOTES REPEAT BS =63, STILL NO SIGNS OF HYPOGLYCEMIA NOTED. ORANGE JUICE GIVEN. CURRENTLY HAVING DINNER, WILL RECHECK BS AND CONT TO MONITOR
--- NOTE | 2018-05-19 18:30 | NUR ---
RN NOTES PT CONSUMED 50% OF DINNER. RECHECKED BS, CURRENT BS = 134, NO ACUTE DISTRESS NOTED
--- NOTE | 2018-05-19 19:10 | NUR ---
RN NOTES PT IN STABLE CONDITION. NO ACUTE DISTRESS NOTED. NO SIGNS OF PAIN. ALL NEEDS ATTENDED. SAFETY MEASURES AND ASPIRATION PRECAUTION OBSERVED AT ALL TIMES. ENDORSED TO PM NURSE CURRENT POTASSIUM LEVEL AND FOR LILLIAN
[2018-05-19] MEDS ORDERED: ALLA266C2 TP (19:28)
[2018-05-19] MEDS ORDERED: METO25TA20 PO (19:28)
[2018-05-19] MEDS ORDERED: DOXA4TAB19 PO (19:28)
[2018-05-19] MEDS ORDERED: MEGE40TA PO (19:28)
[2018-05-19] MEDS ORDERED: AMLO5TAB2 GT (19:28)
[2018-05-19] MEDS ORDERED: ONDA4TAB11 PO (19:28)
[2018-05-19] MEDS ORDERED: CLON0.1T14 PO (19:28)
[2018-05-19] MEDS ORDERED: ALBUT2 NEB (19:28)
[2018-05-19] MEDS ORDERED: HYDR25TA4 PO (19:28)
[2018-05-19] MEDS ORDERED: IPRA0.2S9 NEB (19:28)
[2018-05-19] MEDS ORDERED: ACET650S11 RC (19:28)
[2018-05-19] MEDS ORDERED: PANT40VI IV (19:28)
[2018-05-19] MEDS ORDERED: METO10TA3 PO (19:28)
--- NOTE | 2018-05-19 19:30 | NUR ---
RN/TELE NOTES: RECEIVED PT. IN BED W/ FAMILY AND MAINTENANCE DEPARTMENT MANAGER AT BEDSIDE. W/HOB ELEVATED. A/O X 1 SURINAMESE SPEAKING ONLY. ON TELE MONITOR W/ SR @ 88. W/ F/C PATENT AND INTACT DRAINING VIA GRAVITY YELLOW URINE. WITH SOFT WRIST RESTRAINTS OFF RIGHT NOW DUE TO FAMILY PRESENT AT BEDSIDE. HAS HD CATH ON RIGHT CHEST WALL. HAS RIGHT FEMORAL TLC W/ D10 @ 30 CC/HR INFUSING W/ NO S/S OF INFECTION/INFILTRATION NOTED. NO S/S OF HYPO/HYPERGLYCEMIA NOTED. NO FACIAL GRIMACE OR MOANING NOTED. NO S/S OF ANY RESPIRATORY DISTRESS. BEDS LOCKED AND IN LOW POSITION. WILL CONTINUE TO MONITOR.
[2018-05-19] MEDS: PANTOPRAZOLE 40 MG VIAL IV SCH (21:44)
[2018-05-19] MEDS: FLUCONAZOLE (100 MG) 100 MG TABLET PO SCH (21:44)
[2018-05-20] VITALS: BP 130/63
[2018-05-20 04:00] VITALS: BP 151/70
[2018-05-20 04:16] VITALS: BP 151/70
[2018-05-20] MEDS: METOCLOPRAMIDE HCL 10 MG TABLET PO SCH ×2 (05:00→12:08)
[2018-05-20] MEDS: BLOOD SUGAR DIAGNOSTIC 1 EACH STRIP IN SCH ×2 (05:14→12:00)
[2018-05-20] MEDS: INSULIN REGULAR, HUMAN 100 UNIT/ML 3 ML VIAL SQ PRN ×2 (05:17→12:02)
[2018-05-20 06:30] VITALS: BP 122/76
--- NOTE | 2018-05-20 06:57 | NUR ---
TELE/RN NOTES: BS 147. HELD COVERAGE DUE TO PT. HAVING HYPOGLYCEMIC EVENTS LAST TWO DAYS. WILL ENDORSE TO AM SHIFT NURSE.
[2018-05-20 07:01] LABS: CALCIUM, SERUM 8.6 mg/dL (8.5-10.1); CARBON DIOXIDE 28 mmol/L (21-32); CHLORIDE 102 mmol/L (98-107); GLUCOSE 181 mg/dL (74-106); POTASSIUM 4.1 mmol/L (3.5-5.1); SODIUM SERUM 138 mmol/L (136-145); UREA NITROGEN, BLOOD 22 mg/dL (7-18)
--- NOTE | 2018-05-20 07:20 | NUR ---
TELE/RN INITIAL NOTES RECEIVED PT IN BED ASLEEP BUT EASILY AROUSABLE. ON ROOM AIR. NO SIGNS OF DISTRESS. NO C/O PAIN. SR ON TELEMONITOR. WITH INTACT R CHEST WALL HD SEGUN, NO SIGNS OF INFECTION. WITH ONGOING IVF D10 @ 30 ML/HR INFUSING WELL ON RIGHT FEMORAL TLC. NO SIGNS OF INFECTION NOTED. WITH FC INTACT, DRAINING BY GRAVITY YELLOW COLORED URINE. SAFETY MEASURES AND ASPIRATION PRECAUTION OBSERVED. CALL LIGHT WITHIN REACH
--- NOTE | 2018-05-20 07:22 | NUR ---
RN/TELE NOTES: NO ACUTE CHANGES NOTED DURING THIS SHIFT. REPORT GIVEN TO AM NURSE FOR LILLIAN.
[2018-05-20 08:00] VITALS: BP 143/68
--- NOTE | 2018-05-20 08:00 | NUR ---
RN NOTES PT O2 SAT @ 81 PER SAMEERA RAMIREZ, RECHECKED AND GOT 88%, NO SOB NOTED. DENIES CHEST PAIN, PLACED PT ON 2L VIA NC. SATURATED 97%
[2018-05-20] MEDS: MEGESTROL ACETATE 40 MG TABLET PO SCH (08:33)
[2018-05-20] MEDS: GLIMEPIRIDE 4 MG TABLET PO SCH (08:34)
[2018-05-20] MEDS: HYDROCHLOROTHIAZIDE 25 MG TABLET PO SCH (08:34)
[2018-05-20] MEDS: DOXAZOSIN MESYLATE (4 MG) 4 MG TABLET PO SCH (08:34)
[2018-05-20] MEDS: AMLODIPINE BESYLATE 5 MG TABLET GT SCH (08:35)
[2018-05-20] MEDS: METOPROLOL TARTRATE 25 MG TABLET PO SCH (08:35)
[2018-05-20] MEDS: Z GUARD REMEDY 2 OZ OINT TP SCH (08:36)
--- NOTE | 2018-05-20 10:00 | NUR ---
RN NOTES SPOKE AND NOTIFIED DR DOLAN RE: EPISODE OF DESAT OF 88%. MD ORDER OK TO D/C PT WITH 2L O2 VIA NC D/T EPISODE OF DESAT. D/C TO [facility] AFTER HD TODAY AND ARRANGE HD SCHED. WILL NOTIFIED CM
--- NOTE | 2018-05-20 10:30 | NUR ---
RN NOTES PT ON 2L O2 VIA NC SATURATING AT 97%. TOLERATING WELL. NO SOB AND C/O PAIN. WILL CONT TO MONITOR
--- NOTE | 2018-05-20 11:30 | NUR ---
RN NOTES HD STARTED BY HD NURSE. PLS SEE HD NOTES
[2018-05-20 12:00] VITALS: BP 107/52
--- NOTE | 2018-05-20 15:00 | NUR ---
RN NOTES HD DONE. PT TOLERATED WELL. SEE HD NOTES
--- NOTE | 2018-05-20 15:20 | NUR ---
RN NOTES REPORT GIVEN TO DIMA LOCKE ([facility])
--- NOTE | 2018-05-20 16:20 | NUR ---
RN D/C NOTES D/C PT IN STABLE CONDITION TO [facility], TRANSPORTED BY AMBULANCE VIA GURNEY. ON 2L O2 SATURATING WELL, NO SOB, NO C/O PAIN. RCHEST WALL HD CATH INTACT WITH NO SIGNS OF INFECTION, R FEMORAL TLC INTACT, WITH NO SIGNS OF INFECTION. F/C INTACT AND IN PLACED. REPORT GIVEN TO ANA DOYLE. SAFETY MEASURES OBSERVED AT ALL TIMES. ALL NEEDS ATTENDED. D/C
== END 2018-05-20 16:25 | DRG 564 ==
LOC: ER 15:24 → ICU 17:11 → TELE1 05-17 18:35 → MEDSG1 05-20 09:06
PROVIDERS: ADMIT Family Medicine; ATTEND Family Medicine
PROC: 5A1955Z Respiratory Ventilation, Greater than 96 Consecutive Hours (ICD-10-PCS; principal; 2018-05-09)
PROC: 0BH18EZ Insertion of Endotracheal Airway into Trachea, Via Natural or Artificial Opening Endoscopic (ICD-10-PCS; 2018-05-09)
PROC: 02HV33Z Insertion of Infusion Device into Superior Vena Cava, Percutaneous Approach (ICD-10-PCS; 2018-05-09)
PROC: B548ZZA Ultrasonography of Superior Vena Cava, Guidance (ICD-10-PCS; 2018-05-09)
PROC: 5A1D70Z Performance of Urinary Filtration, Intermittent, Less than 6 Hours Per Day (ICD-10-PCS; 2018-05-10)
PROC: 5A1D70Z Performance of Urinary Filtration, Intermittent, Less than 6 Hours Per Day (ICD-10-PCS; 2018-05-11)
PROC: 5A1D70Z Performance of Urinary Filtration, Intermittent, Less than 6 Hours Per Day (ICD-10-PCS; 2018-05-12)
PROC: 5A1D70Z Performance of Urinary Filtration, Intermittent, Less than 6 Hours Per Day (ICD-10-PCS; 2018-05-13)
PROC: 5A1D70Z Performance of Urinary Filtration, Intermittent, Less than 6 Hours Per Day (ICD-10-PCS; 2018-05-15)
PROC: 5A1D70Z Performance of Urinary Filtration, Intermittent, Less than 6 Hours Per Day (ICD-10-PCS; 2018-05-16)
PROC: 5A1D70Z Performance of Urinary Filtration, Intermittent, Less than 6 Hours Per Day (ICD-10-PCS; 2018-05-17)
PROC: 5A1D70Z Performance of Urinary Filtration, Intermittent, Less than 6 Hours Per Day (ICD-10-PCS; 2018-05-18)
DX: Z96.649 Presence of unspecified artificial hip joint (principal); A41.9 Sepsis, unspecified organism; N18.6 End stage renal disease; R65.21 Severe sepsis with septic shock; J96.01 Acute respiratory failure with hypoxia; G92 Toxic encephalopathy; I13.2 Hypertensive heart and chronic kidney disease with heart failure and with stage 5 chronic kidney disease, or end stage renal disease; N39.0 Urinary tract infection, site not specified; Q61.3 Polycystic kidney, unspecified; E87.2 Acidosis; I82.412 Acute embolism and thrombosis of left femoral vein; E11.22 Type 2 diabetes mellitus with diabetic chronic kidney disease; Z99.2 Dependence on renal dialysis; N40.0 Benign prostatic hyperplasia without lower urinary tract symptoms; E11.36 Type 2 diabetes mellitus with diabetic cataract; E11.42 Type 2 diabetes mellitus with diabetic polyneuropathy; D69.6 Thrombocytopenia, unspecified; D63.8 Anemia in other chronic diseases classified elsewhere; G30.9 Alzheimer's disease, unspecified; F02.80 Dementia in other diseases classified elsewhere, unspecified severity, without behavioral disturbance, psychotic disturbance, mood disturbance, and anxiety; I25.10 Atherosclerotic heart disease of native coronary artery without angina pectoris; Z79.4 Long term (current) use of insulin; Z79.84 Long term (current) use of oral hypoglycemic drugs; Z79.82 Long term (current) use of aspirin; Z79.899 Other long term (current) drug therapy; Z87.442 Personal history of urinary calculi; Z87.01 Personal history of pneumonia (recurrent); Z86.73 Personal history of transient ischemic attack (TIA), and cerebral infarction without residual deficits; Z82.49 Family history of ischemic heart disease and other diseases of the circulatory system; K21.9 Gastro-esophageal reflux disease without esophagitis; J44.9 Chronic obstructive pulmonary disease, unspecified; E78.5 Hyperlipidemia, unspecified; Z86.79 Personal history of other diseases of the circulatory system; E11.65 Type 2 diabetes mellitus with hyperglycemia; R29.6 Repeated falls; M19.90 Unspecified osteoarthritis, unspecified site; M81.0 Age-related osteoporosis without current pathological fracture; B37.9 Candidiasis, unspecified; R00.0 Tachycardia, unspecified; H91.90 Unspecified hearing loss, unspecified ear; F43.10 Post-traumatic stress disorder, unspecified; E83.39 Other disorders of phosphorus metabolism; E83.51 Hypocalcemia; Z98.890 Other specified postprocedural states; E87.6 Hypokalemia; G47.33 Obstructive sleep apnea (adult) (pediatric); Z51.5 Encounter for palliative care
CPT/HCPCS: 31720; 36415; 36600; 70450-TC; 71045-TC; 74018; 80048-TC; 80053-TC; 80076-TC; 80202-TC; 81000-TC; 82803-TC; 82962-TC; 83540-TC; 83605-TC; 83735-TC; 84100-TC; 84443-TC; 84484-TC; 85025-TC; 85027-TC; 85730-TC; 86850-TC; 86921-TC; 87040-TC; 87081-TC; 87086-TC; 90935-TC; 92526; 92611-TC; 93307-TC; 93970-TC; 94002-TC; 94003-TC; 94762-TC; 94799-TC; A4216; A4606; A6403; C1751; C9113; J0330; J1120; J1450; J1644; J1815; J2060; J2543; J2916; J3370; J3475; J3490; J7030; J7040; J7050; J7060; J7070; J8597; P9016-BL; P9047; Z7610

== ENCOUNTER 2018-05-22 14:02 | Inpatient (IN) | payer MEDICARE, OTHER ==
[2018-05-22] VITALS (7 sets, daily range): BP systolic 130–138; BP diastolic 68–96
[~2018-05-22] VITALS: Ht 162.6 cm; Wt 62.6 kg
[~2018-05-22 14:02] MED LIST changes: -ACET-868 PO; +ALBUT2 NEB; +ALLA266C2 TP; -AMIN30LI4 PO; -AMIO200T2 PO; +AMLO5TAB2 GT; -AMLO5TAB2 PO; -ASCO500T9 PO; -ATOR20TA PO; -BLOO-668 IN; -Blood Sugar Diagnostic IN; -CLON1PAT TD; -CLON1PAT2 TD; -DONE5TAB34 PO; +DOXA4TAB19 PO; -HYDR-4076 PO; -HYDR20VI4 IV; +HYDR25TA4 PO; -INSU100I30 SQ; -INSU100V11 SQ; -INSU100V28 SQ; +IPRA0.2S9 NEB; -MAGN400T26 PO; -MECL-102 PO; +MEGE40TA PO; -METF850T2 PO; +METO10TA3 PO; +METO25TA20 PO; -MULT-447 PO; +ONDA4TAB11 PO; -ONDA4TAB5 PO; -PANT40TA2 PO; -PANT40VI PO; -POLY17PO4 PO; -Polyvinyl Alcohol EACHEYE; -TAMS-12 PO; -[UNRECOGNIZED DRUG - OTHER] PO
--- NOTE | 2018-05-22 16:10 | NUR ---
TELE/RN OPENING NOTE PATIENT RECEIVED ON RSHISHMAREF AND WITH NO REBREATHER MAST AT 10L/MIN. PATIENT NOT ALERT, NOT FOLLOWING COMMANDS. RAC AC G 20 PATNET AND SALINE LOCKED. BED LOW AND LOCKED. SIDE RAILS X 3. CALL LIGHT WITHIN REACH. WILL MURTAZA TO MONITOR.
[2018-05-22] MEDS ORDERED: HYDROCODONE/APAP 5/325MG 1 EACH TABLET PO PRN (17:30)
[2018-05-22] MEDS ORDERED: ONDANSETRON HCL/PF 4 MG/2 ML VIAL IVP PRN (17:30)
[2018-05-22] MEDS ORDERED: MAG HYDROX/AL HYDROX/SIMETH 30 ML UDC PO PRN (17:30)
[2018-05-22] MEDS ORDERED: MAGNESIUM HYDROXIDE 30 ML UDC PO PRN (17:30)
[2018-05-22 18:54] LABS: ABG BASE EXCESS 4.5 mmol/L; ABG PCO2 37.1 mmHg (35.0-45.0); ABG PH 7.493 (7.350-7.450); ABG PO2 129.2 mmHg (75.0-100.0); AaDO2 113.3 mmHg; SITE, ABG Left Radial; VENT MODE, BG 4L NRB
[2018-05-22] MEDS ORDERED: DEXTROSE 50%-WATER 50 ML DISP.SYRIN IVP PRN (19:00)
--- NOTE | 2018-05-22 19:00 | NUR ---
TELE/RN NOTE CODE STATUS ORDER IS PLAVE PER EMILY SALGUERO. MD ORDERED.
--- NOTE | 2018-05-22 19:02 | NUR ---
TELE/RN CLOSING NOTE PATIET IN BED SLEEPING. RESPIRATION REGULAR. PATIENT NOT ALERT, NOT FOLLOWING COMMANDS. PATIENT ON OXYEGN AT 4L/MIN VIA NC. RIGHT AC G20 PATENT AND SALINE LOCKED. BED LOW AND LOCKED. SIDE RAILS UP X3. CALL LIGHT WITHIN REACH. WILL ENDORSE TO VALVE MACHINE OPERATOR.
[2018-05-22 19:25] LABS: CALCIUM, SERUM 8.6 mg/dL (8.5-10.1); CARBON DIOXIDE 25 mmol/L (21-32); CHLORIDE 105 mmol/L (98-107); CREATININE 4.6 mg/dL (0.6-1.3); GLUCOSE 71 mg/dL (74-106); MAGNESIUM 1.5 mg/dL (1.8-2.4); PHOSPHORUS 3.6 mg/dL (2.5-4.9); POTASSIUM 3.9 mmol/L (3.5-5.1); SODIUM SERUM 141 mmol/L (136-145); UREA NITROGEN, BLOOD 24 mg/dL (7-18)
--- NOTE | 2018-05-22 19:30 | NUR ---
DIP UNIT OPERATOR INITIAL NOTE PT IS IN BED, NON RESPONSIVE TO STIMULI. FAMILY AT BEDSIDE. BREATHING IS LABORED WITH USE OF ACCESSORY MUSCLES, ON NON REBREATHER. IV ACCESS IS INTACT AND PATENT. F/C IS INTACT AND DRAINING. AWAITING LABS TO RESULT TO CONTACT DR SANCHEZ. BED IS IN UPRIGHT POSITION, BED ALARM IS ON. WILL CONTINUE TO MONITOR PT.
[2018-05-22 19:31] LABS: BASOPHILS % (AUTO) 0.1 % (0.0-2.0); EOSINOPHILS % (AUTO) 0.1 % (0.0-6.0); HEMATOCRIT 35 % (39-51); HEMOGLOBIN 11.2 g/dL (13.5-17.5); LYMPHOCYTES # (AUTO) 0.9 /CMM (0.8-4.8); MEAN CORPUSCULAR HEMOGLOBIN 29 PG (26.0-33.0); MEAN CORPUSCULAR HGB CONC 33 g/dl (31.0-36.0); MEAN CORPUSCULAR VOLUME 90 fL (80-96); MONOCYTES # (AUTO) 0.5 /CMM (0.1-1.30); MONOCYTES % (AUTO) 3.7 % (2.0-12.0); NEUTROPHILS # (AUTO) 11.7 /CMM (1.8-8.9); NEUTROPHILS % (AUTO) 89.1 % (43.0-81.0); PLATELET COUNT (AUTO) 328 /CMM (150-450); RDW COEFFICIENT OF VARIATION 17.8 (11.5-15.0); RED BLOOD CELL COUNT(AUTO) 3.85 MIL/uL (4.5-6.0); WHITE BLOOD COUNT (AUTO) 13.1 K/uL (4.3-11.0)
--- NOTE | 2018-05-22 19:42 | NUR ---
TELE/RN NOTE SPOKE WITH DR DOLAN AND NEW ORDERS ARE RECEIVED. ALL THE ORDERS READ BACK, VERIFIED. NOTED AND CARRIED OUT.
[2018-05-22] MEDS ORDERED: Sodium Chloride 77 MEQ in IV 10% DEXTROSE 1,000 ML IV PRN (20:00)
[2018-05-22] MEDS ORDERED: NEPRO 1,000 ML BOTTLE GT PRN (20:00)
--- NOTE | 2018-05-22 20:15 | NUR ---
RN NOTE D50 WAS PUSHED BS 71. PT BS TRENDING DOWN WITH CLARIFICATION OF ORDERS NEEDED. CONSULTED WITH CHARGED AND AGREED THAT D50 SHOULD BE PUSHED CONSIDERING PTS CONDITION AT THIS TIME.
[2018-05-22] MEDS ORDERED: Sodium Chloride 154 MEQ in IV 10% DEXTROSE 1,000 ML IV PRN (20:30)
--- NOTE | 2018-05-22 20:30 | NUR ---
MS RN NOTE ORDER TO TRANSFER PT TO ICU WAS OBTAINED FROM DR SANCHEZ. REPORT GIVEN TO DIMA MOORE FOR LILLIAN
--- NOTE | 2018-05-22 20:50 | NUR ---
TRANSFER NOTE PT WAS TRANSFERRED TO ICU PER PROTOCOL.
--- NOTE | 2018-05-22 21:14 | NUR ---
CONTACT FAMILY MEMBER, ISSAC TO UPDATE ON TRANSFER TO ICU RM [id number]
[2018-05-22] MEDS ORDERED: DEXTROSE 10% IN WATER 250 ML BAG IV PRN (22:30)
--- NOTE | 2018-05-22 22:30 | NUR ---
RN NOTE RECEIVED PT IN NO ACUTE DISTRESS IN BED. PT IS RESPONSIVE TO PAINFUL STIMULI ONLY. PT OPENS EYES BUT DOES NOT TRACH. PT IS ON O2 VIA NC @ 2LPM AND TOLERATING WELL WITH O2 SAT @ 97%. PT HAS RIGHT FEMORAL TLC THAT IS CLEAN DRY INTACT AND PATENT WITH SALINE FLUSH. PT HAS F/C THAT IS CLEAN DRY INTACT AND PATENT WITH CLEAR YELLOW URINE DRAINING. BED IN LOW LOCK POSITION WITH RIALS UP X 2. CALL LIGHT WITHIN REACH AND ALL SAFETY MEASURES ENSURED AND CARRIED OUT. WILL CONTINUE TO MONITOR PT.
--- NOTE | 2018-05-22 22:55 | NUR ---
RN NOTE SPOKE WITH DR DOLAN AND RECEIVED ORDERS TO KEEP HOB ABOVE 30 DEGREES, TITRATE O2 TO KEEP PULSE OX GREATER THAN 91%, OK FOR FAMILY TO BRING FOOD, VENOUS DOPPLER ON BILATERAL EXTREMITIES IN AM, ATROVENT AND ALBUTEROL BREATHING TREATMENT Q8H FOR 24HRS, FLOMAX 0.4 DAILY, LOVENOX 30MG DAILY, MAGNESIUM 2G IV NOW AND IN AM, D10W @ 20ML/HR, CBC, CMP, MAG, PHOS IN AM. READBACK ORDERS PERFORMED AND CARRIED OUT.
[2018-05-22] MEDS ORDERED: TAMSULOSIN 0.4 MG CAP.SR.24H PO ONE (23:30)
--- NOTE | 2018-05-22 23:39 | NUR ---
2330 MEDICATION WILL BE GIVEN LATE DUE TO INABILITY TO PLACE NG TUBE AT THIS TIME. FAMILY IS AT BEDSIDE. WILL ATTEMPT REINSERTION AFTER FAMILY LEAVES.
[2018-05-22] MEDS: IPRATROPIUM NEB FS 0.5 MG/2.5 ML AMPUL.NEB NEB SCH (23:43)
[2018-05-22] MEDS: ALBUTEROL HALF STRENGTH 1.25 MG/3 ML VIAL.NEB NEB SCH (23:43)
[2018-05-23] VITALS (31 sets, daily range): BP systolic 116–161; BP diastolic 59–83
[2018-05-23] MEDS ORDERED: ENOXAPARIN SODIUM 30 MG/0.3 ML DISP.SYRIN SQ ONE
[2018-05-23] MEDS: Magnesium 1GM/D5W 100ML PREMIX 100 ML IV SCH ×2 (00:06→01:12)
--- NOTE | 2018-05-23 00:45 | NUR ---
RN NOTE NG TUBE PLACED WITH POSITIVE STOMACH GARGLE. WILL ORDER XRAY FOR POSITIVE PLACEMENT.
--- NOTE | 2018-05-23 01:10 | NUR ---
RN NOTE CXR ORDERED AND AWAITING ALLEY CLEANER.
--- NOTE | 2018-05-23 01:56 | NUR ---
RN NOTE CXR SHOWS POSITIVE PLACEMENT OF NGTUBE.
[2018-05-23] MEDS ORDERED: TAMSULOSIN 0.4 MG CAP.SR.24H ONE (02:52)
[2018-05-23] MEDS: DONEPEZIL 5 MG TABLET PO SCH ×2 (02:53→21:28)
[2018-05-23 04:53] LABS: BASOPHILS % (AUTO) 0.2 % (0.0-2.0); EOSINOPHILS % (AUTO) 0.3 % (0.0-6.0); HEMATOCRIT 33 % (39-51); HEMOGLOBIN 11.2 g/dL (13.5-17.5); LYMPHOCYTES # (AUTO) 1.1 /CMM (0.8-4.8); LYMPHOCYTES % (AUTO) 9.3 % (20.0-44.0); MEAN CORPUSCULAR HEMOGLOBIN 30 PG (26.0-33.0); MEAN CORPUSCULAR HGB CONC 34 g/dl (31.0-36.0); MEAN CORPUSCULAR VOLUME 88 fL (80-96); MONOCYTES # (AUTO) 0.5 /CMM (0.1-1.30); MONOCYTES % (AUTO) 4.2 % (2.0-12.0); NEUTROPHILS # (AUTO) 10.7 /CMM (1.8-8.9); PLATELET COUNT (AUTO) 366 /CMM (150-450); RED BLOOD CELL COUNT(AUTO) 3.71 MIL/uL (4.5-6.0); WHITE BLOOD COUNT (AUTO) 12.3 K/uL (4.3-11.0)
[2018-05-23 05:24] LABS: ALANINE AMINOTRANSFERASE 12 U/L (12-78); ALBUMIN 2.5 g/dL (3.4-5.0); ALKALINE PHOSPHATASE 68 U/L (46-116); ASPARTATE AMINOTRANSFERASE 18 U/L (15-37); BILIRUBIN,TOTAL 0.3 mg/dL (0.2-1.0); CALCIUM, SERUM 8.6 mg/dL (8.5-10.1); CARBON DIOXIDE 25 mmol/L (21-32); CHLORIDE 103 mmol/L (98-107); CREATININE 4.7 mg/dL (0.6-1.3); GLUCOSE 189 mg/dL (74-106); MAGNESIUM 2.3 mg/dL (1.8-2.4); PHOSPHORUS 4.3 mg/dL (2.5-4.9); POTASSIUM 4.1 mmol/L (3.5-5.1); SODIUM SERUM 138 mmol/L (136-145); TOTAL PROTEIN, SERUM 6.2 g/dL (6.4-8.2); UREA NITROGEN, BLOOD 25 mg/dL (7-18)
--- NOTE | 2018-05-23 06:30 | NUR ---
RN NOTE RECEIVED CALL FROM CARLOS VILLALBA RN WITH URINE CULTURE [facility]S FROM [facility]. WILL ENDORSE TO AM DIMA.
--- NOTE | 2018-05-23 06:43 | NUR ---
RN NOTE PT REMAINS IN NO ACUTE DISTRESS IN BED. PT DID NOT HAVE ANY SIGNIFICANT CHANGE IN CONDITION DURING SHIFT. ALL NEEDS MET, ALL ORDERS CARRIED OUT. WILL ENDORSE CARE TO AM RN FOR CONTINUITY OF CARE.
--- NOTE | 2018-05-23 07:30 | NUR ---
ICU/RN: Pt received in bed, lethargic, difficult to arouse, with weak gag, cough reflex. Crackles and wet cough auscultated. Deep suctioning performed by RT with improvement in lung sounds. Turned and repositioned for comfort. Will cont to monitor pt.
[2018-05-23] MEDS: IPRATROPIUM NEB FS 0.5 MG/2.5 ML AMPUL.NEB NEB SCH ×5 (07:32→23:44)
[2018-05-23] MEDS: ALBUTEROL HALF STRENGTH 1.25 MG/3 ML VIAL.NEB NEB SCH ×5 (07:32→23:44)
--- NOTE | 2018-05-23 08:37 | NUR ---
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 PT ALSO NOTED TO HAVE LARGE AREAS OF BRUISING TO RT ARM, FLANK,RIBS, HIP AND THIGH AREAS PRESENT ON ADMISSION. PT FOLLOWED BY PLASTIC SURGERY TEAM FOR WOUNDS. DEFER TO SURGICAL TEAM FOR WOUND TREATMENT PLAN. ALL SKIN PROTECTION AND PRESSURE ULCER PREVENTION RECOMMENDATIONS DISCUSSED WITH NURSING STAFF. WILL SEE PRN. FIRST STEP LOW AIRLOSS MATTRESS ORDERED. CURRENT LIS SCORE IS 9. Addendum: 05/23/18 at 0841 by FABIAN LYN WNDNU Amended: Links added.
--- NOTE | 2018-05-23 08:45 | NUR ---
ICU/RN: Dr Hrarison at bedside for pulmonology consult. POC dw family.
[2018-05-23] MEDS ORDERED: Magnesium 1GM/D5W 100ML PREMIX 100 ML IV SCH (09:00)
--- NOTE | 2018-05-23 09:00 | NUR ---
ICU/RN: Dr Ferrell discussed pt status and POC with family. Family wishes to continue current POC; agreeable to PEG placement. GI consult requested with Dr Encinas.
[2018-05-23] MEDS: MEMANTINE HCL 5 MG TABLET PO SCH (09:14)
[2018-05-23] MEDS: CLONIDINE HCL 0.2MG/24H PTWK 1 EA PATCH TD SCH (09:14)
[2018-05-23] MEDS ORDERED: DEXTROSE 10% IN WATER 250 ML BAG IV PRN (09:30)
[2018-05-23] MEDS ORDERED: IV 10% DEXTROSE 1,000 ML IV PRN (10:00)
[2018-05-23] MEDS: CEFTRIAXONE 1 G in IV NS 0.9% 50 ML IV SCH (10:04)
--- NOTE | 2018-05-23 11:00 | NUR ---
ICU/RN: Dr Encinas at bedside for GI eval, pending swallow eval prior to PEG placement.
[2018-05-23] MEDS ORDERED: DEXTROSE 50%-WATER 50 ML DISP.SYRIN IV PRN (12:00)
[2018-05-23 12:07] LABS: INR 1.17 (0.87-1.13)
[2018-05-23] MEDS: BLOOD SUGAR DIAGNOSTIC 1 EACH STRIP IN SCH ×3 (12:32→23:41)
--- NOTE | 2018-05-23 12:45 | NUR ---
ICU/RN: Pt failed swallow eval, refuses to swallow, weak cough noted. Dr Alvarado informed. Plan for PEG placement today.
--- NOTE | 2018-05-23 15:30 | NUR ---
ICU/RN: S/P PEG placement, pt received in stable condition, no distress noted. Family at bedside, educated and updated on pt status. Pt VSS. No active bleeding noted. Orders noted and carried out.
--- NOTE | 2018-05-23 18:15 | NUR ---
ICU/RN: Spoke with daughter in lawTamar regarding consent for R hand and Sacral debridement. Per family, they would like to discuss first before consenting and will let staff know later tonight.
--- NOTE | 2018-05-23 19:06 | NUR ---
ICU/RN: HD complete; 1.5 L out, pt tolerated well. F/U consent and clarification of code status endorsed to PM RN for LILLIAN.
--- NOTE | 2018-05-23 19:30 | NUR ---
RN INITIAL NOTES RECEIVED THE PATIENT SLEEPING ON BED, LETHARGIC, AROUSABLE TO TOUCH AND PAIN, PT IS HARD OF HEARING. ON 2L NASAL CANNULA, SATURATING WELL, NO S/S OF RESP DISTRESS. SINUS TACH ON THE MONITOR, HR 110'S. WEIR CATH IN PLACE. PEG IS INTACT, CLAMPED. RIGHT CHEST WALL HD CATH INTACT. RIGHT AC 20G AND RIGHT FEMORAL TLC WITH D10W @ 20MLS/HR, FLUSHED AND PATENT and, NO S/S OF INFILTRATION/INFECTION, DRESSINGS CDI. BED LOW AND LOCKED, SIDERAILS UP, CALL LIGHT WITHIN REACH. WILL MONITOR
[2018-05-23] MEDS: ENOXAPARIN SODIUM 30 MG/0.3 ML DISP.SYRIN SQ SCH (20:06)
--- NOTE | 2018-05-23 20:30 | NUR ---
RN NOTES CLARIFIED PATIENT CODE STATUS WITH [id number] CHRIS. PER FAMILY, PATIENT IS DNR BUT OK TO INTUBATE. NOTIFIED DR DOLAN
[2018-05-23] MEDS: TAMSULOSIN 0.4 MG CAP.SR.24H PO SCH (21:28)
[2018-05-24] VITALS (65 sets, daily range): BP systolic 72–152; BP diastolic 33–91
[2018-05-24 04:22] LABS: BASOPHILS % (AUTO) 0.3 % (0.0-2.0); EOSINOPHILS % (AUTO) 1.9 % (0.0-6.0); HEMATOCRIT 30 % (39-51); HEMOGLOBIN 10.1 g/dL (13.5-17.5); LYMPHOCYTES # (AUTO) 1.4 /CMM (0.8-4.8); LYMPHOCYTES % (AUTO) 17.4 % (20.0-44.0); MEAN CORPUSCULAR HEMOGLOBIN 30 PG (26.0-33.0); MEAN CORPUSCULAR HGB CONC 34 g/dl (31.0-36.0); MEAN CORPUSCULAR VOLUME 90 fL (80-96); MONOCYTES # (AUTO) 0.5 /CMM (0.1-1.30); MONOCYTES % (AUTO) 6.2 % (2.0-12.0); NEUTROPHILS # (AUTO) 6.2 /CMM (1.8-8.9); NEUTROPHILS % (AUTO) 74.2 % (43.0-81.0); PLATELET COUNT (AUTO) 360 /CMM (150-450); RDW COEFFICIENT OF VARIATION 17.8 (11.5-15.0); RED BLOOD CELL COUNT(AUTO) 3.35 MIL/uL (4.5-6.0); WHITE BLOOD COUNT (AUTO) 8.3 K/uL (4.3-11.0)
[2018-05-24] MEDS: BLOOD SUGAR DIAGNOSTIC 1 EACH STRIP IN SCH ×4 (05:16→23:51)
--- NOTE | 2018-05-24 06:20 | NUR ---
RN CLOSING NOTES PT REMAINS STABLE OF THE MOMENT. ALL DUE MEDS GIVEN, AM CARE PROVIDED. WILL ENDORSE LILLIAN TO AM RN
--- NOTE | 2018-05-24 07:10 | NUR ---
RECEIVED CARE OF PATIENT. NON VERBAL AWAKE TO TOUCH/LIGHT PAIN. PATIENT WITH G TUBE IN PLACE PATENT; PENDING TUBE FEEDING START TODAY. NO S/S SOB, DIFFICULTY BREATHING, AND FLACC 0. PATIENT DOES NOT WANT TO OPEN EYES HOWEVER DAUGHTER STATES THIS IS A CHRONIC ISSUE. IV SITE CLEAN DRY INTACT PATENT RUNNING IVF PER ORDER. PATIENT ON 2LPM NC SATTING 91% (COPD PATIENT) NO AIRWAY COMPROMISE NOTED. SKIN, SAFETY, AND ASPIRATION PRECAUTIONS IN PLACE. WILL MONITOR
[2018-05-24] MEDS: IPRATROPIUM NEB FS 0.5 MG/2.5 ML AMPUL.NEB NEB SCH ×3 (07:43→23:16)
[2018-05-24] MEDS: ALBUTEROL HALF STRENGTH 1.25 MG/3 ML VIAL.NEB NEB SCH ×3 (07:43→23:16)
[2018-05-24] MEDS: MEMANTINE HCL 5 MG TABLET PO SCH (08:21)
[2018-05-24] MEDS: CLONIDINE HCL 0.2MG/24H PTWK 1 EA PATCH TD SCH ×2 (08:21→09:00)
[2018-05-24] MEDS: Z GUARD REMEDY 2 OZ OINT TP PRN ×2 (08:21→18:23)
[2018-05-24] MEDS: CADEXOMER IODINE 40 GM TUBE TP SCH (08:23)
--- NOTE | 2018-05-24 08:50 | NUR ---
dr downing at bedside. updated on patient condition, labs, vs, patient presentation. stable on 1-2 lpm nc. no new orders
--- NOTE | 2018-05-24 08:55 | NUR ---
hd rn at bedside
[2018-05-24] MEDS: NEPRO 1,000 ML BOTTLE GT PRN (09:23)
--- NOTE | 2018-05-24 09:24 | NUR ---
dr dietrich at bedside. per md patient ok to resume tube feeding per order.
--- NOTE | 2018-05-24 11:32 | NUR ---
hd completed 1.5 l out. vs stable
[2018-05-24] MEDS: CEFTRIAXONE 1 G in IV NS 0.9% 50 ML IV SCH (11:47)
--- NOTE | 2018-05-24 16:33 | NUR ---
[place] aware of patient blood pressure dropping. message to dr perez to notify. awaiting orders. patient placed supine, legs elevated, and tube feeding paused.
--- NOTE | 2018-05-24 16:41 | NUR ---
per dr perez give 500ns bolus and once completed notify md of updated bp. order added per
[2018-05-24] MEDS ORDERED: IV NS 0.9% 500 ML IV ONE ×2 (17:00→19:30)
[2018-05-24] MEDS: INSULIN REGULAR, HUMAN 100 UNIT/ML 3 ML VIAL SQ PRN (18:23)
--- NOTE | 2018-05-24 18:40 | NUR ---
message left to dr perez to update on vs s/p 500 ns bolus. sbp 82. paused tube feeding at this time placed patient supine legs elevated. g tube in place patent. val corley speaking with family for d/c hospice/home health/snf. patient tolerating nc 2lpm o2 varies 90-99% while at rest. patient continues to not open eyes and will grimace to pain. per family same mentation no change. cabrera cath in place draining to gravity, central line clean dry intact and patent, hd cath in place clean and dry. safety, skin, and aspiration precautions in place. care will be endorsed to lory phan for shireen
--- NOTE | 2018-05-24 19:08 | NUR ---
PER DR TADEO GIVE ANOTHER 500 NL NS BOLUS. IF BP CONTINUES IN THE 80'S OK TO GIVE ALBUMIN 25% 200ML ONCE. IF AFTER THIS BP CONTINUES LOW PLEASE CONTACT DR DOLAN OFFICE. BP AT THIS TIME 96/47
[2018-05-24] MEDS ORDERED: ALBUMIN 25% 50 GM in PREMIX 1 EA IV ONE (19:30)
--- NOTE | 2018-05-24 19:30 | NUR ---
RN INITIAL NOTES RECEIVED THE PATIENT SLEEPING ON BED, LETHARGIC, AROUSABLE TO PAIN. ON 2L NASAL CANNULA, SATURATING WELL, NO S/S OF RESP DISTRESS. SINUS TACH ON THE MONITOR, HR 110'S. SBP IS 80'S. NS IV BOLUS BEING GIVEN. WEIR CATH IN PLACE. PEG TO NEPHRO GTF @ 45MLS/HR, NO RESIDUALS. RIGHT CHEST WALL HD CATH INTACT. RIGHT AC 20G AND RIGHT FEMORAL TLC, FLUSHED AND PATENT, NO S/S OF INFILTRATION/INFECTION, DRESSINGS CDI. BED LOW AND LOCKED, SIDERAILS UP, CALL LIGHT WITHIN REACH. WILL MONITOR
--- NOTE | 2018-05-24 19:50 | NUR ---
RN NOTES DR DOLAN IN PATIENT ROOM TO ASSESS THE PATIENT. GAVE UPDATE TO MD IN REGARDS TO PATIENT BLOOD PRESSURE. MD ORDERED LEVOPHED DRIP STANDARD DOSE PRN TO KEEP SBP > 90
[2018-05-24] MEDS ORDERED: NOREPINEPHRINE 8 MG in IV D5W 500 ML IV PRN (20:00)
[2018-05-24] MEDS: ENOXAPARIN SODIUM 30 MG/0.3 ML DISP.SYRIN SQ SCH (20:35)
[2018-05-24] MEDS: DONEPEZIL 5 MG TABLET PO SCH (21:08)
[2018-05-24] MEDS: TAMSULOSIN 0.4 MG CAP.SR.24H PO SCH (21:08)
--- NOTE | 2018-05-24 23:53 | NUR ---
PT ON NC, SWITCH TO SM 5L DO TO LOW O2 SAT AND MOUTH BREATHER. RN NOTIFIED. WILL CONTINUE TO MONITOR.
[2018-05-25] VITALS (68 sets, daily range): BP systolic 80–149; BP diastolic 32–82
[2018-05-25] MEDS: BLOOD SUGAR DIAGNOSTIC 1 EACH STRIP IN SCH ×4 (05:04→23:35)
[2018-05-25] MEDS: INSULIN REGULAR, HUMAN 100 UNIT/ML 3 ML VIAL SQ PRN ×2 (05:06→12:01)
--- NOTE | 2018-05-25 06:10 | NUR ---
RN CLOSING NOTES PT REMAINS STABLE OF THE MOMENT. ALL DUE MEDS GIVEN, AM CARE PROVIDED. WILL ENDORSE LILLIAN TO AM RN
--- NOTE | 2018-05-25 07:04 | NUR ---
RECEIVED CARE OF PATIENT. NON VERBAL AWAKE TO LIGHT PAIN. PATIENT WITH G TUBE IN PLACE PATENT TUBE FEEDING RUNNING AT GOAL. NO S/S SOB, DIFFICULTY BREATHING, AND FLACC 0. PATIENT ON SIMPLE FACE 100% WILL TITRATE TOLERATED. PATIENT DOES NOT WANT TO OPEN EYES HOWEVER DAUGHTER STATES THIS IS A CHRONIC ISSUE BUT WORSENING. DR DOLAN AWARE PATIENT MENTAL STATUS AND ALERTNESS HAVE CONTINUED TO DECREASE. IV SITE CLEAN DRY INTACT PATENT. NO AIRWAY COMPROMISE NOTED AT THIS TIME. PATIENT PLACED ON SIDE TO ASSIST WITH AIRWAY PROTECTION. SKIN, SAFETY, AND ASPIRATION PRECAUTIONS IN PLACE. WILL MONITOR.
[2018-05-25] MEDS: IPRATROPIUM NEB FS 0.5 MG/2.5 ML AMPUL.NEB NEB SCH ×2 (07:35→14:54)
[2018-05-25] MEDS: ALBUTEROL HALF STRENGTH 1.25 MG/3 ML VIAL.NEB NEB SCH ×2 (07:35→14:54)
[2018-05-25] MEDS: MEMANTINE HCL 5 MG TABLET PO SCH (08:06)
[2018-05-25] MEDS: CLONIDINE HCL 0.2MG/24H PTWK 1 EA PATCH TD SCH (08:06)
--- NOTE | 2018-05-25 08:06 | NUR ---
HOLDING CLONIDINE PATCH PATIENT WITH HYPOTENSION LAST NIGHT
[2018-05-25] MEDS: CADEXOMER IODINE 40 GM TUBE TP SCH (08:07)
--- NOTE | 2018-05-25 08:33 | NUR ---
DR GIRON AT BEDSIDE. NOTIFIED PATIENT RESPIRATIONS NOISY S/P BOLUS'S. PER MD SPAULDING TO NASOTRACH SUCTION PRN. PATIENT TOLERATING 2LPM NC 100% AT THIS TIME. AIRWAY PATENT
[2018-05-25] MEDS: CEFTRIAXONE 1 G in IV NS 0.9% 50 ML IV SCH (10:38)
[2018-05-25] MEDS: ACETAMINOPHEN 325 MG TABLET PO PRN (11:20)
--- NOTE | 2018-05-25 11:21 | NUR ---
SLIGHTLY FEBRILE 99.7. BLANKETS REMOVED, WORK ORDER ADDED FOR FAN ROOM IS WARM.
[2018-05-25] MEDS: NEPRO 1,000 ML BOTTLE GT PRN (13:14)
[2018-05-25] MEDS: Z GUARD REMEDY 2 OZ OINT TP PRN (13:14)
--- NOTE | 2018-05-25 15:54 | NUR ---
BP 82/33 PAUSED TUBE FEEDING. HOB LOWERED, LEGS ELEVATED. NOTIFIED DR DOLAN AND PER MD GIVE 500NS BOLUS AND KEEP IN ICU AT THIS TIME. ORDER ADDED PER MD. PATIENT MORE ALERT OPENING EYES ON HIS OWN AND SWALLOWING SALIVA. MD AWARE AND AT BEDSIDE.
[2018-05-25] MEDS ORDERED: IV NS 0.9% 500 ML IV ONE (16:00)
--- NOTE | 2018-05-25 16:45 | NUR ---
BP STABLE. HOB ELEVATED TUBE FEEDING RESUMED.
--- NOTE | 2018-05-25 17:10 | NUR ---
PER DR DOLAN MESSAGE LEFT TO NOTIFY HIM OF BP S/P BOLUS. AWAITING ORDERS. PATIENT DEEP SUCTIONED S/P BOLUS NOISY RESPIRATIONS NOTED. PER FAMILY THEY HAVE CONTACT WITH A HOME HEALTH/HOSPICE COMPANY AND HAVE ARRANGEMENTS SET UP FOR HOME ON DC. NOTIFIED MD OF THIS INFORMATION
--- NOTE | 2018-05-25 18:50 | NUR ---
ALL DUE MEDS GIVEN AND ALL NEEDS ASSESSED AND MET. PATENT CONTINUES TO BE NON-VERBAL; WILL MUMBLE AT TIMES. AWAKE TO TOUCH/LIGHT PAIN. ATTEMPTING TO OPEN EYES ON OWN AND WILL OPEN WITH ADLS. PATIENT WITH G TUBE IN PLACE PATENT. NO S/S SOB, DIFFICULTY BREATHING, AND FLACC 0. IV SITE CLEAN DRY INTACT PATENT. PATIENT ON 1LPM NC SATTING 96% (COPD PATIENT) NO AIRWAY COMPROMISE NOTED. SKIN, SAFETY, AND ASPIRATION PRECAUTIONS IN PLACE. WILL ENDORSE CARE TO RN FOR LILLIAN
--- NOTE | 2018-05-25 19:30 | NUR ---
RN INITIAL NOTES RECEIVED THE PATIENT SLEEPING ON BED, LETHARGIC, AROUSABLE TO TOUCH AND PAIN. ON 2L NASAL CANNULA, SATURATING WELL, NO S/S OF RESP DISTRESS. SINUS TACH ON THE MONITOR, HR 110'S. WEIR CATH IN PLACE. PEG TO NEPHRO GTF @ 45MLS/HR, 10MLS RESIDUALS. RIGHT CHEST WALL HD CATH INTACT. RIGHT AC 20G AND RIGHT FEMORAL TLC, FLUSHED AND PATENT, NO S/S OF INFILTRATION/INFECTION, DRESSINGS CDI. BED LOW AND LOCKED, SIDERAILS UP, CALL LIGHT WITHIN REACH. WILL MONITOR
[2018-05-25] MEDS: ENOXAPARIN SODIUM 30 MG/0.3 ML DISP.SYRIN SQ SCH (20:03)
[2018-05-25] MEDS: DONEPEZIL 5 MG TABLET PO SCH (21:10)
[2018-05-25] MEDS: TAMSULOSIN 0.4 MG CAP.SR.24H PO SCH (21:10)
[2018-05-26] VITALS (42 sets, daily range): BP systolic 103–144; BP diastolic 47–78
[2018-05-26] MEDS: IPRATROPIUM NEB FS 0.5 MG/2.5 ML AMPUL.NEB NEB SCH ×3 (00:02→15:50)
[2018-05-26] MEDS: ALBUTEROL HALF STRENGTH 1.25 MG/3 ML VIAL.NEB NEB SCH ×3 (00:02→15:50)
[2018-05-26 04:41] LABS: BASOPHILS % (AUTO) 0.1 % (0.0-2.0); EOSINOPHILS % (AUTO) 2.6 % (0.0-6.0); HEMATOCRIT 27 % (39-51); HEMOGLOBIN 9.1 g/dL (13.5-17.5); LYMPHOCYTES # (AUTO) 1.1 /CMM (0.8-4.8); LYMPHOCYTES % (AUTO) 16.8 % (20.0-44.0); MEAN CORPUSCULAR HEMOGLOBIN 31 PG (26.0-33.0); MEAN CORPUSCULAR HGB CONC 34 g/dl (31.0-36.0); MEAN CORPUSCULAR VOLUME 91 fL (80-96); MONOCYTES # (AUTO) 0.4 /CMM (0.1-1.30); MONOCYTES % (AUTO) 6.1 % (2.0-12.0); NEUTROPHILS # (AUTO) 4.8 /CMM (1.8-8.9); NEUTROPHILS % (AUTO) 74.4 % (43.0-81.0); PLATELET COUNT (AUTO) 366 /CMM (150-450); RDW COEFFICIENT OF VARIATION 17.5 (11.5-15.0); RED BLOOD CELL COUNT(AUTO) 2.96 MIL/uL (4.5-6.0); WHITE BLOOD COUNT (AUTO) 6.4 K/uL (4.3-11.0)
[2018-05-26 04:46] LABS: CALCIUM, SERUM 8.2 mg/dL (8.5-10.1); CARBON DIOXIDE 25 mmol/L (21-32); CHLORIDE 108 mmol/L (98-107); GLUCOSE 94 mg/dL (74-106); MAGNESIUM 1.5 mg/dL (1.8-2.4); PHOSPHORUS 3.5 mg/dL (2.5-4.9); POTASSIUM 3.3 mmol/L (3.5-5.1); SODIUM SERUM 142 mmol/L (136-145); UREA NITROGEN, BLOOD 21 mg/dL (7-18)
[2018-05-26] MEDS: BLOOD SUGAR DIAGNOSTIC 1 EACH STRIP IN SCH ×4 (05:12→23:14)
[2018-05-26] MEDS: INSULIN REGULAR, HUMAN 100 UNIT/ML 3 ML VIAL SQ PRN ×3 (05:17→23:21)
--- NOTE | 2018-05-26 06:00 | NUR ---
RN CLOSING NOTES PT REMAINS STABLE OF THE MOMENT. ALL DUE MEDS GIVEN, AM CARE PROVIDED. WILL ENDORSE LILLIAN TO AM RN
--- NOTE | 2018-05-26 08:00 | NUR ---
received pt from night, shift, obtunded, moves to localized pain, ST, on 5L simple mask, sat well, lungs congested, some edema, f/c OK output, HD pt, having HD now, GT to feeding, tolerates well, v/s stable, no pain, pt turned and repositioned, family at the bedside.
[2018-05-26] MEDS: CADEXOMER IODINE 40 GM TUBE TP SCH (09:39)
[2018-05-26] MEDS: MEMANTINE HCL 5 MG TABLET PO SCH (09:41)
[2018-05-26] MEDS: CLONIDINE HCL 0.2MG/24H PTWK 1 EA PATCH TD SCH (09:42)
[2018-05-26] MEDS ORDERED: LIDOCAINE 1%-EPI 1:100,000 20 ML VIAL TP ONE (11:30)
[2018-05-26] MEDS ORDERED: SILVER NITRATE APPLICATOR 1 EA BOX TP ONE (11:30)
[2018-05-26] MEDS: CEFTRIAXONE 1 G in IV NS 0.9% 50 ML IV SCH (11:43)
--- NOTE | 2018-05-26 12:06 | NUR ---
pt is resting in the bed, v/s stable, no pain, HD done 1L out, tolerates feeding, pt turned and repositioned q2hrs.
--- NOTE | 2018-05-26 16:26 | NUR ---
pt is transferred to [facility], ACLS followed, v/s stable, no pain.
--- NOTE | 2018-05-26 16:29 | NUR ---
[facility] RN NOTE [facility] PT WITH EYES CLOSED, OPENS EYES TO SEVERE PAIN. ST ON TELE. TOLERATING O2 VIA NC. G-TUBE PLACEMENT VERIFIED BY AUSCULTATION. NO GASTRIC CONTENT OBTAINED. WEIR TO GRAVITY DRAINING YELLOW URINE. SOFT STOOL OBSERVED, SACRAL DRESSING CHANGED ORDERED. VITAL SIGNS STABLE. WILL CONTINUE TO MONITOR PT FOR SAFETY AND COMFORT. BED IN LOW AND LOCKED POSITION. CALL LIGHT WITHIN REACH.
[2018-05-26] MEDS: NEPRO 1,000 ML BOTTLE GT PRN (16:45)
--- NOTE | 2018-05-26 19:00 | NUR ---
[facility] RN NOTE PT REMAINS STABLE, ST ON TELE. TOLERATING O2 VIA NC. NO S/O DISTRESS/PAIN OBSERVED. WEIR TO GRAVITY DRAINING YELLOW URINE. G-TUBE PLACEMENT VERIFIED BY AUSCULTATION. IV SITES C/D/I/PATENT. NO S/O INFILTRATION/PHLEBITIS OBSERVED UPON FLUSHING. PT'S CARE WILL BE ENDORSED TO SENIOR APPLICATION SOFTWARE ENGINEER RN FOR CONTINUITY OF CARE. BED IN LOW AND LOCKED POSITION. CALL LIGHT WITHIN REACH.
[2018-05-26] MEDS ORDERED: Magnesium 1GM/D5W 100ML PREMIX 100 ML IV SCH (20:00)
[2018-05-26] MEDS: ENOXAPARIN SODIUM 30 MG/0.3 ML DISP.SYRIN SQ SCH (20:35)
[2018-05-26] MEDS: TAMSULOSIN 0.4 MG CAP.SR.24H PO SCH (21:19)
[2018-05-26] MEDS: DONEPEZIL 5 MG TABLET PO SCH (21:19)
[2018-05-27] VITALS: BP 122/60
[2018-05-27] MEDS: ALBUTEROL HALF STRENGTH 1.25 MG/3 ML VIAL.NEB NEB SCH ×4 (00:46→23:24)
[2018-05-27] MEDS: IPRATROPIUM NEB FS 0.5 MG/2.5 ML AMPUL.NEB NEB SCH ×4 (00:46→23:24)
[2018-05-27 04:00] VITALS: BP 136/67
[2018-05-27] MEDS: BLOOD SUGAR DIAGNOSTIC 1 EACH STRIP IN SCH ×4 (05:16→23:03)
[2018-05-27] MEDS: INSULIN REGULAR, HUMAN 100 UNIT/ML 3 ML VIAL SQ PRN ×4 (05:17→23:03)
--- NOTE | 2018-05-27 07:15 | NUR ---
ALESHIA/INITIAL RN NOTES RECEIVED PT IN BED ASLEEP BUT AROUSABLE TO NAME AND LIGHT TOUCH. ON 3L O2 VIA NC, TOLERATING WELL. NO SOB NOTED. SINUS TACHY ON TELE MONITOR. NO SIGNS OF PAIN NOTED. WITH ONGOING GTF NEPRO AT 45 ML/HR. GT INTACT AND PATENT. NO RESIDUE NOTED. WITH INTACT RAC, SUB CLAVIAN HD CATH, AND R REMORAL TLC. NO SIGNS OF INFECTION NOTED. SAFETY MEASURES AND ASPIRATION PRECAUTION OBSERVED. CALL LIGHT WITHIN REACH. WILL CONT TO MONITOR
[2018-05-27 08:00] VITALS: BP 137/68
[2018-05-27] MEDS: MEMANTINE HCL 5 MG TABLET PO SCH (08:49)
[2018-05-27] MEDS: CLONIDINE HCL 0.2MG/24H PTWK 1 EA PATCH TD SCH (08:50)
[2018-05-27] MEDS ORDERED: Magnesium 1GM/D5W 100ML PREMIX 100 ML IV SCH (09:00)
[2018-05-27] MEDS: CADEXOMER IODINE 40 GM TUBE TP SCH (09:47)
[2018-05-27] MEDS ORDERED: ALBUMIN 25% 25 GM in PREMIX 1 EA IV PRN (10:00)
--- NOTE | 2018-05-27 11:00 | NUR ---
RN NOTES HD DONE, PER HD NURSE REMOVED 1600ML, CURRENT VS T:97.8; P:120; R:20; BP: 119/59; O2 SAT 98% ON 3L. SEE HD NURSE NOTES
[2018-05-27 12:00] VITALS: BP 125/56
[2018-05-27 16:00] VITALS: BP 101/58
[2018-05-27] MEDS ORDERED: IV NS 0.9% 500 ML IV ONE ×2 (17:30)
--- NOTE | 2018-05-27 17:30 | NUR ---
RN NOTES PT ST ON TELE MONITOR AT 120-130S. NOTIFIED DR DOLAN WITH ORDERS: IV BOLUS NS 500ML X1. ORDERS NOTED AND CARRIED OUT. WILL CONT TO MONITOR
[2018-05-27] MEDS: NEPRO 1,000 ML BOTTLE GT PRN (18:14)
--- NOTE | 2018-05-27 18:15 | NUR ---
RN NOTES PT'S HR ON TELE MONITOR 112-116. WILL CONT TO MONITOR
--- NOTE | 2018-05-27 19:22 | NUR ---
ALESHIA/RN CLOSING NOTES PT STILL LETHARGIC, NO SOB NOTED, KEPT CLEAN AND DRY.SAFETY MEASURES AND ASPIRATION PRECAUTION MAINTAINED, ST 112 ON TELEMONITOR. ALL NEEDS ATTENDED, ENDORSED TO PM SHIFT RN FOR LILLIAN
--- NOTE | 2018-05-27 19:22 | NUR ---
ALESHIA RN NOTES RECEIVED PT ON BED , WITH FAMILY ON BEDSIDE. ON TELE MONITOR ST 115 HR. ON NASAL CANNULA 3LPM. SATURATING WELL. GTUBE FEEDING NEPRO 45CC/HR NO RESIDUAL. IV ACCESS ON RAC #20 SL AND RIGHT FEMORAL TRIPLE LUMEN CENTRAL LINE PATENT AND INTACT. HD ACCESS ON RIGHT SUBCLAVIAN HD CATH NO SIGN OF INFECTION OR BLEEDING. WEIR CATHETER DRAINING WELL. HEAD OF BED ELEVATED. SIDE RAILS UP. CALL LIGHT IS WITHIN REACH. WILL CONTINUE TO MONITOR PT CLOSELY.
[2018-05-27 20:00] VITALS: BP 135/71
[2018-05-27] MEDS: DONEPEZIL 5 MG TABLET PO SCH (21:03)
[2018-05-27] MEDS: TAMSULOSIN 0.4 MG CAP.SR.24H PO SCH (21:03)
[2018-05-27] MEDS: ENOXAPARIN SODIUM 30 MG/0.3 ML DISP.SYRIN SQ SCH (21:03)
[2018-05-28] VITALS: BP 104/53
[2018-05-28] MEDS: ACETAMINOPHEN 325 MG TABLET PO PRN ×2 (00:17→22:10)
--- NOTE | 2018-05-28 00:49 | NUR ---
ALESHIA RN NOTES PT HR 120. GIVEN TYLENOL 650MG. RECHECKED AFTER 30MINS. HR IS 105. WILL CONTINUE TO MONITOR PT CLOSELY.
[2018-05-28 04:00] VITALS: BP_SYST 100; BP_SYST 95; BP_DIAS 42; BP_DIAS 54
[2018-05-28] MEDS: INSULIN REGULAR, HUMAN 100 UNIT/ML 3 ML VIAL SQ PRN ×4 (05:05→23:23)
[2018-05-28] MEDS: BLOOD SUGAR DIAGNOSTIC 1 EACH STRIP IN SCH ×4 (05:06→23:24)
--- NOTE | 2018-05-28 07:16 | NUR ---
TD RN NOTES NO ACUTE CHANGES NOTED DURING THE SHIFT. PROVIDED COMFORT AND SAFETY. DUE MEDS GIVEN. WILL ENDORSE TO THE AM NURSE FOR LILLIAN.
--- NOTE | 2018-05-28 07:16 | NUR ---
ALESHIA/RN INITIAL NOTES RECEIVED PT IN BED, ASLEEP, OPENS EYES WITH DEEP PAIN STIMULI. SR 87 ON TELEMONITOR. ON 3L O2 VIA NC. TOLERATING WELL. NO SIGNS OF PAIN. HOB ELEVATED. WITH ONGOING GTF NEPRO 45ML/HR. TOLERATING WELL, NO RESIDUE NOTED. FC INTACT AND DRAINING YELLOW COLORED URINE. WITH INTACT RAC, R FEMORAL TRIPLE LUMEN CATH, AND R SUBCLAVIAN HD CATH. NO SIGNS OF INFECTION NOTED. SAFETY MEASURES AND ASPIRATION PRECAUTION OBSERVED. CALL LIGHT WITHIN REACH. WILL CONT TO MONITOR. PT IS FOR EEG
[2018-05-28 08:00] VITALS: BP 119/56
[2018-05-28] MEDS: IPRATROPIUM NEB FS 0.5 MG/2.5 ML AMPUL.NEB NEB SCH ×3 (08:22→23:30)
[2018-05-28] MEDS: ALBUTEROL HALF STRENGTH 1.25 MG/3 ML VIAL.NEB NEB SCH ×3 (08:22→23:30)
[2018-05-28] MEDS: MEMANTINE HCL 5 MG TABLET PO SCH (08:42)
[2018-05-28] MEDS: CLONIDINE HCL 0.2MG/24H PTWK 1 EA PATCH TD SCH (08:43)
[2018-05-28] MEDS: ASPIRIN EC 81 MG TABLET.DR PO SCH (08:46)
[2018-05-28] MEDS: CADEXOMER IODINE 40 GM TUBE TP SCH (08:52)
[2018-05-28 12:00] VITALS: BP 120/45
--- NOTE | 2018-05-28 13:00 | NUR ---
RN NOTES CLARIFIED WITH MD MILY TADEO IF PT HAS DIALYSIS TODAY, PER , NO DIALYSIS TODAY
[2018-05-28 16:00] VITALS: BP_SYST 101; BP_SYST 109; BP_DIAS 43; BP_DIAS 61
[2018-05-28] MEDS: NEPRO 1,000 ML BOTTLE GT PRN (17:43)
--- NOTE | 2018-05-28 19:16 | NUR ---
TELE/RN CLOSING NOTES NO ACUTE CHANGES NOTED THROUGHOUT SHIFT. SAFETY MEASURES AND ASPIRATION PRECAUTION OBSERVED AT ALL TIMES. ALL NEEDS ATTENDED. ENDORSED TO PM SHIFT NURSE FOR LILLIAN
--- NOTE | 2018-05-28 19:34 | NUR ---
MEDIA LIAISON OFFICER NOTES RECEIVED PT ON BED. A/OX1. FAMILY ON BEDSIDE. ON NASAL CANNULA 3LPM SATURATING WELL. ON TELE MONITOR ST 110. ON G TUBE FEEDING NEPHRO @45CC/HR NO RESIDUAL. IV ACCESS ON RAC #20 AND RIGHT FEMORAL TLC PATENT AND INTACT. HD ACCESS ON RIGHT SUBCLAVIAN NO SIGN OF REDNESS OR BLEEDING. HEAD OF BED ELEVATED. SIDE RAILS UP. CALL LIGHT WITHIN REACH. WILL CONTINUE TO MONITOR PT CLOSELY.
[2018-05-28 20:00] VITALS: BP 104/49
[2018-05-28] MEDS: ENOXAPARIN SODIUM 30 MG/0.3 ML DISP.SYRIN SQ SCH (20:57)
[2018-05-28] MEDS: DONEPEZIL 5 MG TABLET PO SCH (21:00)
--- NOTE | 2018-05-28 21:44 | NUR ---
SPACE OPERATIONS OFFICER NOTES LOVENOX NOT GIVEN. PER DR MILY TADEO NOTES, D/C LOVENOX AND START HEPARIN SQ. WILL F/U IN THE MORNING
[2018-05-29] VITALS: BP 132/81
[2018-05-29] MEDS: ENOXAPARIN SODIUM 30 MG/0.3 ML DISP.SYRIN SQ SCH (00:17)
[2018-05-29 04:00] VITALS: BP 130/83
[2018-05-29] MEDS: INSULIN REGULAR, HUMAN 100 UNIT/ML 3 ML VIAL SQ PRN ×2 (05:07→11:43)
[2018-05-29] MEDS: BLOOD SUGAR DIAGNOSTIC 1 EACH STRIP IN SCH ×3 (05:07→17:22)
[2018-05-29 06:35] LABS: CALCIUM, SERUM 9.3 mg/dL (8.5-10.1); CARBON DIOXIDE 27 mmol/L (21-32); CHLORIDE 107 mmol/L (98-107); GLUCOSE 153 mg/dL (74-106); MAGNESIUM 2.5 mg/dL (1.8-2.4); PHOSPHORUS 2.6 mg/dL (2.5-4.9); POTASSIUM 3.8 mmol/L (3.5-5.1); SODIUM SERUM 141 mmol/L (136-145); UREA NITROGEN, BLOOD 48 mg/dL (7-18)
--- NOTE | 2018-05-29 06:50 | NUR ---
MANAGER ORANGE NOTES NO ACUTE CHANGES NOTED DURING THE SHIFT. DUE MEDS GIVEN. PROVIDED COMFORT AND SAFETY. WOUND CARE DONE. HEAD OF BED ELEVATED. SIDE RAILS UP. WILL ENDORSE TO THE AM NURSE FOR LILLIAN.
--- NOTE | 2018-05-29 07:30 | NUR ---
ROOFER APPLICATOR OPENING NOTES RECEIVED PT LAYING IN BED WITH HOB ELEVATED, RESTING COMFORTABLY. PT APPEARS TO BE LETHARGIC BUT AROUSABLE WHEN NAMED CALLED. RESPIRATIONS ARE EVEN AND UNLABORED, NO TIN ANY ACUTE DISTRESS NOTED. NO FACIAL GRIMACING OR MOANING NOTED. IV ACCESS INTACT, NO INFILTRATION NOTED, DRESSING KEPT CLEAN AND DRY. WILL REPOSITION PER PROTOCOL. SAFETY MEASURES ARE IN PLACE. WILL CONTINUE TO MONITOR THROUGHOUT SHIFT.
[2018-05-29 07:36] LABS: BASOPHILS # (AUTO) 0.1 /CMM (0.0-0.2); EOSINOPHILS % (AUTO) 4.3 % (0.0-6.0); HEMATOCRIT 33 % (39-51); HEMOGLOBIN 10.5 g/dL (13.5-17.5); LYMPHOCYTES # (AUTO) 1.7 /CMM (0.8-4.8); LYMPHOCYTES % (AUTO) 23.4 % (20.0-44.0); MEAN CORPUSCULAR HEMOGLOBIN 29 PG (26.0-33.0); MEAN CORPUSCULAR HGB CONC 32 g/dl (31.0-36.0); MEAN CORPUSCULAR VOLUME 90 fL (80-96); MONOCYTES # (AUTO) 0.7 /CMM (0.1-1.30); MONOCYTES % (AUTO) 8.8 % (2.0-12.0); NEUTROPHILS # (AUTO) 4.6 /CMM (1.8-8.9); NEUTROPHILS % (AUTO) 62.5 % (43.0-81.0); PLATELET COUNT (AUTO) 370 /CMM (150-450); RDW COEFFICIENT OF VARIATION 17.9 (11.5-15.0); RED BLOOD CELL COUNT(AUTO) 3.61 MIL/uL (4.5-6.0); WHITE BLOOD COUNT (AUTO) 7.4 K/uL (4.3-11.0)
[2018-05-29 08:00] VITALS: BP 150/69
[2018-05-29] MEDS: ALBUTEROL HALF STRENGTH 1.25 MG/3 ML VIAL.NEB NEB SCH ×2 (08:15→15:39)
[2018-05-29] MEDS: IPRATROPIUM NEB FS 0.5 MG/2.5 ML AMPUL.NEB NEB SCH ×2 (08:15→15:39)
[2018-05-29] MEDS: ASPIRIN EC 81 MG TABLET.DR PO SCH (08:58)
[2018-05-29] MEDS: MEMANTINE HCL 5 MG TABLET PO SCH (08:58)
[2018-05-29] MEDS: CLONIDINE HCL 0.2MG/24H PTWK 1 EA PATCH TD SCH (09:00)
[2018-05-29] MEDS ORDERED: ASPIRIN 81 MG TAB.CHEW GT SCH (09:00)
[2018-05-29] MEDS ORDERED: DONEPEZIL 5 MG TABLET GT SCH (09:13)
[2018-05-29] MEDS ORDERED: MEMANTINE HCL 5 MG TABLET GT SCH (09:13)
[2018-05-29] MEDS ORDERED: MAGNESIUM HYDROXIDE 30 ML UDC GT PRN (09:14)
[2018-05-29] MEDS ORDERED: MAG HYDROX/AL HYDROX/SIMETH 30 ML UDC GT PRN (09:14)
[2018-05-29] MEDS ORDERED: ACETAMINOPHEN 650 MG/20.3 ML UDC GT PRN (09:30)
--- NOTE | 2018-05-29 09:47 | NUR ---
RECRUITER NOTES PAGED DOCK OR PIER LABORER NEPHRO DR. FLORES TO CLARIFY ADMINISTRATION OF LOVENOX DR. TADEO WROTE D/C LOVENOX IN HER NOTES PRIOR TO PEG PLACEMENT. STILL WAITING A CALL BACK.
--- NOTE | 2018-05-29 10:37 | NUR ---
SEASONAL DELIVERY DRIVER NOTES RECEIVED A CLAL BACK FROM NEPHRO, SPOKE WITH DR. TADEO W/ ORDERS TO D/C LOVENOX AND START HEPARIN 5000U SQ BID. ORDERS READ BACK AND VERIFIED. ORDERS NOTED AND CARRIED OUT. FAMILY AND PT MADE AWARE.
[2018-05-29] MEDS: CADEXOMER IODINE 40 GM TUBE TP SCH (11:26)
[2018-05-29 12:00] VITALS: BP 115/54
--- NOTE | 2018-05-29 12:37 | NUR ---
IMMIGRATION OFFICER NOTES DIALYSIS DONE IN 2.5 HOURS WITH 1400CC OUT. PT TOLERATED WELL. VITAL SIGNS: BP 121/59 HR 113 T98.3 SPO2 @2L/MIN VIA NC 98%. PT NOT IN ANY APPARENT DISTRESS. WILL CONTINUE TO MONITOR THROUGHOUT SHIFT.
--- NOTE | 2018-05-29 15:17 | NUR ---
MECHANIC WELDER NOTES CALLED RADIOLOGY TO FOLLOW UP ON EEG FROM 05/27/18. PER COOKER SODA, EEG WAS DONE ON 05/27 AND WAITING FOR A DOCTOR TO READ RESULTS. INFORMED DTR BECKI. WILL CONTINUE TO FOLLOW UP.
[2018-05-29 16:00] VITALS: BP 112/54
--- NOTE | 2018-05-29 16:57 | NUR ---
SYSTEMS ENGINEER NOTES PT SEEN AND EXAMINED BY DR. DOLAN W/ ORDERS TO D/C WEIR CATH. NOTED AND CARRIED OUT. FAMILY MADE AWARE.
--- NOTE | 2018-05-29 17:00 | NUR ---
FAMILY AND MARRIAGE COUNSELLOR NOTES PER DR. DOLAN, "D/C TELEMETRY."
[2018-05-29] MEDS ORDERED: MORPHINE SULFATE PF DRIP 250 MG in IV D5W 240 ML IV PRN (17:30)
--- NOTE | 2018-05-29 17:59 | NUR ---
MS RN NOTES CLARIFIED TUBE FEEDING ORDER WITH DR. DOLAN. PER DR. DOLAN, CONTINUE GT FEEDING NEPRO 45ML/HR, FREE WATER 250CC Q6H. ORDERS NOTED AND CARRIED OUT. FAMILY MADE AWARE.
[2018-05-29] MEDS ORDERED: NEPRO 1,000 ML BOTTLE GT PRN (18:00)
--- NOTE | 2018-05-29 18:34 | NUR ---
MS RN CLOSING NOTES ALL DUE MEDS GIVEN, NEEDS MET AND RENDERED. FAMILY AT BEDSIDE AT THIS TIME. PT IS NOT IN ANY APPARENT DISTRESS, RESPIRATIONS ARE EVEN AND UNLABORED. WEIR HAS BEEN D/C'D W/ NO BLEEDING NOTED. TRIPLE LUMEN ACCESS INTACT. DRESSING KEPT CLEAN AND DRY. GT FEEDING CURRENTLY RUNNING AND PT TOLERATING WELL W/ NO RESIDUAL. SAFETY MEASURES ARE IN PLACE. WILL CONTINUE TO REPOSITION PER PROTOCOL. WILL ENDORSE TO NEXT SHIFT FOR CONTINUITY OF CARE.
[2018-05-29] MEDS ORDERED: KEY,NONCONTROL,TO KEEP IN PYXI 1 EA MC ONE (18:45)
--- NOTE | 2018-05-29 19:01 | NUR ---
MS RN NOTES MORPHINE DRIP STARTED VIA VETERINARY SURGERY TECHNICIAN PUMP WITH FAMILY AT BEDSIDE. ADMINISTERED WITH CHARGE NURSE.
--- NOTE | 2018-05-29 19:30 | NUR ---
RN NOTES RECEIVED PATIENT IN BED, SLEEPING, AROUSABLE TO LIGHT PAIN. NON-VERBAL. NO ACUTE DISTRESS NOTED. NO SIGNS OF PAIN NOTED. IV SITE PATENT, INTACT; MORPHINE DRIP ONGOING AT 2 MG/ML (REVIEWED WITH OUTGOING DAY NURSE). HD CATH INTACT. ON LOW BED WITH BILATERAL UPPER SIDE RAILS UP. CALL SMITH WITHIN EASY REACH. WILL CONTINUE TO MONITOR.
[2018-05-29 20:00] VITALS: BP 117/70
[2018-05-29] MEDS ORDERED: HEPARIN SODIUM, PORCINE 5000 UNITS/1 ML VIAL SQ SCH (21:00)
[2018-05-30] MEDS: BLOOD SUGAR DIAGNOSTIC 1 EACH STRIP IN SCH ×2 (00:17→06:02)
[2018-05-30] MEDS: INSULIN REGULAR, HUMAN 100 UNIT/ML 3 ML VIAL SQ PRN ×2 (00:27→06:05)
[2018-05-30 04:00] VITALS: BP 100/49
--- NOTE | 2018-05-30 04:30 | NUR ---
RN NOTES MORPHINE DRIP INCREASED TO 3 MG/ML FOR PATIENT'S COMFORT. WILL CONTINUE TO MONITOR.
--- NOTE | 2018-05-30 06:00 | NUR ---
RN NOTES PATIENT ASLEEP, AROUSABLE. RESPIRATIONS EVEN. NO SIGNS OF PAIN NOTED. GTF ONGOING. PATIENT TOLERATING GTF WITH NO RESIDUAL NOTED. NEEDS ATTENDED. KEPT CLEAN, DRY, AND COMFORTABLE. SAFETY PRECAUTIONS AND COMFORT MEASURES IN PLACE. WILL GIVE REPORT TO DAY SHIFT FOR CONTINUITY OF CARE.
[2018-05-30 06:06] VITALS: BP 95/42
--- NOTE | 2018-05-30 07:05 | NUR ---
ms rn initial notes Received patient in bed, asleep, appears comfortable. On morphine drip @ 3mg/hr, received with 26.5mg infused to the patient. on GT feeding infusing well. 02 @2lpm via NC with 02 sat of 100%. Will continue to monitor.
[2018-05-30 08:00] VITALS: BP 78/42
[2018-05-30 08:37] VITALS: BP 78/42
[2018-05-30] MEDS: CADEXOMER IODINE 40 GM TUBE TP SCH (08:37)
[2018-05-30] MEDS: CLONIDINE HCL 0.2MG/24H PTWK 1 EA PATCH TD SCH (08:37)
--- NOTE | 2018-05-30 08:38 | NUR ---
ms rn notes Held bp meds due to patient bp is 78/42.
--- NOTE | 2018-05-30 11:15 | NUR ---
MS NURSE,patient DNR status with absent respirations ,pulseless no audible heart tones ,pupils fixed and dilated,pronounced at present time and nursing wet room supervisor was notified at this time
--- NOTE | 2018-05-30 15:00 | NUR ---
ms rn notes 11:15am Patient at this time and validated by charge nurse. 11:17am Family called and informed about patient at 11:15am. 11:20am Called MD and made aware about patient time. 11:25am office supervisor called and made aware also. 11:40am Son came and offered water. Extra chairs provided for the family and closed door for privacy. 12:30pm per family they will call mortuary of choice to supervisor picking crew the , and made aware that the only allowed to be in the room for 3 hours then will take the body to the morgue and made aware. 15:00pm Took the to the morgue into the freezer, supervisor scrap preparation made aware and will release the body once mortuary of choice surgical sales representative comes.
== END 2018-05-30 11:15 | disposition expired | DRG 981 ==
LOC: TELE 15:48 → ICU 20:57 → TELE-TD 05-26 16:04 → TELE1 05-28 17:27 → MEDSG1 05-29 17:39
PROVIDERS: ADMIT Internal Medicine; ATTEND Family Medicine
PROC: 0DH63UZ Insertion of Feeding Device into Stomach, Percutaneous Approach (ICD-10-PCS; 2018-05-23)
PROC: 3E0G76Z Introduction of Nutritional Substance into Upper GI, Via Natural or Artificial Opening (ICD-10-PCS; 2018-05-23)
PROC: 0KBC0ZZ Excision of Right Hand Muscle, Open Approach (ICD-10-PCS; principal; 2018-05-26)
DX: E11.641 Type 2 diabetes mellitus with hypoglycemia with coma (principal); N18.6 End stage renal disease; G92 Toxic encephalopathy; I13.2 Hypertensive heart and chronic kidney disease with heart failure and with stage 5 chronic kidney disease, or end stage renal disease; J98.11 Atelectasis; E11.22 Type 2 diabetes mellitus with diabetic chronic kidney disease; S61.401A Unspecified open wound of right hand, initial encounter; E11.36 Type 2 diabetes mellitus with diabetic cataract; E78.5 Hyperlipidemia, unspecified; E83.42 Hypomagnesemia; E83.51 Hypocalcemia; Z96.649 Presence of unspecified artificial hip joint; I25.10 Atherosclerotic heart disease of native coronary artery without angina pectoris; Z98.890 Other specified postprocedural states; Z87.442 Personal history of urinary calculi; Z86.73 Personal history of transient ischemic attack (TIA), and cerebral infarction without residual deficits; Z82.49 Family history of ischemic heart disease and other diseases of the circulatory system; J44.9 Chronic obstructive pulmonary disease, unspecified; N40.0 Benign prostatic hyperplasia without lower urinary tract symptoms; M19.90 Unspecified osteoarthritis, unspecified site; M81.0 Age-related osteoporosis without current pathological fracture; L89.150 Pressure ulcer of sacral region, unstageable; D63.8 Anemia in other chronic diseases classified elsewhere; R63.0 Anorexia; Z68.23 Body mass index [BMI] 23.0-23.9, adult; F17.200 Nicotine dependence, unspecified, uncomplicated; R13.10 Dysphagia, unspecified; I50.9 Heart failure, unspecified; T17.990A Other foreign object in respiratory tract, part unspecified in causing asphyxiation, initial encounter; X58.XXXA Exposure to other specified factors, initial encounter; Y92.129 Unspecified place in nursing home as the place of occurrence of the external cause; H91.90 Unspecified hearing loss, unspecified ear; G47.33 Obstructive sleep apnea (adult) (pediatric); R23.3 Spontaneous ecchymoses; Z51.5 Encounter for palliative care; F03.90 Unspecified dementia, unspecified severity, without behavioral disturbance, psychotic disturbance, mood disturbance, and anxiety; J32.9 Chronic sinusitis, unspecified; S70.01XA Contusion of right hip, initial encounter; S70.11XA Contusion of right thigh, initial encounter; W19.XXXA Unspecified fall, initial encounter; Y92.838 Other recreation area as the place of occurrence of the external cause; R26.9 Unspecified abnormalities of gait and mobility; R91.8 Other nonspecific abnormal finding of lung field; D64.9 Anemia, unspecified; E87.6 Hypokalemia
CPT/HCPCS: 31720; 36415; 36600; 71045-TC; 80048-TC; 80053-TC; 82962-TC; 83540-TC; 83605-TC; 83735-TC; 84100-TC; 85025-TC; 85610-TC; 87081-TC; 90935-TC; 92611-TC; 94762-TC; 94799-TC; 95819-TC; A4216; A4606; A4624; A6253; A6402; A6403; J0696; J1650; J1815; J2274; J3475; J3490; J7040; J7050; J7060; P9047; Z7610